=== PATIENT | female | born 1975 | race Caucasian/White ===

== ENCOUNTER 2018-08-04 12:11 | Emergency (ER) | payer SELFPAY ==
[2018-08-04] MEDS ORDERED: Dexamethasone 4 mg/ml Vial ONE (13:14)
[2018-08-04 13:33] LABS: #Lymphocytes 0.9 thou/uL (1.20-3.40); #Monocytes 0.5 thou/uL (0.11-0.59); %Eosinophils 0.1 % (0.0-10.0); %Lymphocytes 16.6 % (21.0-51.0); %Monocytes 10.1 % (0.0-10.0); %Neutrophils 73.3 % (42.0-75.0); Hemoglobin 14.7 g/dL (12.0-16.0); Mean Corpuscular HGB CONC 33.3 g/dL (32.0-36.0); Mean Corpuscular Hemoglobin 30.4 pg (27.0-31.0); Mean Corpuscular Volume 91.1 fL (78.0-98.0); Mean Platelet Volume 8.5 fL (7.4-10.4); Platelet Count 152 thou/uL (130-400); RBC Distribution Width 12.2 % (11.5-14.5); Red Blood Cell (RBC) Count 4.83 mill/uL (4.20-5.40); White Blood Cell (WBC) Count 5.4 thou/uL (4.8-10.8)
[2018-08-04 13:50] LABS: ALT (SGPT) 14 U/L (8-55); AST (SGOT) 17 U/L (5-34); Albumin 3.4 g/dL (3.5-5.0); Alkaline Phosphatase 59 U/L (40-150); Anion Gap 12 mmol/L (10-20); BUN (Urea Nitrogen) 13 mg/dL (7.0-18.7); Bilirubin, Total 0.3 mg/dL (0.2-1.2); Calc. Creatinine Clearance 0 mL/min (70-130); Calcium 8.7 mg/dL (7.8-10.44); Carbon Dioxide 25 mmol/L (22-29); Chloride 104 mmol/L (98-107); Estimated GFR-MDRD 70; Globulin 2.5 g/dL (2.4-3.5); Glucose 257 mg/dL (70-105); Potassium 3.7 mmol/L (3.5-5.1); Protein, Total 5.9 g/dL (6.0-8.3); Sodium 137 mmol/L (136-145)
--- NOTE | 2018-08-04 13:55 | RAD ---
PA AND LATERAL CHEST: History: Shortness of breath. FINDINGS: Heart size and mediastinum within normal limits. The lungs are clear of infiltrates. No significant b say findings. IMPRESSION: No active intrathoracic disease. POS: [facility]
== END 2018-08-04 14:24 | disposition home or self-care (01) ==
LOC: ERS 12:11
DX: J44.1 Chronic obstructive pulmonary disease with (acute) exacerbation (principal); E78.5 Hyperlipidemia, unspecified; E11.9 Type 2 diabetes mellitus without complications; I10 Essential (primary) hypertension; F31.9 Bipolar disorder, unspecified; F17.210 Nicotine dependence, cigarettes, uncomplicated; Z79.899 Other long term (current) drug therapy
CPT/HCPCS: 36415; 71046; 80053; 83880; 84484; 85025; 85379; 93005; 94640; J1100; J7620

== ENCOUNTER 2021-02-06 10:50 | Inpatient (IN) | payer SELFPAY ==
[2021-02-06] MEDS: Labetalol HCl 100 MG/20 ML VIAL SLOW IVP PRN (18:23)
[2021-02-06] MEDS ORDERED: Ondansetron PF 4 MG/2 ML Vial IVP PRN (18:30)
[2021-02-06] MEDS ORDERED: Ondansetron ODT 4 MG TAB SL PRN (18:30)
[2021-02-06] MEDS ORDERED: Dextrose 50% Abboject 50 ML SYRINGE SLOW IVP PRN (18:36)
[2021-02-06] MEDS ORDERED: Dextrose 5% in Water 1,000 ML IV PRN (18:36)
[2021-02-06] MEDS ORDERED: Furosemide 40 MG/4 ML VIAL SLOW IVP SCH ×2 (21:00→23:00)
[2021-02-06] MEDS ORDERED: Carvedilol 25 MG TAB PO SCH (21:00)
[2021-02-06] MEDS: hydrALAZINE 25 MG TAB PO SCH ×2 (21:39→22:59)
[2021-02-06] MEDS: Heparin 5,000 UNITS/ML VIAL SC SCH (21:40)
[2021-02-06] MEDS: Rosuvastatin 10 MG TAB PO SCH (22:11)
[2021-02-06 22:24] LABS: Anion Gap 13 mmol/L (10-20); BUN (Urea Nitrogen) 45 mg/dL (7.0-18.7); Calc. Creatinine Clearance 35 mL/min (70-130); Calcium 8.5 mg/dL (7.8-10.44); Carbon Dioxide 24 mmol/L (22-29); Chloride 109 mmol/L (98-107); Glucose 138 mg/dL (70-105); Potassium 4.9 mmol/L (3.5-5.1); Sodium 141 mmol/L (136-145)
[2021-02-06] MEDS: NPH, Human Insulin Isophane 300 UNIT/3 ML VIAL SC SCH (22:50)
[2021-02-06] MEDS: Gabapentin 300 MG CAP PO SCH (22:50)
[2021-02-06] MEDS ORDERED: Gabapentin 300 MG CAP PO SCH (23:00)
[2021-02-07] MEDS ORDERED: traMADol HCl 50 MG TAB PO PRN (00:28)
[2021-02-07 05:27] LABS: Hemoglobin 7.4 g/dL (12.0-16.0); Mean Corpuscular HGB CONC 32.8 g/dL (32.0-36.0); Mean Corpuscular Hemoglobin 28.9 pg (27.0-31.0); Mean Corpuscular Volume 88.1 fL (78.0-98.0); Mean Platelet Volume 8.8 fL (7.4-10.4); Platelet Count 223 thou/uL (130-400); RBC Distribution Width 13.4 % (11.5-14.5); Red Blood Cell (RBC) Count 2.57 mill/uL (4.20-5.40)
[2021-02-07 05:45] VITALS: BMI 38.3
[2021-02-07 05:50] LABS: Anion Gap 11 mmol/L (10-20); BUN (Urea Nitrogen) 48 mg/dL (7.0-18.7); Calc. Creatinine Clearance 35 mL/min (70-130); Calcium 7.9 mg/dL (7.8-10.44); Carbon Dioxide 22 mmol/L (22-29); Chloride 112 mmol/L (98-107); Glucose 141 mg/dL (70-105); Potassium 4.7 mmol/L (3.5-5.1); Sodium 140 mmol/L (136-145)
[2021-02-07] MEDS: NPH, Human Insulin Isophane 300 UNIT/3 ML VIAL SC SCH ×2 (08:53→20:37)
[2021-02-07] MEDS: Heparin 5,000 UNITS/ML VIAL SC SCH ×3 (08:54→20:38)
[2021-02-07] MEDS: hydrALAZINE 25 MG TAB PO SCH ×3 (08:55→20:34)
[2021-02-07] MEDS ORDERED: Albumin 25% 25 GM/100 ML BOT IVPB ONE (09:00)
[2021-02-07] MEDS: Albumin 25% 25 GM/100 ML BOT IVPB SCH ×3 (09:25→21:56)
[2021-02-07] MEDS ORDERED: ALPRAZolam 0.5 MG TAB PO SCH (10:15)
[2021-02-07 11:43] LABS: Bilirubin Negative (Negative); Blood, Urine 3+ (Negative); Clarity Clear (Clear); Glucose, Urine (Dipstick) 200 mg/dL (Negative); Ketone, Urine Negative (Negative); Leukocyte Negative Leu/uL (Negative); Nitrite Negative (Negative); Protein, Urine (Dipstick) 300 mg/dL (Neg-Trace); RBC/HPF Greater than 50 HPF (0-3); Specific Gravity, Urine 1.019 (1.002-1.036); Squamous Epithelial None Seen HPF (0-3); Urobilinogen Normal mg/dL (Less than 2); WBC/HPF 0-3 HPF (0-3)
[2021-02-07 11:45] LABS: Bacteria/HPF 1+ HPF (None Seen)
[2021-02-07] MEDS: Ferrous Sulfate 325 MG TAB PO SCH (16:09)
[2021-02-07] MEDS: cloNIDine 0.1 MG TAB PO PRN (18:34)
[2021-02-07] MEDS: Gabapentin 300 MG CAP PO SCH (20:34)
[2021-02-07] MEDS: Rosuvastatin 10 MG TAB PO SCH (20:34)
[2021-02-08] MEDS: Albumin 25% 25 GM/100 ML BOT IVPB SCH ×6 (05:25→21:45)
[2021-02-08 05:26] LABS: #Eosinphils 0.4 thou/uL (0.0-0.7); #Lymphocytes 1.7 thou/uL (1.20-3.40); #Monocytes 0.5 thou/uL (0.11-0.59); #Neutrophils 4.8 thou/uL (1.40-6.50); %Basophils 0.6 % (0.0-1.0); %Eosinophils 5.9 % (0.0-10.0); %Lymphocytes 22.7 % (21.0-51.0); %Monocytes 6.6 % (0.0-10.0); %Neutrophils 64.2 % (42.0-75.0); Hemoglobin 7.3 g/dL (12.0-16.0); Mean Corpuscular HGB CONC 33.1 g/dL (32.0-36.0); Mean Corpuscular Hemoglobin 29.2 pg (27.0-31.0); Mean Corpuscular Volume 88.4 fL (78.0-98.0); Mean Platelet Volume 8.5 fL (7.4-10.4); Platelet Count 216 thou/uL (130-400); RBC Distribution Width 13.5 % (11.5-14.5); Red Blood Cell (RBC) Count 2.49 mill/uL (4.20-5.40); White Blood Cell (WBC) Count 7.5 thou/uL (4.8-10.8)
[2021-02-08 05:45] LABS: Anion Gap 11 mmol/L (10-20); BUN (Urea Nitrogen) 58 mg/dL (7.0-18.7); Calc. Creatinine Clearance 39 mL/min (70-130); Calcium 7.9 mg/dL (7.8-10.44); Carbon Dioxide 25 mmol/L (22-29); Chloride 110 mmol/L (98-107); Glucose 170 mg/dL (70-105); Potassium 4.6 mmol/L (3.5-5.1); Sodium 141 mmol/L (136-145)
[2021-02-08] MEDS: HumaLOG 300 UNITS/3 ML VIAL SC PRN ×2 (06:26→16:32)
[2021-02-08] MEDS: hydrALAZINE 25 MG TAB PO SCH ×3 (08:18→21:46)
[2021-02-08] MEDS: Heparin 5,000 UNITS/ML VIAL SC SCH ×3 (08:18→21:47)
[2021-02-08] MEDS: NPH, Human Insulin Isophane 300 UNIT/3 ML VIAL SC SCH ×2 (08:18→21:48)
[2021-02-08] MEDS: Ferrous Sulfate 325 MG TAB PO SCH ×2 (08:19→15:43)
[2021-02-08] MEDS: ALPRAZolam 0.5 MG TAB PO PRN ×2 (08:25→21:47)
[2021-02-08] MEDS: cloNIDine 0.1 MG TAB PO PRN ×2 (08:25→15:43)
[2021-02-08] MEDS ORDERED: Albumin 25% 25 GM/100 ML BOT IVPB ONE (08:28)
[2021-02-08] MEDS ORDERED: Benzonatate 100 MG CAP PO PRN (08:29)
[2021-02-08] MEDS ORDERED: guaiFENesin/Codeine 200 mg/20 mg 10 ml Cup PO PRN (08:30)
[2021-02-08] MEDS: Albuterol Sulfate 2.5 mg/3 ml Neb NEB PRN ×2 (08:38→21:32)
[2021-02-08] MEDS ORDERED: Epoetin (ESRD) 20,000 UNITS/ML SC SCH (08:45)
[2021-02-08] MEDS ORDERED: EPOETIN ALFA-EPBX (ESRD) 4,000 UNIT/ML VIAL SC SCH (12:00)
[2021-02-08] MEDS: Gabapentin 300 MG CAP PO SCH (21:45)
[2021-02-08] MEDS: Rosuvastatin 10 MG TAB PO SCH (21:45)
[2021-02-09] MEDS: Albumin 25% 25 GM/100 ML BOT IVPB SCH (02:37)
[2021-02-09 05:10] LABS: #Eosinphils 0.4 thou/uL (0.0-0.7); #Lymphocytes 1.5 thou/uL (1.20-3.40); #Monocytes 0.5 thou/uL (0.11-0.59); #Neutrophils 3.3 thou/uL (1.40-6.50); %Basophils 0.6 % (0.0-1.0); %Eosinophils 6.7 % (0.0-10.0); %Lymphocytes 26.9 % (21.0-51.0); %Monocytes 7.9 % (0.0-10.0); Hemoglobin 6.6 g/dL (12.0-16.0); Mean Corpuscular HGB CONC 32.6 g/dL (32.0-36.0); Mean Corpuscular Volume 88.9 fL (78.0-98.0); Mean Platelet Volume 8.3 fL (7.4-10.4); Platelet Count 207 thou/uL (130-400); RBC Distribution Width 13.2 % (11.5-14.5); Red Blood Cell (RBC) Count 2.26 mill/uL (4.20-5.40); White Blood Cell (WBC) Count 5.7 thou/uL (4.8-10.8)
[2021-02-09 05:32] LABS: Anion Gap 11 mmol/L (10-20); BUN (Urea Nitrogen) 60 mg/dL (7.0-18.7); Calc. Creatinine Clearance 40 mL/min (70-130); Calcium 8.3 mg/dL (7.8-10.44); Carbon Dioxide 23 mmol/L (22-29); Chloride 114 mmol/L (98-107); Glucose 99 mg/dL (70-105); Potassium 4.8 mmol/L (3.5-5.1); Sodium 143 mmol/L (136-145)
[2021-02-09] MEDS: Labetalol HCl 100 MG/20 ML VIAL SLOW IVP PRN (06:21)
[2021-02-09 07:54] LABS: Reticulocyte Count 1.2 % (0.5-1.5)
[2021-02-09] MEDS: hydrALAZINE 25 MG TAB PO SCH ×3 (08:07→20:59)
[2021-02-09] MEDS: cloNIDine 0.1 MG TAB PO PRN (08:07)
[2021-02-09] MEDS: Heparin 5,000 UNITS/ML VIAL SC SCH ×3 (08:07→21:01)
[2021-02-09] MEDS: Ferrous Sulfate 325 MG TAB PO SCH ×2 (08:07→17:08)
[2021-02-09] MEDS: NPH, Human Insulin Isophane 300 UNIT/3 ML VIAL SC SCH ×2 (08:11→20:59)
[2021-02-09 08:16] LABS: Iron 29 ug/dL (50-170); Iron Binding Capacity, Total 250 mcg/dL (265-497)
[2021-02-09 08:42] LABS: Ferritin 34.23 ng/mL (10-291)
[2021-02-09] MEDS: ALPRAZolam 0.5 MG TAB PO PRN ×2 (08:56→21:02)
[2021-02-09] MEDS ORDERED: Labetalol HCl 100 MG/20 ML VIAL SLOW IVP PRN (08:59)
[2021-02-09] MEDS: Amlodipine 5 MG TAB PO SCH (09:03)
[2021-02-09] MEDS: HumaLOG 300 UNITS/3 ML VIAL SC PRN (17:06)
[2021-02-09] MEDS: Gabapentin 300 MG CAP PO SCH (20:59)
[2021-02-09] MEDS: Rosuvastatin 10 MG TAB PO SCH (21:02)
[2021-02-10] MEDS: cloNIDine 0.1 MG TAB PO PRN ×2 (03:50→15:31)
[2021-02-10 04:41] LABS: #Eosinphils 0.6 thou/uL (0.0-0.7); #Lymphocytes 1.4 thou/uL (1.20-3.40); #Monocytes 0.7 thou/uL (0.11-0.59); #Neutrophils 6.4 thou/uL (1.40-6.50); %Basophils 0.4 % (0.0-1.0); %Eosinophils 6.4 % (0.0-10.0); %Lymphocytes 15.8 % (21.0-51.0); %Monocytes 7.6 % (0.0-10.0); %Neutrophils 69.9 % (42.0-75.0); Hemoglobin 8.3 g/dL (12.0-16.0); Mean Corpuscular HGB CONC 32.8 g/dL (32.0-36.0); Mean Corpuscular Hemoglobin 28.9 pg (27.0-31.0); Platelet Count 227 thou/uL (130-400); RBC Distribution Width 13.2 % (11.5-14.5); Red Blood Cell (RBC) Count 2.87 mill/uL (4.20-5.40); White Blood Cell (WBC) Count 9.1 thou/uL (4.8-10.8)
[2021-02-10 05:03] LABS: Anion Gap 11 mmol/L (10-20); BUN (Urea Nitrogen) 61 mg/dL (7.0-18.7); Calc. Creatinine Clearance 44 mL/min (70-130); Calcium 8.4 mg/dL (7.8-10.44); Carbon Dioxide 20 mmol/L (22-29); Chloride 111 mmol/L (98-107); Glucose 166 mg/dL (70-105); Potassium 4.7 mmol/L (3.5-5.1); Sodium 137 mmol/L (136-145)
[2021-02-10] MEDS: Heparin 5,000 UNITS/ML VIAL SC SCH ×3 (08:36→20:57)
[2021-02-10] MEDS: NPH, Human Insulin Isophane 300 UNIT/3 ML VIAL SC SCH (08:36)
[2021-02-10] MEDS: hydrALAZINE 25 MG TAB PO SCH ×3 (08:37→20:57)
[2021-02-10] MEDS: Ferrous Sulfate 325 MG TAB PO SCH ×2 (08:37→15:31)
[2021-02-10] MEDS: Amlodipine 5 MG TAB PO SCH (08:37)
[2021-02-10] MEDS: HumaLOG 300 UNITS/3 ML VIAL SC PRN (11:25)
[2021-02-10] MEDS: ALPRAZolam 0.5 MG TAB PO PRN (15:30)
[2021-02-10] MEDS: Sodium Bicarbonate Tab 325 MG TAB PO SCH ×2 (15:30→20:57)
[2021-02-10] MEDS: Albuterol Sulfate 2.5 mg/3 ml Neb NEB PRN (16:23)
[2021-02-10] MEDS: Carvedilol 6.25 MG TAB PO SCH (17:07)
[2021-02-10] MEDS: glipiZIDE 5 MG TAB PO SCH (17:07)
[2021-02-10] MEDS: Gabapentin 300 MG CAP PO SCH (20:56)
[2021-02-10] MEDS: Rosuvastatin 10 MG TAB PO SCH (20:57)
[2021-02-10] MEDS ORDERED: Senokot S 8.6-50 MG TAB PO PRN (21:12)
[2021-02-10] MEDS ORDERED: Bisacodyl 10 MG SUPP PR PRN (21:12)
[2021-02-10] MEDS: HumuLIN 70/30 (300 UNITS/3 ML VIAL) SC SCH (21:28)
[2021-02-11] MEDS: ALPRAZolam 0.5 MG TAB PO PRN (00:02)
[2021-02-11 04:40] LABS: #Eosinphils 0.7 thou/uL (0.0-0.7); #Lymphocytes 2.1 thou/uL (1.20-3.40); #Monocytes 0.8 thou/uL (0.11-0.59); #Neutrophils 5.5 thou/uL (1.40-6.50); %Basophils 0.4 % (0.0-1.0); %Eosinophils 8.1 % (0.0-10.0); %Lymphocytes 23.3 % (21.0-51.0); %Monocytes 8.3 % (0.0-10.0); %Neutrophils 59.8 % (42.0-75.0); Mean Corpuscular Hemoglobin 29.2 pg (27.0-31.0); Mean Corpuscular Volume 88.5 fL (78.0-98.0); Mean Platelet Volume 8.2 fL (7.4-10.4); Platelet Count 224 thou/uL (130-400); RBC Distribution Width 13.3 % (11.5-14.5); Red Blood Cell (RBC) Count 2.74 mill/uL (4.20-5.40); White Blood Cell (WBC) Count 9.2 thou/uL (4.8-10.8)
[2021-02-11 04:46] LABS: Hemoglobin A1c 6.5 % (4.0-6.0)
[2021-02-11 04:57] LABS: Anion Gap 10 mmol/L (10-20); BUN (Urea Nitrogen) 60 mg/dL (7.0-18.7); Calc. Creatinine Clearance 44 mL/min (70-130); Calcium 8.1 mg/dL (7.8-10.44); Carbon Dioxide 22 mmol/L (22-29); Chloride 114 mmol/L (98-107); Glucose 73 mg/dL (70-105); Potassium 4.8 mmol/L (3.5-5.1); Sodium 141 mmol/L (136-145)
[2021-02-11] MEDS: glipiZIDE 5 MG TAB PO SCH ×2 (08:29→16:00)
[2021-02-11] MEDS: Bisacodyl 5 MG TAB PO PRN (08:29)
[2021-02-11] MEDS: Amlodipine 5 MG TAB PO SCH (08:30)
[2021-02-11] MEDS: Carvedilol 6.25 MG TAB PO SCH (08:30)
[2021-02-11] MEDS: Sodium Bicarbonate Tab 325 MG TAB PO SCH ×3 (08:30→20:59)
[2021-02-11] MEDS: hydrALAZINE 25 MG TAB PO SCH ×3 (08:30→20:59)
[2021-02-11] MEDS: Ferrous Sulfate 325 MG TAB PO SCH ×2 (08:30→16:00)
[2021-02-11] MEDS: Heparin 5,000 UNITS/ML VIAL SC SCH ×3 (08:31→20:58)
[2021-02-11] MEDS: HumuLIN 70/30 (300 UNITS/3 ML VIAL) SC SCH ×2 (08:31→21:00)
[2021-02-11] MEDS ORDERED: Furosemide 20 MG TAB PO SCH ×2 (11:15→14:00)
[2021-02-11] MEDS ORDERED: Acetaminophen 325 MG TAB PO PRN (13:53)
[2021-02-11] MEDS ORDERED: Carvedilol 6.25 MG TAB PO SCH (17:00)
[2021-02-11] MEDS: Rosuvastatin 10 MG TAB PO SCH (20:59)
[2021-02-11] MEDS: Gabapentin 300 MG CAP PO SCH (21:00)
[2021-02-11] MEDS ORDERED: hydrOXYzine 25 MG TAB PO SCH (21:22)
[2021-02-11] MEDS: Albuterol Sulfate 2.5 mg/3 ml Neb NEB PRN (21:36)
[2021-02-12 04:27] LABS: #Eosinphils 0.7 thou/uL (0.0-0.7); #Lymphocytes 1.9 thou/uL (1.20-3.40); #Neutrophils 6.2 thou/uL (1.40-6.50); %Basophils 0.5 % (0.0-1.0); %Lymphocytes 19.3 % (21.0-51.0); %Monocytes 9.7 % (0.0-10.0); %Neutrophils 63.5 % (42.0-75.0); Hemoglobin 7.6 g/dL (12.0-16.0); Mean Corpuscular HGB CONC 32.6 g/dL (32.0-36.0); Mean Corpuscular Hemoglobin 28.8 pg (27.0-31.0); Mean Corpuscular Volume 88.2 fL (78.0-98.0); Mean Platelet Volume 8.3 fL (7.4-10.4); Platelet Count 219 thou/uL (130-400); RBC Distribution Width 13.4 % (11.5-14.5); Red Blood Cell (RBC) Count 2.63 mill/uL (4.20-5.40); White Blood Cell (WBC) Count 9.8 thou/uL (4.8-10.8)
[2021-02-12 04:50] LABS: Anion Gap 9 mmol/L (10-20); BUN (Urea Nitrogen) 59 mg/dL (7.0-18.7); Calc. Creatinine Clearance 43 mL/min (70-130); Calcium 8.6 mg/dL (7.8-10.44); Carbon Dioxide 23 mmol/L (22-29); Chloride 115 mmol/L (98-107); Glucose 93 mg/dL (70-105); Potassium 5.3 mmol/L (3.5-5.1); Sodium 142 mmol/L (136-145)
[2021-02-12] MEDS: Sodium Bicarbonate Tab 325 MG TAB PO SCH (08:36)
[2021-02-12] MEDS: Heparin 5,000 UNITS/ML VIAL SC SCH (08:37)
[2021-02-12] MEDS: Ferrous Sulfate 325 MG TAB PO SCH (08:37)
[2021-02-12] MEDS: Amlodipine 5 MG TAB PO SCH (08:37)
[2021-02-12] MEDS: glipiZIDE 5 MG TAB PO SCH (08:37)
[2021-02-12] MEDS: HumuLIN 70/30 (300 UNITS/3 ML VIAL) SC SCH (08:38)
[2021-02-12] MEDS: Bisacodyl 5 MG TAB PO PRN (08:50)
[2021-02-12] MEDS ORDERED: Carvedilol 25 MG TAB PO SCH (09:00)
[2021-02-12] MEDS ORDERED: hydrALAZINE 25 MG TAB PO SCH (09:00)
[2021-02-12] MEDS ORDERED: Furosemide 20 MG/2 ML VIAL SLOW IVP SCH (09:00)
[2021-02-12] MEDS: HumaLOG 300 UNITS/3 ML VIAL SC PRN (11:33)
[2021-02-12 11:40] VITALS: BP 150/80; TEMP 98.1
[2021-02-13] MEDS ORDERED: PARoxetine 20 MG TAB PO SCH (09:00)
== END 2021-02-12 12:46 | disposition home or self-care (01) | DRG 682 ==
LOC: 2NO 10:50
PROVIDERS: ADMIT Internal Medicine; ATTEND Internal Medicine
PROC: 30233N1 Transfusion of Nonautologous Red Blood Cells into Peripheral Vein, Percutaneous Approach (ICD-10-PCS; principal; 2021-02-09)
DX: N17.9 Acute kidney failure, unspecified (principal); I50.33 Acute on chronic diastolic (congestive) heart failure; I13.0 Hypertensive heart and chronic kidney disease with heart failure and stage 1 through stage 4 chronic kidney disease, or unspecified chronic kidney disease; I16.1 Hypertensive emergency; Z20.822 Contact with and (suspected) exposure to COVID-19; D50.9 Iron deficiency anemia, unspecified; E11.22 Type 2 diabetes mellitus with diabetic chronic kidney disease; E78.5 Hyperlipidemia, unspecified; F31.9 Bipolar disorder, unspecified; E11.42 Type 2 diabetes mellitus with diabetic polyneuropathy; E87.5 Hyperkalemia; D63.1 Anemia in chronic kidney disease; N18.9 Chronic kidney disease, unspecified; Z79.4 Long term (current) use of insulin; Z79.51 Long term (current) use of inhaled steroids; Z79.899 Other long term (current) drug therapy; Z88.8 Allergy status to other drugs, medicaments and biological substances
CPT/HCPCS: 36415; 36416; 36430; 76770; 80048; 81001; 82607; 82728; 82746; 83036; 83540; 83550; 83615; 84145; 85025; 85027; 85046; 86850; 86900; 86901; 93306; 93970; 94640; J1644; J1815; J1940; J7611; P9016; P9047; Q5105

== ENCOUNTER 2021-08-01 16:13 | Inpatient (IN) | payer OTHER, SELFPAY ==
[2021-08-01] MEDS ORDERED: Ondansetron PF 4 MG/2 ML Vial IVP PRN (21:49)
[2021-08-01] MEDS ORDERED: hydrALAZINE 20 MG/ML VIAL SLOW IVP PRN (21:51)
[2021-08-01] MEDS ORDERED: Carvedilol 25 MG TAB PO SCH (22:00)
[2021-08-01] MEDS ORDERED: Dextrose 50% Abboject 50 ML SYRINGE SLOW IVP PRN (22:05)
[2021-08-01] MEDS ORDERED: Dextrose 5% in Water 1,000 ML IV PRN (22:05)
[2021-08-01] MEDS: Amlodipine 5 MG TAB PO SCH ×2 (22:44→22:46)
[2021-08-01] MEDS ORDERED: Furosemide 40 MG/4 ML VIAL SLOW IVP SCH (23:45)
[2021-08-02 04:52] LABS: #Eosinphils 0.3 thou/uL (0.0-0.7); #Lymphocytes 1.5 thou/uL (1.20-3.40); #Neutrophils 8.2 thou/uL (1.40-6.50); %Basophils 0.4 % (0.0-1.0); %Lymphocytes 13.2 % (21.0-51.0); %Monocytes 8.8 % (0.0-10.0); %Neutrophils 74.5 % (42.0-75.0); Hemoglobin 6.6 g/dL (12.0-16.0); Mean Corpuscular Hemoglobin 29.6 pg (27.0-31.0); Mean Corpuscular Volume 89.7 fL (78.0-98.0); Mean Platelet Volume 7.6 fL (7.4-10.4); Platelet Count 229 thou/uL (130-400); RBC Distribution Width 13.3 % (11.5-14.5); Red Blood Cell (RBC) Count 2.22 mill/uL (4.20-5.40)
[2021-08-02 05:22] LABS: Anion Gap 13 mmol/L (10-20); BUN (Urea Nitrogen) 62 mg/dL (7.0-18.7); Calc. Creatinine Clearance 37 mL/min (70-130); Calcium 7.4 mg/dL (7.8-10.44); Carbon Dioxide 17 mmol/L (22-29); Chloride 113 mmol/L (98-107); Glucose 212 mg/dL (70-105); Potassium 5.6 mmol/L (3.5-5.1); Sodium 137 mmol/L (136-145)
[2021-08-02 05:23] LABS: ALT (SGPT) 21 U/L (8-55); AST (SGOT) 13 U/L (5-34); Albumin 2.1 g/dL (3.5-5.0); Alkaline Phosphatase 57 U/L (40-110); Bilirubin, Direct 0.1 mg/dL (0.1-0.3); Bilirubin, Total Less than 0.2 mg/dL (0.2-1.2); Protein, Total 4.6 g/dL (6.0-8.3)
[2021-08-02] MEDS: HumaLOG 300 UNITS/3 ML VIAL SC PRN ×4 (06:05→22:28)
[2021-08-02] MEDS: Furosemide 40 MG/4 ML VIAL SLOW IVP SCH ×2 (06:05→13:51)
[2021-08-02] MEDS: Ferrous Sulfate 325 MG TAB PO SCH ×2 (08:52→17:39)
[2021-08-02] MEDS: Carvedilol 25 MG TAB PO SCH ×2 (08:52→22:26)
[2021-08-02] MEDS: hydrALAZINE 25 MG TAB PO SCH ×3 (08:52→22:27)
[2021-08-02] MEDS: cloNIDine 0.1 MG TAB PO SCH ×2 (08:52→22:27)
[2021-08-02] MEDS: Amlodipine 5 MG TAB PO SCH (08:52)
[2021-08-02] MEDS ORDERED: FLU VACC QS2021-22(6MOS UP)/PF 60 MCG/0.5 ML SYRINGE IM ONE (09:00)
[2021-08-02 09:44] LABS: Vancomycin, Random 24.3 ug/mL (See Comment)
[2021-08-02] MEDS ORDERED: Vancomycin 1 GM in Premix Bag 1 BAG IVPB SCH (10:00)
[2021-08-02 10:10] LABS: Iron 23 ug/dL (50-170); Iron Binding Capacity, Total 251 mcg/dL (265-497)
[2021-08-02 10:12] LABS: Ferritin 83.72 ng/mL (10-291)
[2021-08-02] MEDS ORDERED: Lorazepam 2 MG/ML VIAL SLOW IVP SCH (11:45)
[2021-08-02] MEDS: Cefepime 2 GM in Sodium Chloride 0.9% 100 ML IVPB SCH (11:48)
[2021-08-02] MEDS: Acetaminophen 325 MG TAB PO PRN (11:57)
[2021-08-02 13:47] LABS: Fluid, pH - Pleural Fld Greater than 7.50 (7.60 - 7.66)
[2021-08-02 13:49] LABS: Fluid, Triglycerides 13 mg/dL (Not Available); Pleural Fluid, Amylase Less than 30 U/L (Not Available); Pleural Fluid, Glucose 241 mg/dL; Pleural Fluid, LDH 223 U/L (Not Available); Pleural Fluid, Protein 1.4 g/dL
[2021-08-02] MEDS: EPOETIN ALFA-EPBX (ESRD) 4,000 UNIT/ML VIAL SC SCH (13:51)
[2021-08-02 13:58] LABS: RBC Count-Automated (BF) 3634 /cu.mm; WBC/Nucleated-Auto (BF) 2852 /cu.mm
[2021-08-02 14:03] LABS: BF Color Pink; Body Fluid Source Thoracentesis Fluid; Clarity Hazy (Clear); Tube # EDTA
[2021-08-02 14:13] LABS: BF Segmented Neutrophils 32 %; Cell Count Non Hematic 48 %; Lymphocytes 20 %
[2021-08-02] MEDS ORDERED: HYDROmorphone 0.5 MG/0.5 ML SYRINGE SLOW IVP SCH (14:30)
[2021-08-02] MEDS ORDERED: Iron Sucrose Complex 200 MG in Sodium Chloride 0.9% 100 ML IVPB SCH (15:15)
[2021-08-02] MEDS ORDERED: Iron, Sodium Ferric Gluconate 250 MG in Sodium Chloride 0.9% 250 ML 250 ML IVPB SCH (15:30)
[2021-08-02] MEDS ORDERED: Folic Acid 1 MG TAB PO SCH (15:30)
[2021-08-02 16:25] LABS: Hemoglobin A1c 7.2 % (4.0-6.0)
[2021-08-02] MEDS: Albumin 25% 25 GM/100 ML BOT IVPB SCH ×2 (18:28→22:26)
[2021-08-02] MEDS ORDERED: Metoclopramide HCl 10 MG/2 ML VIAL IVP SCH (20:00)
[2021-08-02 21:16] LABS: Vancomycin, Random 22.2 ug/mL (See Comment)
[2021-08-02] MEDS ORDERED: Ondansetron PF 4 MG/2 ML Vial IVP SCH (21:50)
[2021-08-02] MEDS: Gabapentin 300 MG CAP PO SCH (22:27)
[2021-08-02] MEDS: NPH, Human Insulin Isophane 300 UNIT/3 ML VIAL SC SCH (22:27)
[2021-08-02] MEDS: Rosuvastatin 20 MG TAB PO SCH (22:28)
[2021-08-03] MEDS: Albumin 25% 25 GM/100 ML BOT IVPB SCH ×2 (03:24→19:49)
[2021-08-03 05:27] LABS: #Eosinphils 0.1 thou/uL (0.0-0.7); #Lymphocytes 0.8 thou/uL (1.20-3.40); #Monocytes 0.6 thou/uL (0.11-0.59); #Neutrophils 8.4 thou/uL (1.40-6.50); %Basophils 0.1 % (0.0-1.0); %Eosinophils 1.1 % (0.0-10.0); %Lymphocytes 7.7 % (21.0-51.0); %Monocytes 5.7 % (0.0-10.0); %Neutrophils 85.4 % (42.0-75.0); Hemoglobin 6.6 g/dL (12.0-16.0); Mean Corpuscular HGB CONC 32.8 g/dL (32.0-36.0); Mean Corpuscular Hemoglobin 28.9 pg (27.0-31.0); Mean Corpuscular Volume 88.3 fL (78.0-98.0); Mean Platelet Volume 7.8 fL (7.4-10.4); Platelet Count 200 thou/uL (130-400); Red Blood Cell (RBC) Count 2.29 mill/uL (4.20-5.40); White Blood Cell (WBC) Count 9.8 thou/uL (4.8-10.8)
[2021-08-03 05:43] LABS: Anion Gap 14 mmol/L (10-20); BUN (Urea Nitrogen) 62 mg/dL (7.0-18.7); Calc. Creatinine Clearance 35 mL/min (70-130); Calcium 7.4 mg/dL (7.8-10.44); Carbon Dioxide 18 mmol/L (22-29); Chloride 108 mmol/L (98-107); Glucose 295 mg/dL (70-105); Potassium 5.3 mmol/L (3.5-5.1); Sodium 135 mmol/L (136-145)
[2021-08-03] MEDS: Furosemide 40 MG/4 ML VIAL SLOW IVP SCH ×2 (05:56→14:48)
[2021-08-03] MEDS: HumaLOG 300 UNITS/3 ML VIAL SC PRN ×3 (05:57→17:25)
[2021-08-03] MEDS: Ferrous Sulfate 325 MG TAB PO SCH ×2 (09:12→21:29)
[2021-08-03] MEDS: Amlodipine 5 MG TAB PO SCH (09:12)
[2021-08-03] MEDS: Carvedilol 25 MG TAB PO SCH ×2 (09:13→21:31)
[2021-08-03] MEDS: Folic Acid 1 MG TAB PO SCH (09:13)
[2021-08-03] MEDS: cloNIDine 0.1 MG TAB PO SCH ×2 (09:13→21:31)
[2021-08-03] MEDS: hydrALAZINE 25 MG TAB PO SCH ×3 (09:19→21:34)
[2021-08-03] MEDS: NPH, Human Insulin Isophane 300 UNIT/3 ML VIAL SC SCH ×2 (09:24→21:39)
[2021-08-03] MEDS: Cefepime 2 GM in Sodium Chloride 0.9% 100 ML IVPB SCH (10:09)
[2021-08-03] MEDS ORDERED: Furosemide 40 MG/4 ML VIAL SLOW IVP SCH (14:45)
[2021-08-03] MEDS ORDERED: Albumin 25% 25 GM/100 ML BOT IVPB SCH (16:00)
[2021-08-03] MEDS ORDERED: Dextrose 5% in Water 1,000 ML IV PRN (16:42)
[2021-08-03] MEDS ORDERED: Dextrose 50% Abboject 50 ML SYRINGE SLOW IVP PRN (16:42)
[2021-08-03] MEDS: Albuterol Sulfate 2.5 mg/3 ml Neb NEB PRN ×2 (19:58→23:14)
[2021-08-03] MEDS ORDERED: ALPRAZolam 0.25 MG TAB PO SCH (20:14)
[2021-08-03] MEDS: Gabapentin 300 MG CAP PO SCH (21:31)
[2021-08-03] MEDS: medroxyPROGESTERone Acetate 5 MG TAB PO SCH (21:34)
[2021-08-03] MEDS: Rosuvastatin 20 MG TAB PO SCH (21:38)
[2021-08-03] MEDS: Lantus 1000 UNITS/10 ML VIAL SC SCH (21:40)
[2021-08-03 21:51] LABS: Vancomycin, Random 19.3 ug/mL (See Comment)
[2021-08-04 02:27] LABS: Pregnancy Test - Urine (BHCG) Negative (Negative); Specific Gravity 1.013 (1.002-1.036)
[2021-08-04 02:28] LABS: Pregu Control Background? CLEAR/WHITE (CLR/WHITE); Pregu Control Bar Appear? YES (CONTROL BAR)
[2021-08-04] MEDS: Acetaminophen 325 MG TAB PO PRN ×2 (03:51→23:55)
[2021-08-04 04:41] LABS: #Eosinphils 0.2 thou/uL (0.0-0.7); #Lymphocytes 0.6 thou/uL (1.20-3.40); #Monocytes 0.7 thou/uL (0.11-0.59); #Neutrophils 6.1 thou/uL (1.40-6.50); %Basophils 0.1 % (0.0-1.0); %Lymphocytes 7.4 % (21.0-51.0); %Monocytes 9.8 % (0.0-10.0); %Neutrophils 79.7 % (42.0-75.0); Hemoglobin 7.1 g/dL (12.0-16.0); Mean Corpuscular HGB CONC 33.4 g/dL (32.0-36.0); Mean Corpuscular Hemoglobin 29.7 pg (27.0-31.0); Mean Corpuscular Volume 89.1 fL (78.0-98.0); Mean Platelet Volume 7.3 fL (7.4-10.4); Platelet Count 164 thou/uL (130-400); White Blood Cell (WBC) Count 7.6 thou/uL (4.8-10.8)
[2021-08-04 04:59] LABS: Anion Gap 12 mmol/L (10-20); BUN (Urea Nitrogen) 61 mg/dL (7.0-18.7); Calc. Creatinine Clearance 33 mL/min (70-130); Calcium 7.5 mg/dL (7.8-10.44); Carbon Dioxide 17 mmol/L (22-29); Chloride 109 mmol/L (98-107); Glucose 236 mg/dL (70-105); Potassium 5.6 mmol/L (3.5-5.1); Sodium 132 mmol/L (136-145)
[2021-08-04] MEDS: Furosemide 40 MG/4 ML VIAL SLOW IVP SCH (05:19)
[2021-08-04] MEDS: HumaLOG 300 UNITS/3 ML VIAL SC PRN ×2 (06:06→22:19)
[2021-08-04] MEDS ORDERED: cloNIDine 0.1 MG TAB PO SCH (07:46)
[2021-08-04] MEDS ORDERED: NIFEdipine XL 30 MG TAB PO SCH ×2 (09:00)
[2021-08-04] MEDS: hydrALAZINE 25 MG TAB PO SCH ×3 (10:08→20:27)
[2021-08-04] MEDS: NIFEdipine XL 60 MG TAB PO SCH (10:08)
[2021-08-04] MEDS: cloNIDine 0.1 MG TAB PO SCH ×2 (10:09→20:29)
[2021-08-04] MEDS: Ferrous Sulfate 325 MG TAB PO SCH ×2 (10:09→19:26)
[2021-08-04] MEDS: Folic Acid 1 MG TAB PO SCH (10:10)
[2021-08-04] MEDS: Carvedilol 25 MG TAB PO SCH ×2 (10:10→22:36)
[2021-08-04] MEDS: NPH, Human Insulin Isophane 300 UNIT/3 ML VIAL SC SCH ×2 (10:10→22:00)
[2021-08-04] MEDS: medroxyPROGESTERone Acetate 5 MG TAB PO SCH ×2 (10:11→20:30)
[2021-08-04] MEDS: Cefepime 2 GM in Sodium Chloride 0.9% 100 ML IVPB SCH (10:35)
[2021-08-04] MEDS: Albumin 25% 25 GM/100 ML BOT IVPB SCH (11:27)
[2021-08-04] MEDS: Albuterol Sulfate 2.5 mg/3 ml Neb NEB PRN (16:41)
[2021-08-04] MEDS ORDERED: Meropenem 1 GM in Sodium Chloride 0.9% 100 ML IVPB SCH (17:00)
[2021-08-04] MEDS ORDERED: Tranexamic Acid 1,000 MG in Sodium Chloride 0.9% 250 ML 250 ML IVPB SCH (18:00)
[2021-08-04 18:14] LABS: #Eosinphils 0.2 thou/uL (0.0-0.7); #Lymphocytes 0.8 thou/uL (1.20-3.40); #Monocytes 0.7 thou/uL (0.11-0.59); #Neutrophils 5.7 thou/uL (1.40-6.50); %Basophils 0.1 % (0.0-1.0); %Eosinophils 3.3 % (0.0-10.0); %Lymphocytes 10.9 % (21.0-51.0); %Monocytes 9.5 % (0.0-10.0); %Neutrophils 76.3 % (42.0-75.0); Hemoglobin 8.6 g/dL (12.0-16.0); Mean Corpuscular HGB CONC 32.7 g/dL (32.0-36.0); Mean Corpuscular Hemoglobin 29.4 pg (27.0-31.0); Mean Corpuscular Volume 90.2 fL (78.0-98.0); Mean Platelet Volume 7.6 fL (7.4-10.4); Platelet Count 175 thou/uL (130-400); RBC Distribution Width 12.9 % (11.5-14.5); Red Blood Cell (RBC) Count 2.92 mill/uL (4.20-5.40); White Blood Cell (WBC) Count 7.5 thou/uL (4.8-10.8)
[2021-08-04 18:22] LABS: Actual Bicarbonate (HCO3a) 16.2 mEq/L (22-28); Base Excess (BEa) -10.6 mEq/L (-2.0 to +3.0); CO2 Tension 39.9 mmHg (35.0-45.0); Calcium, Ionized (arterial) 1.12 mmol/L (1.12-1.30); Carboxyhemoglobin (COHb) 0.3 gm% (0.0-3.0); Hemoglobin (Hb) 8.8 g/dL (12.0-16.0); Potassium - ABG Lab 5.19 mmol/L (3.70-5.30)
[2021-08-04 18:24] LABS: INR-International Normal Ratio 1.2; Prothrombin Time 15.1 sec (12.0-14.7)
[2021-08-04 18:26] LABS: O2 Tension (PaO2), arterial 51.7 mmHg (80.0-100.0); pH, Arterial 7.23 (7.35-7.45)
[2021-08-04 18:27] LABS: Puncture Site LRA
[2021-08-04] MEDS ORDERED: Furosemide 40 MG/4 ML VIAL ONE (18:27)
[2021-08-04] MEDS ORDERED: Furosemide 40 MG/4 ML VIAL SLOW IVP SCH (18:30)
[2021-08-04] MEDS: Albuterol Sulfate 2.5 mg/3 ml Neb NEB SCH ×2 (19:18→22:28)
[2021-08-04 19:30] LABS: Anion Gap 13 mmol/L (10-20); BUN (Urea Nitrogen) 66 mg/dL (7.0-18.7); Calc. Creatinine Clearance 32 mL/min (70-130); Calcium 7.6 mg/dL (7.8-10.44); Carbon Dioxide 17 mmol/L (22-29); Chloride 110 mmol/L (98-107); Glucose 213 mg/dL (70-105); Potassium 5.3 mmol/L (3.5-5.1); Sodium 135 mmol/L (136-145)
[2021-08-04 19:47] LABS: Vancomycin, Random 15.6 ug/mL (See Comment)
[2021-08-04] MEDS ORDERED: Vancomycin HCl 750 MG in Sodium Chloride 0.9% 250 ML 250 ML IVPB SCH (20:15)
[2021-08-04] MEDS: Gabapentin 300 MG CAP PO SCH (20:28)
[2021-08-04] MEDS: Rosuvastatin 20 MG TAB PO SCH (20:29)
[2021-08-04] MEDS: Lantus 1000 UNITS/10 ML VIAL SC SCH (22:18)
[2021-08-05] MEDS: Albumin 25% 25 GM/100 ML BOT IVPB SCH ×3 (00:20→08:37)
[2021-08-05] MEDS: Albuterol Sulfate 2.5 mg/3 ml Neb NEB SCH ×6 (01:42→22:30)
[2021-08-05] MEDS: Meropenem 500 MG in Sodium Chloride 0.9% 100 ML IVPB SCH ×2 (02:50→13:02)
[2021-08-05 03:56] LABS: #Eosinphils 0.1 thou/uL (0.0-0.7); #Lymphocytes 0.6 thou/uL (1.20-3.40); #Monocytes 0.7 thou/uL (0.11-0.59); #Neutrophils 6.1 thou/uL (1.40-6.50); %Basophils 0.2 % (0.0-1.0); %Eosinophils 1.7 % (0.0-10.0); %Lymphocytes 7.5 % (21.0-51.0); %Monocytes 9.6 % (0.0-10.0); %Neutrophils 81.1 % (42.0-75.0); Mean Corpuscular HGB CONC 33.1 g/dL (32.0-36.0); Mean Corpuscular Hemoglobin 29.5 pg (27.0-31.0); Mean Corpuscular Volume 89.2 fL (78.0-98.0); Mean Platelet Volume 7.7 fL (7.4-10.4); Platelet Count 153 thou/uL (130-400); RBC Distribution Width 12.9 % (11.5-14.5); White Blood Cell (WBC) Count 7.6 thou/uL (4.8-10.8)
[2021-08-05 04:13] LABS: Anion Gap 11 mmol/L (10-20); BUN (Urea Nitrogen) 68 mg/dL (7.0-18.7); Calc. Creatinine Clearance 31 mL/min (70-130); Calcium 7.3 mg/dL (7.8-10.44); Carbon Dioxide 17 mmol/L (22-29); Chloride 112 mmol/L (98-107); Glucose 196 mg/dL (70-105); Phosphorus 4.8 mg/dL (2.3-4.7); Potassium 5.3 mmol/L (3.5-5.1); Sodium 135 mmol/L (136-145)
[2021-08-05] MEDS ORDERED: Furosemide 40 MG/4 ML VIAL SLOW IVP SCH (09:00)
[2021-08-05] MEDS: Ferrous Sulfate 325 MG TAB PO SCH ×2 (09:18→17:24)
[2021-08-05] MEDS: Carvedilol 25 MG TAB PO SCH ×2 (09:18→21:45)
[2021-08-05] MEDS: hydrALAZINE 25 MG TAB PO SCH ×3 (09:19→22:32)
[2021-08-05] MEDS: cloNIDine 0.1 MG TAB PO SCH ×2 (09:19→21:45)
[2021-08-05] MEDS: Folic Acid 1 MG TAB PO SCH (09:19)
[2021-08-05] MEDS: Furosemide 40 MG/4 ML VIAL SLOW IVP SCH ×2 (09:19→19:42)
[2021-08-05] MEDS: NIFEdipine XL 60 MG TAB PO SCH (09:20)
[2021-08-05] MEDS: medroxyPROGESTERone Acetate 5 MG TAB PO SCH ×2 (09:20→21:45)
[2021-08-05] MEDS: NPH, Human Insulin Isophane 300 UNIT/3 ML VIAL SC SCH ×2 (09:21→22:33)
[2021-08-05] MEDS: Calcium Acetate 667 MG CAP PO SCH ×2 (13:01→17:24)
[2021-08-05] MEDS: HumaLOG 300 UNITS/3 ML VIAL SC PRN ×2 (13:02→18:13)
[2021-08-05] MEDS ORDERED: Lorazepam 0.5 MG TAB PO PRN (18:41)
[2021-08-05] MEDS ORDERED: methylPREDNISolone Sod Succ/PF 125 MG/2 ML VIAL IVP SCH (19:00)
[2021-08-05 19:46] LABS: Anion Gap 13 mmol/L (10-20); BUN (Urea Nitrogen) 71 mg/dL (7.0-18.7); Calc. Creatinine Clearance 0 mL/min (70-130); Calcium 7.6 mg/dL (7.8-10.44); Carbon Dioxide 18 mmol/L (22-29); Chloride 110 mmol/L (98-107); Glucose 214 mg/dL (70-105); Potassium 5.3 mmol/L (3.5-5.1); Sodium 136 mmol/L (136-145)
[2021-08-05] MEDS: Gabapentin 300 MG CAP PO SCH (21:45)
[2021-08-05] MEDS: Rosuvastatin 20 MG TAB PO SCH (22:34)
[2021-08-06] MEDS: Meropenem 500 MG in Sodium Chloride 0.9% 100 ML IVPB SCH ×2 (00:46→12:31)
[2021-08-06 02:46] LABS: #Basophils 0.1 thou/uL (0.0-0.2); #Lymphocytes 0.2 thou/uL (1.20-3.40); #Monocytes 0.2 thou/uL (0.11-0.59); #Neutrophils 7.6 thou/uL (1.40-6.50); %Basophils 1.2 % (0.0-1.0); %Eosinophils 0.3 % (0.0-10.0); %Lymphocytes 2.7 % (21.0-51.0); %Monocytes 1.8 % (0.0-10.0); %Neutrophils 94.1 % (42.0-75.0); Hemoglobin 8.2 g/dL (12.0-16.0); Mean Corpuscular HGB CONC 32.7 g/dL (32.0-36.0); Mean Corpuscular Hemoglobin 29.5 pg (27.0-31.0); Mean Corpuscular Volume 90.3 fL (78.0-98.0); Mean Platelet Volume 7.6 fL (7.4-10.4); Platelet Count 150 thou/uL (130-400); RBC Distribution Width 13.2 % (11.5-14.5); Red Blood Cell (RBC) Count 2.78 mill/uL (4.20-5.40); White Blood Cell (WBC) Count 8.1 thou/uL (4.8-10.8)
[2021-08-06 03:06] LABS: Anion Gap 13 mmol/L (10-20); BUN (Urea Nitrogen) 74 mg/dL (7.0-18.7); Calc. Creatinine Clearance 0 mL/min (70-130); Calcium 7.8 mg/dL (7.8-10.44); Carbon Dioxide 17 mmol/L (22-29); Chloride 108 mmol/L (98-107); Glucose 253 mg/dL (70-105); Magnesium 1.7 mg/dL (1.6-2.6); Potassium 5.5 mmol/L (3.5-5.1); Sodium 132 mmol/L (136-145)
[2021-08-06] MEDS: Albuterol Sulfate 2.5 mg/3 ml Neb NEB SCH ×5 (03:56→18:58)
[2021-08-06] MEDS: Carvedilol 25 MG TAB PO SCH ×2 (09:09→20:53)
[2021-08-06] MEDS: Ferrous Sulfate 325 MG TAB PO SCH ×2 (09:09→16:56)
[2021-08-06] MEDS: Calcium Acetate 667 MG CAP PO SCH ×3 (09:09→16:56)
[2021-08-06] MEDS: Calcitriol 0.25 MCG CAP PO SCH (09:09)
[2021-08-06] MEDS: Furosemide 40 MG/4 ML VIAL SLOW IVP SCH ×2 (09:10→20:52)
[2021-08-06] MEDS: cloNIDine 0.1 MG TAB PO SCH ×2 (09:10→20:52)
[2021-08-06] MEDS: Folic Acid 1 MG TAB PO SCH (09:10)
[2021-08-06] MEDS: hydrALAZINE 25 MG TAB PO SCH ×3 (09:10→20:51)
[2021-08-06] MEDS: medroxyPROGESTERone Acetate 5 MG TAB PO SCH ×2 (09:10→20:53)
[2021-08-06] MEDS: NPH, Human Insulin Isophane 300 UNIT/3 ML VIAL SC SCH ×2 (09:11→20:54)
[2021-08-06 09:29] LABS: Vancomycin, Random 18.9 ug/mL (See Comment)
[2021-08-06] MEDS ORDERED: Vancomycin HCl 500 MG in Sodium Chloride 0.9% 100 ML IVPB SCH (12:00)
[2021-08-06 12:16] LABS: Fungus Smear NR
[2021-08-06] MEDS: HumaLOG 300 UNITS/3 ML VIAL SC PRN ×3 (12:32→21:25)
[2021-08-06] MEDS ORDERED: Polyethylene Glycol 3350 17 GM Packet PO PRN (13:30)
[2021-08-06] MEDS ORDERED: predniSONE 20 MG TAB PO SCH (14:00)
[2021-08-06] MEDS: Gabapentin 300 MG CAP PO SCH (20:50)
[2021-08-06] MEDS: Rosuvastatin 20 MG TAB PO SCH (20:54)
[2021-08-07] MEDS: Albuterol Sulfate 2.5 mg/3 ml Neb NEB SCH ×7 (00:01→23:25)
[2021-08-07] MEDS: Meropenem 500 MG in Sodium Chloride 0.9% 100 ML IVPB SCH ×2 (01:37→13:30)
[2021-08-07 04:00] LABS: #Lymphocytes 0.3 thou/uL (1.20-3.40); #Monocytes 0.3 thou/uL (0.11-0.59); #Neutrophils 7.8 thou/uL (1.40-6.50); %Eosinophils 0.1 % (0.0-10.0); %Monocytes 3.3 % (0.0-10.0); %Neutrophils 92.6 % (42.0-75.0); Hemoglobin 8.1 g/dL (12.0-16.0); Mean Corpuscular HGB CONC 32.8 g/dL (32.0-36.0); Mean Corpuscular Hemoglobin 29.3 pg (27.0-31.0); Mean Corpuscular Volume 89.4 fL (78.0-98.0); Mean Platelet Volume 8.1 fL (7.4-10.4); Platelet Count 183 thou/uL (130-400); RBC Distribution Width 13.1 % (11.5-14.5); Red Blood Cell (RBC) Count 2.77 mill/uL (4.20-5.40); White Blood Cell (WBC) Count 8.4 thou/uL (4.8-10.8)
[2021-08-07 04:25] LABS: Anion Gap 15 mmol/L (10-20); BUN (Urea Nitrogen) 83 mg/dL (7.0-18.7); Calc. Creatinine Clearance 23 mL/min (70-130); Calcium 7.9 mg/dL (7.8-10.44); Carbon Dioxide 16 mmol/L (22-29); Chloride 109 mmol/L (98-107); Glucose 373 mg/dL (70-105); Potassium 5.7 mmol/L (3.5-5.1); Sodium 134 mmol/L (136-145)
[2021-08-07] MEDS: HumaLOG 300 UNITS/3 ML VIAL SC PRN ×3 (06:24→23:24)
[2021-08-07] MEDS: Ferrous Sulfate 325 MG TAB PO SCH ×2 (09:18→17:53)
[2021-08-07] MEDS: Calcium Acetate 667 MG CAP PO SCH ×3 (09:18→17:53)
[2021-08-07] MEDS: Furosemide 40 MG/4 ML VIAL SLOW IVP SCH ×2 (09:19→23:23)
[2021-08-07] MEDS: Calcitriol 0.25 MCG CAP PO SCH (09:19)
[2021-08-07] MEDS: predniSONE 20 MG TAB PO SCH (09:19)
[2021-08-07] MEDS: cloNIDine 0.1 MG TAB PO SCH ×2 (09:19→23:23)
[2021-08-07] MEDS: Folic Acid 1 MG TAB PO SCH (09:19)
[2021-08-07] MEDS: Carvedilol 25 MG TAB PO SCH ×2 (09:19→23:22)
[2021-08-07] MEDS: medroxyPROGESTERone Acetate 5 MG TAB PO SCH ×2 (09:20→23:23)
[2021-08-07] MEDS: NPH, Human Insulin Isophane 300 UNIT/3 ML VIAL SC SCH ×2 (09:20→23:24)
[2021-08-07] MEDS: hydrALAZINE 25 MG TAB PO SCH ×2 (09:20→17:52)
[2021-08-07] MEDS ORDERED: ceFAZolin 2 GM/Dextrose 50 ML 2 GM in Premix Bag 1 BAG IVPB SCH (10:30)
[2021-08-07 12:51] LABS: Vancomycin, Random 21.5 ug/mL (See Comment)
[2021-08-07] MEDS ORDERED: Sodium Chloride 0.9% 20 ML ONE (14:29)
[2021-08-07] MEDS ORDERED: Heparin 10,000 UNITS/ 10 ML VIAL ONE (14:29)
[2021-08-07] MEDS ORDERED: Xylocaine 1% w/ Epi 1:100K 10 ML VIAL ONE (14:29)
[2021-08-07] MEDS ORDERED: Bupivacaine PF 0.5% 30 ML VIAL ONE (14:29)
[2021-08-07] MEDS ORDERED: Sodium Chloride 0.9% 10 ML ONE (14:29)
[2021-08-07] MEDS ORDERED: Fentanyl 100 MCG/2 ML VIAL ONE (14:36)
[2021-08-07] MEDS ORDERED: ceFAZolin 2 GM/Dextrose 50 ML IVPB ONE (14:40)
[2021-08-07] MEDS ORDERED: Ondansetron HCl/PF 4 MG/2 ML Vial IVP PRN (14:59)
[2021-08-07] MEDS ORDERED: Promethazine HCl 25 MG/ML VIAL IVPB PRN (14:59)
[2021-08-07] MEDS ORDERED: Promethazine HCl 25 MG/ML VIAL IM PRN (14:59)
[2021-08-07] MEDS: Gabapentin 300 MG CAP PO SCH (23:22)
[2021-08-08] MEDS: Rosuvastatin 20 MG TAB PO SCH ×2 (00:06→19:54)
[2021-08-08] MEDS: hydrALAZINE 25 MG TAB PO SCH ×4 (00:09→19:53)
[2021-08-08] MEDS: Meropenem 500 MG in Sodium Chloride 0.9% 100 ML IVPB SCH ×2 (00:10→12:23)
[2021-08-08 00:44] LABS: HBSAg Index 0.25 S/CO (0-0.99); Hep B Surf Ag Non-Reactive S/CO (NonReactive)
[2021-08-08] MEDS: Albuterol Sulfate 2.5 mg/3 ml Neb NEB SCH ×5 (03:34→21:46)
[2021-08-08] MEDS: HumaLOG 300 UNITS/3 ML VIAL SC PRN ×3 (06:55→17:05)
[2021-08-08] MEDS ORDERED: Heparin 10,000 UNITS/ 10 ML VIAL ONE (09:09)
[2021-08-08] MEDS ORDERED: predniSONE 20 MG TAB PO SCH (09:20)
[2021-08-08] MEDS: Ferrous Sulfate 325 MG TAB PO SCH ×2 (09:37→15:43)
[2021-08-08] MEDS: cloNIDine 0.1 MG TAB PO SCH ×2 (09:38→19:53)
[2021-08-08] MEDS: medroxyPROGESTERone Acetate 5 MG TAB PO SCH ×2 (09:38→19:51)
[2021-08-08] MEDS: Carvedilol 25 MG TAB PO SCH ×2 (09:38→19:53)
[2021-08-08] MEDS: Folic Acid 1 MG TAB PO SCH (09:38)
[2021-08-08] MEDS: Calcium Acetate 667 MG CAP PO SCH ×3 (09:38→15:43)
[2021-08-08] MEDS: Calcitriol 0.25 MCG CAP PO SCH (09:38)
[2021-08-08] MEDS: NPH, Human Insulin Isophane 300 UNIT/3 ML VIAL SC SCH ×2 (09:39→19:55)
[2021-08-08 10:45] LABS: Anion Gap 13 mmol/L (10-20); BUN (Urea Nitrogen) 89 mg/dL (7.0-18.7); Calc. Creatinine Clearance 21 mL/min (70-130); Calcium 7.7 mg/dL (7.8-10.44); Carbon Dioxide 20 mmol/L (22-29); Chloride 107 mmol/L (98-107); Glucose 354 mg/dL (70-105); Potassium 5.6 mmol/L (3.5-5.1); Sodium 134 mmol/L (136-145)
[2021-08-08] MEDS: predniSONE 20 MG TAB PO SCH (10:53)
[2021-08-08] MEDS ORDERED: Labetalol HCl 100 MG/20 ML VIAL SLOW IVP PRN (11:47)
[2021-08-08] MEDS: Bisacodyl 5 MG TAB PO PRN (15:43)
[2021-08-08] MEDS ORDERED: ceFAZolin 2 GM/Dextrose 50 ML 2 GM in Premix Bag 1 BAG IVPB SCH (17:45)
[2021-08-08] MEDS: Gabapentin 300 MG CAP PO SCH (19:52)
[2021-08-09] MEDS: Meropenem 500 MG in Sodium Chloride 0.9% 100 ML IVPB SCH ×2 (00:40→14:51)
[2021-08-09] MEDS: Albuterol Sulfate 2.5 mg/3 ml Neb NEB SCH ×5 (00:40→17:36)
[2021-08-09] MEDS ORDERED: Bupivacaine PF 0.5% 30 ML VIAL ONE ×2 (06:48→09:54)
[2021-08-09] MEDS ORDERED: Xylocaine 1% w/ Epi 1:100K 10 ML VIAL ONE ×2 (06:48→09:54)
[2021-08-09] MEDS ORDERED: Protamine Sulfate 50 MG/5 ML VIAL ONE ×2 (06:48→09:54)
[2021-08-09] MEDS ORDERED: Heparin 5,000 UNITS/ML VIAL ONE ×2 (06:48→09:54)
[2021-08-09 07:14] LABS: #Basophils 0.1 thou/uL (0.0-0.2); #Eosinphils 0.1 thou/uL (0.0-0.7); #Lymphocytes 0.8 thou/uL (1.20-3.40); #Monocytes 0.6 thou/uL (0.11-0.59); %Basophils 0.9 % (0.0-1.0); %Eosinophils 0.8 % (0.0-10.0); %Lymphocytes 10.7 % (21.0-51.0); %Monocytes 8.3 % (0.0-10.0); %Neutrophils 79.2 % (42.0-75.0); Hemoglobin 7.8 g/dL (12.0-16.0); Mean Corpuscular HGB CONC 33.6 g/dL (32.0-36.0); Mean Corpuscular Hemoglobin 29.6 pg (27.0-31.0); Mean Corpuscular Volume 88.1 fL (78.0-98.0); Mean Platelet Volume 7.7 fL (7.4-10.4); Platelet Count 173 thou/uL (130-400); Red Blood Cell (RBC) Count 2.63 mill/uL (4.20-5.40); White Blood Cell (WBC) Count 7.6 thou/uL (4.8-10.8)
[2021-08-09 07:36] LABS: Anion Gap 12 mmol/L (10-20); BUN (Urea Nitrogen) 80 mg/dL (7.0-18.7); Calc. Creatinine Clearance 22 mL/min (70-130); Calcium 7.5 mg/dL (7.8-10.44); Carbon Dioxide 20 mmol/L (22-29); Chloride 106 mmol/L (98-107); Glucose 106 mg/dL (70-105); Sodium 133 mmol/L (136-145)
[2021-08-09] MEDS ORDERED: EPINEPHrine 1 MG/ML AMP ONE (08:05)
[2021-08-09] MEDS: Carvedilol 25 MG TAB PO SCH ×2 (08:06→21:39)
[2021-08-09] MEDS: Folic Acid 1 MG TAB PO SCH (09:00)
[2021-08-09] MEDS: Ferrous Sulfate 325 MG TAB PO SCH ×2 (09:00→17:20)
[2021-08-09] MEDS: cloNIDine 0.1 MG TAB PO SCH ×2 (09:00→21:39)
[2021-08-09] MEDS: medroxyPROGESTERone Acetate 5 MG TAB PO SCH ×2 (09:00→21:56)
[2021-08-09] MEDS: Calcium Acetate 667 MG CAP PO SCH ×3 (09:00→17:20)
[2021-08-09] MEDS ORDERED: Heparin 10,000 UNITS/ 10 ML VIAL ONE (09:00)
[2021-08-09] MEDS: Calcitriol 0.25 MCG CAP PO SCH (09:00)
[2021-08-09] MEDS: hydrALAZINE 25 MG TAB PO SCH ×3 (09:00→21:38)
[2021-08-09] MEDS ORDERED: Fentanyl 100 MCG/2 ML VIAL ONE (09:19)
[2021-08-09] MEDS ORDERED: Dexmedetomidine 200 MCG/2 ML VIAL ONE (09:20)
[2021-08-09] MEDS ORDERED: Propofol 500 MG/50 ML VIAL ONE (10:07)
[2021-08-09 11:50] LABS: SARS-CoV-2 PCR by NAA DETECTED (NotDetected)
[2021-08-09] MEDS: NPH, Human Insulin Isophane 300 UNIT/3 ML VIAL SC SCH ×2 (12:34→21:50)
[2021-08-09] MEDS: hydrALAZINE 20 MG/ML VIAL SLOW IVP PRN (15:12)
[2021-08-09] MEDS: EPOETIN ALFA-EPBX (ESRD) 4,000 UNIT/ML VIAL SC SCH (17:21)
[2021-08-09] MEDS: Albuterol 200 PUFF (6.7GM INHALER) INH SCH ×2 (18:01→21:50)
[2021-08-09] MEDS ORDERED: Dexamethasone 4 mg/ml Vial SLOW IVP SCH (18:30)
[2021-08-09] MEDS: Gabapentin 300 MG CAP PO SCH (21:38)
[2021-08-09] MEDS: Rosuvastatin 20 MG TAB PO SCH (21:40)
[2021-08-10] MEDS: Meropenem 500 MG in Sodium Chloride 0.9% 100 ML IVPB SCH ×2 (00:01→12:31)
[2021-08-10] MEDS: Acetaminophen 325 MG TAB PO PRN (00:20)
[2021-08-10] MEDS: hydrALAZINE 20 MG/ML VIAL SLOW IVP PRN ×2 (00:21→18:00)
[2021-08-10] MEDS: Benzonatate 100 MG CAP PO PRN (00:21)
[2021-08-10] MEDS: Albuterol 200 PUFF (6.7GM INHALER) INH SCH ×6 (03:28→22:13)
[2021-08-10] MEDS: HumaLOG 300 UNITS/3 ML VIAL SC PRN ×3 (06:25→18:04)
[2021-08-10 08:00] LABS: #Lymphocytes 0.2 thou/uL (1.20-3.40); #Monocytes 0.2 thou/uL (0.11-0.59); #Neutrophils 2.5 thou/uL (1.40-6.50); %Basophils 1.6 % (0.0-1.0); %Eosinophils 0.1 % (0.0-10.0); %Lymphocytes 6.1 % (21.0-51.0); %Monocytes 7.2 % (0.0-10.0); Hemoglobin 7.4 g/dL (12.0-16.0); Mean Corpuscular HGB CONC 33.1 g/dL (32.0-36.0); Mean Corpuscular Hemoglobin 29.4 pg (27.0-31.0); Mean Corpuscular Volume 88.7 fL (78.0-98.0); Mean Platelet Volume 8.2 fL (7.4-10.4); Platelet Count 140 thou/uL (130-400); RBC Distribution Width 12.8 % (11.5-14.5); Red Blood Cell (RBC) Count 2.52 mill/uL (4.20-5.40)
[2021-08-10 08:13] LABS: Anion Gap 15 mmol/L (10-20); BUN (Urea Nitrogen) 60 mg/dL (7.0-18.7); Calc. Creatinine Clearance 23 mL/min (70-130); Calcium 7.3 mg/dL (7.8-10.44); Carbon Dioxide 23 mmol/L (22-29); Chloride 103 mmol/L (98-107); Glucose 292 mg/dL (70-105); Potassium 4.9 mmol/L (3.5-5.1); Sodium 136 mmol/L (136-145)
[2021-08-10] MEDS: Carvedilol 25 MG TAB PO SCH ×2 (08:46→22:11)
[2021-08-10] MEDS: Ferrous Sulfate 325 MG TAB PO SCH ×2 (08:46→18:06)
[2021-08-10] MEDS: Calcitriol 0.25 MCG CAP PO SCH (08:46)
[2021-08-10] MEDS: hydrALAZINE 25 MG TAB PO SCH ×3 (08:46→22:12)
[2021-08-10] MEDS: cloNIDine 0.1 MG TAB PO SCH ×2 (08:46→22:11)
[2021-08-10] MEDS: medroxyPROGESTERone Acetate 5 MG TAB PO SCH ×2 (08:46→22:10)
[2021-08-10] MEDS: Calcium Acetate 667 MG CAP PO SCH ×3 (08:46→18:06)
[2021-08-10] MEDS: Dexamethasone 4 mg/ml Vial SLOW IVP SCH (08:47)
[2021-08-10] MEDS: Folic Acid 1 MG TAB PO SCH (08:47)
[2021-08-10] MEDS: NPH, Human Insulin Isophane 300 UNIT/3 ML VIAL SC SCH ×2 (09:06→22:13)
[2021-08-10] MEDS: Gabapentin 300 MG CAP PO SCH (22:10)
[2021-08-10] MEDS: Rosuvastatin 20 MG TAB PO SCH (22:11)
[2021-08-11] MEDS: Meropenem 500 MG in Sodium Chloride 0.9% 100 ML IVPB SCH ×2 (01:34→12:06)
[2021-08-11] MEDS: Albuterol 200 PUFF (6.7GM INHALER) INH SCH ×6 (01:34→21:10)
[2021-08-11] MEDS: hydrALAZINE 20 MG/ML VIAL SLOW IVP PRN (06:31)
[2021-08-11] MEDS: HumaLOG 300 UNITS/3 ML VIAL SC PRN ×4 (06:32→21:10)
[2021-08-11] MEDS: Folic Acid 1 MG TAB PO SCH (08:03)
[2021-08-11] MEDS: Calcitriol 0.25 MCG CAP PO SCH (08:03)
[2021-08-11] MEDS: Ferrous Sulfate 325 MG TAB PO SCH ×2 (08:03→17:24)
[2021-08-11] MEDS: hydrALAZINE 25 MG TAB PO SCH ×3 (08:03→21:10)
[2021-08-11] MEDS: Carvedilol 25 MG TAB PO SCH ×2 (08:04→21:10)
[2021-08-11] MEDS: cloNIDine 0.1 MG TAB PO SCH ×2 (08:04→21:10)
[2021-08-11] MEDS: Calcium Acetate 667 MG CAP PO SCH ×3 (08:04→17:25)
[2021-08-11] MEDS: Dexamethasone 4 mg/ml Vial SLOW IVP SCH (08:04)
[2021-08-11] MEDS: medroxyPROGESTERone Acetate 5 MG TAB PO SCH ×2 (08:05→21:20)
[2021-08-11] MEDS: NPH, Human Insulin Isophane 300 UNIT/3 ML VIAL SC SCH ×2 (08:11→21:10)
[2021-08-11] MEDS: Acetaminophen 325 MG TAB PO PRN (14:39)
[2021-08-11] MEDS ORDERED: Amlodipine 5 MG TAB PO SCH (16:00)
[2021-08-11] MEDS: Amlodipine 5 MG TAB PO SCH (17:24)
[2021-08-11 18:00] LABS: SARS-CoV-2 IgG Spike Ab Interp Reactive (NonReactive); SARS-CoV-2 IgG Spike Conc/Indx 61.1 AU/mL (0.00-50.0)
[2021-08-11] MEDS: Gabapentin 300 MG CAP PO SCH (21:10)
[2021-08-11] MEDS: Benzonatate 100 MG CAP PO PRN (21:13)
[2021-08-11] MEDS: Rosuvastatin 20 MG TAB PO SCH (21:20)
[2021-08-12] MEDS: hydrALAZINE 20 MG/ML VIAL SLOW IVP PRN ×4 (00:17→18:03)
[2021-08-12 00:26] LABS: SARS-CoV-2 PCR by NAA DETECTED (NotDetected)
[2021-08-12] MEDS: Albuterol 200 PUFF (6.7GM INHALER) INH SCH ×6 (02:30→23:20)
[2021-08-12] MEDS: HumaLOG 300 UNITS/3 ML VIAL SC PRN ×3 (05:42→20:53)
[2021-08-12] MEDS: Ferrous Sulfate 325 MG TAB PO SCH ×2 (08:28→17:09)
[2021-08-12] MEDS: medroxyPROGESTERone Acetate 5 MG TAB PO SCH ×2 (08:28→20:51)
[2021-08-12] MEDS: Folic Acid 1 MG TAB PO SCH (08:28)
[2021-08-12] MEDS: hydrALAZINE 25 MG TAB PO SCH ×3 (08:29→20:50)
[2021-08-12] MEDS: cloNIDine 0.1 MG TAB PO SCH ×2 (08:29→20:50)
[2021-08-12] MEDS: Carvedilol 25 MG TAB PO SCH ×2 (08:29→20:51)
[2021-08-12] MEDS: Calcitriol 0.25 MCG CAP PO SCH (08:29)
[2021-08-12] MEDS: Amlodipine 5 MG TAB PO SCH (08:29)
[2021-08-12] MEDS: Calcium Acetate 667 MG CAP PO SCH ×3 (08:30→17:08)
[2021-08-12] MEDS: Dexamethasone 4 mg/ml Vial SLOW IVP SCH (08:30)
[2021-08-12] MEDS: NPH, Human Insulin Isophane 300 UNIT/3 ML VIAL SC SCH ×2 (08:31→20:52)
[2021-08-12] MEDS: Gabapentin 300 MG CAP PO SCH (20:49)
[2021-08-12] MEDS: Rosuvastatin 20 MG TAB PO SCH (20:50)
[2021-08-13] MEDS: hydrALAZINE 20 MG/ML VIAL SLOW IVP PRN (00:48)
[2021-08-13] MEDS: Albuterol 200 PUFF (6.7GM INHALER) INH SCH ×6 (02:57→22:49)
[2021-08-13] MEDS: HumaLOG 300 UNITS/3 ML VIAL SC PRN ×4 (05:16→20:45)
[2021-08-13 05:38] LABS: #Lymphocytes 0.5 thou/uL (1.20-3.40); #Monocytes 0.5 thou/uL (0.11-0.59); #Neutrophils 3.6 thou/uL (1.40-6.50); %Eosinophils 0.1 % (0.0-10.0); %Lymphocytes 11.3 % (21.0-51.0); %Monocytes 10.6 % (0.0-10.0); %Neutrophils 78.1 % (42.0-75.0); Hemoglobin 7.4 g/dL (12.0-16.0); Mean Corpuscular HGB CONC 33.7 g/dL (32.0-36.0); Mean Corpuscular Hemoglobin 29.5 pg (27.0-31.0); Mean Corpuscular Volume 87.4 fL (78.0-98.0); Mean Platelet Volume 7.7 fL (7.4-10.4); Platelet Count 141 thou/uL (130-400); RBC Distribution Width 12.5 % (11.5-14.5); White Blood Cell (WBC) Count 4.6 thou/uL (4.8-10.8)
[2021-08-13 06:07] LABS: Anion Gap 10 mmol/L (10-20); BUN (Urea Nitrogen) 45 mg/dL (7.0-18.7); Calc. Creatinine Clearance 28 mL/min (70-130); Calcium 7.2 mg/dL (7.8-10.44); Carbon Dioxide 29 mmol/L (22-29); Chloride 100 mmol/L (98-107); Glucose 240 mg/dL (70-105); Potassium 4.2 mmol/L (3.5-5.1); Sodium 135 mmol/L (136-145)
[2021-08-13] MEDS: Dexamethasone 4 mg/ml Vial SLOW IVP SCH (08:48)
[2021-08-13] MEDS: medroxyPROGESTERone Acetate 5 MG TAB PO SCH ×2 (08:49→20:36)
[2021-08-13] MEDS: Calcitriol 0.25 MCG CAP PO SCH (08:49)
[2021-08-13] MEDS: Folic Acid 1 MG TAB PO SCH (08:49)
[2021-08-13] MEDS: Calcium Acetate 667 MG CAP PO SCH ×3 (08:49→16:32)
[2021-08-13] MEDS: hydrALAZINE 25 MG TAB PO SCH ×3 (08:50→20:35)
[2021-08-13] MEDS: cloNIDine 0.1 MG TAB PO SCH ×3 (08:50→20:35)
[2021-08-13] MEDS: Carvedilol 25 MG TAB PO SCH ×2 (08:51→20:35)
[2021-08-13] MEDS: Ferrous Sulfate 325 MG TAB PO SCH ×2 (08:51→16:32)
[2021-08-13] MEDS: NPH, Human Insulin Isophane 300 UNIT/3 ML VIAL SC SCH ×2 (08:57→20:36)
[2021-08-13] MEDS ORDERED: Amlodipine 10 MG TAB PO SCH (09:00)
[2021-08-13] MEDS: Benzonatate 100 MG CAP PO PRN (12:57)
[2021-08-13] MEDS: Gabapentin 300 MG CAP PO SCH (20:35)
[2021-08-13] MEDS: Rosuvastatin 20 MG TAB PO SCH (20:36)
[2021-08-14] MEDS: HumaLOG 300 UNITS/3 ML VIAL SC PRN ×3 (03:13→17:38)
[2021-08-14] MEDS: hydrALAZINE 20 MG/ML VIAL SLOW IVP PRN (03:14)
[2021-08-14] MEDS: Albuterol 200 PUFF (6.7GM INHALER) INH SCH ×6 (03:30→22:44)
[2021-08-14] MEDS ORDERED: Lantus 1000 UNITS/10 ML VIAL SC SCH (07:16)
[2021-08-14] MEDS: Calcium Acetate 667 MG CAP PO SCH ×3 (08:00→15:10)
[2021-08-14] MEDS: Ferrous Sulfate 325 MG TAB PO SCH ×2 (08:07→17:00)
[2021-08-14] MEDS: hydrALAZINE 25 MG TAB PO SCH ×3 (09:06→20:20)
[2021-08-14] MEDS: Carvedilol 25 MG TAB PO SCH ×2 (09:07→20:19)
[2021-08-14] MEDS: Calcitriol 0.25 MCG CAP PO SCH (09:07)
[2021-08-14] MEDS: Folic Acid 1 MG TAB PO SCH (09:07)
[2021-08-14] MEDS: cloNIDine 0.1 MG TAB PO SCH ×3 (09:08→20:19)
[2021-08-14] MEDS: medroxyPROGESTERone Acetate 5 MG TAB PO SCH ×2 (09:09→20:20)
[2021-08-14] MEDS: NPH, Human Insulin Isophane 300 UNIT/3 ML VIAL SC SCH ×2 (09:10→20:20)
[2021-08-14] MEDS: Amlodipine 10 MG TAB PO SCH (20:19)
[2021-08-14] MEDS: Gabapentin 300 MG CAP PO SCH (20:20)
[2021-08-14] MEDS: Rosuvastatin 20 MG TAB PO SCH (20:20)
[2021-08-15] MEDS: Albuterol 200 PUFF (6.7GM INHALER) INH SCH ×5 (05:20→20:34)
[2021-08-15] MEDS: Carvedilol 25 MG TAB PO SCH ×2 (08:06→20:35)
[2021-08-15] MEDS: hydrALAZINE 25 MG TAB PO SCH ×3 (08:06→20:35)
[2021-08-15] MEDS: cloNIDine 0.1 MG TAB PO SCH ×3 (08:07→20:35)
[2021-08-15] MEDS: Calcium Acetate 667 MG CAP PO SCH ×3 (08:07→18:35)
[2021-08-15] MEDS: Ferrous Sulfate 325 MG TAB PO SCH ×2 (08:07→17:34)
[2021-08-15] MEDS: Folic Acid 1 MG TAB PO SCH (08:09)
[2021-08-15] MEDS: Calcitriol 0.25 MCG CAP PO SCH (08:09)
[2021-08-15] MEDS: NPH, Human Insulin Isophane 300 UNIT/3 ML VIAL SC SCH ×2 (08:10→20:35)
[2021-08-15] MEDS ORDERED: Heparin 10,000 UNITS/ 10 ML VIAL ONE (11:10)
[2021-08-15 15:11] LABS: Hemoglobin 6.3 g/dL (12.0-16.0); Mean Corpuscular HGB CONC 32.9 g/dL (32.0-36.0); Mean Corpuscular Hemoglobin 28.9 pg (27.0-31.0); Mean Corpuscular Volume 87.8 fL (78.0-98.0); Mean Platelet Volume 7.9 fL (7.4-10.4); Platelet Count 115 thou/uL (130-400); RBC Distribution Width 12.4 % (11.5-14.5); Red Blood Cell (RBC) Count 2.17 mill/uL (4.20-5.40); White Blood Cell (WBC) Count 4.5 thou/uL (4.8-10.8)
[2021-08-15 15:12] LABS: Band 3 % (5-11); Lymphocytes 26 % (21-51); MDiff Complete? YES; Monocytes 4 % (0-10); Neutrophil 65 % (42-75); Ovalocytes SLIGHT = 2-5 cells (100X) (0-1/hpf); Platelet Morphology Comment Appears Decreased; Polychromasia SLIGHT = 2-3 cells (100X) (0-2/hpf); Schistocytes SLIGHT = 2-5 cells (100X) (0-1/hpf)
[2021-08-15] MEDS: Amlodipine 10 MG TAB PO SCH (20:34)
[2021-08-15] MEDS: Gabapentin 300 MG CAP PO SCH (20:35)
[2021-08-15] MEDS: Rosuvastatin 20 MG TAB PO SCH (20:36)
[2021-08-16] MEDS: Albuterol 200 PUFF (6.7GM INHALER) INH SCH ×7 (00:08→22:45)
[2021-08-16] MEDS: Calcitriol 0.25 MCG CAP PO SCH (08:33)
[2021-08-16] MEDS: hydrALAZINE 25 MG TAB PO SCH ×3 (08:34→21:04)
[2021-08-16] MEDS: Calcium Acetate 667 MG CAP PO SCH ×3 (08:34→17:00)
[2021-08-16] MEDS: Ferrous Sulfate 325 MG TAB PO SCH ×2 (08:34→17:00)
[2021-08-16] MEDS: cloNIDine 0.1 MG TAB PO SCH ×3 (08:34→21:04)
[2021-08-16] MEDS: Carvedilol 25 MG TAB PO SCH ×2 (08:34→21:04)
[2021-08-16] MEDS: Folic Acid 1 MG TAB PO SCH (08:35)
[2021-08-16] MEDS: NPH, Human Insulin Isophane 300 UNIT/3 ML VIAL SC SCH ×2 (08:41→21:05)
[2021-08-16] MEDS ORDERED: EPOETIN ALFA-EPBX (ESRD) 10,000 UNIT/ML VIAL SC SCH (15:30)
[2021-08-16] MEDS: EPOETIN ALFA-EPBX (ESRD) 4,000 UNIT/ML VIAL SC SCH (16:20)
[2021-08-16] MEDS: Gabapentin 300 MG CAP PO SCH (21:02)
[2021-08-16] MEDS: Rosuvastatin 20 MG TAB PO SCH (21:04)
[2021-08-16] MEDS: Amlodipine 10 MG TAB PO SCH (21:04)
[2021-08-17] MEDS: Albuterol 200 PUFF (6.7GM INHALER) INH SCH ×6 (04:33→21:42)
[2021-08-17] MEDS: Calcium Acetate 667 MG CAP PO SCH ×3 (08:00→21:41)
[2021-08-17] MEDS: Ferrous Sulfate 325 MG TAB PO SCH ×2 (08:21→21:40)
[2021-08-17] MEDS: cloNIDine 0.1 MG TAB PO SCH ×3 (09:21→21:40)
[2021-08-17] MEDS: hydrALAZINE 25 MG TAB PO SCH ×3 (09:21→21:40)
[2021-08-17] MEDS: Calcitriol 0.25 MCG CAP PO SCH (09:22)
[2021-08-17] MEDS: Carvedilol 25 MG TAB PO SCH ×2 (09:22→21:40)
[2021-08-17] MEDS: NPH, Human Insulin Isophane 300 UNIT/3 ML VIAL SC SCH ×2 (09:23→21:41)
[2021-08-17] MEDS: Folic Acid 1 MG TAB PO SCH (09:23)
[2021-08-17] MEDS ORDERED: Heparin 10,000 UNITS/ 10 ML VIAL ONE (09:45)
[2021-08-17] MEDS: HumaLOG 300 UNITS/3 ML VIAL SC PRN (13:00)
[2021-08-17 15:51] LABS: #Eosinphils 0.1 thou/uL (0.0-0.7); #Lymphocytes 0.6 thou/uL (1.20-3.40); #Monocytes 0.3 thou/uL (0.11-0.59); #Neutrophils 3.2 thou/uL (1.40-6.50); %Eosinophils 2.7 % (0.0-10.0); %Lymphocytes 14.8 % (21.0-51.0); %Monocytes 6.3 % (0.0-10.0); %Neutrophils 76.2 % (42.0-75.0); Hemoglobin 7.8 g/dL (12.0-16.0); Mean Corpuscular HGB CONC 32.5 g/dL (32.0-36.0); Mean Corpuscular Hemoglobin 28.7 pg (27.0-31.0); Mean Corpuscular Volume 88.5 fL (78.0-98.0); Mean Platelet Volume 8.3 fL (7.4-10.4); Platelet Count 96 thou/uL (130-400); RBC Distribution Width 12.6 % (11.5-14.5); Red Blood Cell (RBC) Count 2.71 mill/uL (4.20-5.40); White Blood Cell (WBC) Count 4.3 thou/uL (4.8-10.8)
[2021-08-17 16:08] LABS: Anion Gap 12 mmol/L (10-20); BUN (Urea Nitrogen) 45 mg/dL (7.0-18.7); Calc. Creatinine Clearance 24 mL/min (70-130); Calcium 6.9 mg/dL (7.8-10.44); Carbon Dioxide 27 mmol/L (22-29); Chloride 98 mmol/L (98-107); Glucose 200 mg/dL (70-105); Potassium 3.8 mmol/L (3.5-5.1); Sodium 133 mmol/L (136-145)
[2021-08-17] MEDS: Gabapentin 300 MG CAP PO SCH (21:40)
[2021-08-17] MEDS: Amlodipine 10 MG TAB PO SCH (21:40)
[2021-08-17] MEDS: Rosuvastatin 20 MG TAB PO SCH (21:41)
[2021-08-18] MEDS: Albuterol 200 PUFF (6.7GM INHALER) INH SCH ×5 (03:40→22:55)
[2021-08-18] MEDS: Calcium Acetate 667 MG CAP PO SCH ×3 (08:00→17:43)
[2021-08-18] MEDS: Ferrous Sulfate 325 MG TAB PO SCH ×2 (08:22→17:43)
[2021-08-18] MEDS: NPH, Human Insulin Isophane 300 UNIT/3 ML VIAL SC SCH ×2 (09:00→21:34)
[2021-08-18] MEDS: Carvedilol 25 MG TAB PO SCH ×2 (09:21→21:08)
[2021-08-18] MEDS: cloNIDine 0.1 MG TAB PO SCH ×3 (09:21→21:09)
[2021-08-18] MEDS: hydrALAZINE 25 MG TAB PO SCH ×3 (09:21→21:07)
[2021-08-18] MEDS: Folic Acid 1 MG TAB PO SCH (09:21)
[2021-08-18] MEDS: Calcitriol 0.25 MCG CAP PO SCH (09:22)
[2021-08-18] MEDS: Rosuvastatin 20 MG TAB PO SCH (21:08)
[2021-08-18] MEDS: Gabapentin 300 MG CAP PO SCH (21:08)
[2021-08-18] MEDS: Amlodipine 10 MG TAB PO SCH (21:08)
[2021-08-19] MEDS: Albuterol 200 PUFF (6.7GM INHALER) INH SCH ×6 (04:31→23:01)
[2021-08-19] MEDS: Ferrous Sulfate 325 MG TAB PO SCH ×2 (09:04→16:25)
[2021-08-19] MEDS: Calcitriol 0.25 MCG CAP PO SCH (09:04)
[2021-08-19] MEDS: Calcium Acetate 667 MG CAP PO SCH ×3 (09:04→16:25)
[2021-08-19] MEDS: cloNIDine 0.1 MG TAB PO SCH ×3 (09:05→23:01)
[2021-08-19] MEDS: Carvedilol 25 MG TAB PO SCH ×2 (09:05→23:01)
[2021-08-19] MEDS: hydrALAZINE 25 MG TAB PO SCH ×3 (09:05→23:00)
[2021-08-19] MEDS: Folic Acid 1 MG TAB PO SCH (09:05)
[2021-08-19] MEDS ORDERED: Heparin 10,000 UNITS/ 10 ML VIAL ONE (09:24)
[2021-08-19] MEDS ORDERED: Loratadine 10 MG TAB PO SCH ×2 (11:50→12:15)
[2021-08-19] MEDS: NPH, Human Insulin Isophane 300 UNIT/3 ML VIAL SC SCH (11:51)
[2021-08-19] MEDS: HumaLOG 300 UNITS/3 ML VIAL SC PRN (16:57)
[2021-08-19 17:19] LABS: #Eosinphils 0.2 thou/uL (0.0-0.7); #Lymphocytes 0.7 thou/uL (1.20-3.40); #Monocytes 0.4 thou/uL (0.11-0.59); #Neutrophils 3.3 thou/uL (1.40-6.50); %Basophils 0.4 % (0.0-1.0); %Eosinophils 4.5 % (0.0-10.0); %Lymphocytes 15.1 % (21.0-51.0); %Monocytes 8.5 % (0.0-10.0); %Neutrophils 71.5 % (42.0-75.0); Hemoglobin 7.4 g/dL (12.0-16.0); Mean Corpuscular HGB CONC 33.2 g/dL (32.0-36.0); Mean Corpuscular Hemoglobin 29.9 pg (27.0-31.0); Mean Corpuscular Volume 90.1 fL (78.0-98.0); Mean Platelet Volume 9.2 fL (7.4-10.4); Platelet Count 94 thou/uL (130-400); RBC Distribution Width 12.4 % (11.5-14.5); Red Blood Cell (RBC) Count 2.48 mill/uL (4.20-5.40); White Blood Cell (WBC) Count 4.7 thou/uL (4.8-10.8)
[2021-08-19 17:39] LABS: Anion Gap 18 mmol/L (10-20); BUN (Urea Nitrogen) 47 mg/dL (7.0-18.7); Calc. Creatinine Clearance 20 mL/min (70-130); Calcium 7.1 mg/dL (7.8-10.44); Carbon Dioxide 22 mmol/L (22-29); Chloride 97 mmol/L (98-107); Glucose 222 mg/dL (70-105); Potassium 4.5 mmol/L (3.5-5.1); Sodium 132 mmol/L (136-145)
[2021-08-19 18:07] LABS: SARS-CoV-2 NAA Rapid Test DETECTED (NotDetected)
[2021-08-19] MEDS: Acetaminophen 325 MG TAB PO PRN (22:59)
[2021-08-19] MEDS: Rosuvastatin 20 MG TAB PO SCH (23:00)
[2021-08-19] MEDS: Gabapentin 300 MG CAP PO SCH (23:00)
[2021-08-19] MEDS: Amlodipine 10 MG TAB PO SCH (23:01)
[2021-08-20] MEDS: NPH, Human Insulin Isophane 300 UNIT/3 ML VIAL SC SCH ×3 (00:20→20:49)
[2021-08-20] MEDS: Albuterol 200 PUFF (6.7GM INHALER) INH SCH ×6 (04:34→22:54)
[2021-08-20] MEDS: Acetaminophen 325 MG TAB PO PRN ×2 (05:40→20:47)
[2021-08-20] MEDS: Calcitriol 0.25 MCG CAP PO SCH (08:25)
[2021-08-20] MEDS: cloNIDine 0.1 MG TAB PO SCH ×3 (08:26→20:47)
[2021-08-20] MEDS: hydrALAZINE 25 MG TAB PO SCH ×3 (08:26→20:47)
[2021-08-20] MEDS: Ferrous Sulfate 325 MG TAB PO SCH ×2 (08:26→16:31)
[2021-08-20] MEDS: Loratadine 10 MG TAB PO SCH (08:27)
[2021-08-20] MEDS: Calcium Acetate 667 MG CAP PO SCH ×3 (08:27→16:31)
[2021-08-20] MEDS: Carvedilol 25 MG TAB PO SCH ×2 (08:27→20:47)
[2021-08-20] MEDS: Folic Acid 1 MG TAB PO SCH (08:27)
[2021-08-20] MEDS ORDERED: Fluticasone Propionate Nasal Spray 16 gm Bottle NASAL SCH (12:30)
[2021-08-20] MEDS ORDERED: Amoxicillin/Potassium Clav 875 MG TAB PO SCH (13:00)
[2021-08-20] MEDS: HumaLOG 300 UNITS/3 ML VIAL SC PRN (14:10)
[2021-08-20] MEDS: Amoxicillin/Potassium Clav 875 MG TAB PO SCH (20:46)
[2021-08-20] MEDS: Gabapentin 300 MG CAP PO SCH (20:46)
[2021-08-20] MEDS: Amlodipine 10 MG TAB PO SCH (20:47)
[2021-08-20] MEDS: Rosuvastatin 20 MG TAB PO SCH (20:47)
[2021-08-21] MEDS: Albuterol 200 PUFF (6.7GM INHALER) INH SCH ×6 (01:38→21:59)
[2021-08-21 06:07] LABS: #Eosinphils 0.2 thou/uL (0.0-0.7); #Lymphocytes 0.8 thou/uL (1.20-3.40); #Monocytes 0.5 thou/uL (0.11-0.59); %Basophils 0.3 % (0.0-1.0); %Eosinophils 4.5 % (0.0-10.0); %Lymphocytes 17.1 % (21.0-51.0); %Neutrophils 68.1 % (42.0-75.0); Hemoglobin 7.3 g/dL (12.0-16.0); Mean Corpuscular HGB CONC 32.2 g/dL (32.0-36.0); Mean Corpuscular Hemoglobin 29.1 pg (27.0-31.0); Mean Corpuscular Volume 90.3 fL (78.0-98.0); Mean Platelet Volume 8.2 fL (7.4-10.4); Platelet Count 120 thou/uL (130-400); RBC Distribution Width 12.3 % (11.5-14.5); Red Blood Cell (RBC) Count 2.53 mill/uL (4.20-5.40); White Blood Cell (WBC) Count 4.5 thou/uL (4.8-10.8)
[2021-08-21 06:25] LABS: Anion Gap 15 mmol/L (10-20); BUN (Urea Nitrogen) 38 mg/dL (7.0-18.7); Calc. Creatinine Clearance 22 mL/min (70-130); Calcium 7.4 mg/dL (7.8-10.44); Carbon Dioxide 26 mmol/L (22-29); Chloride 98 mmol/L (98-107); Glucose 105 mg/dL (70-105); Potassium 4.5 mmol/L (3.5-5.1); Sodium 134 mmol/L (136-145)
[2021-08-21] MEDS ORDERED: Heparin 10,000 UNITS/ 10 ML VIAL ONE (08:25)
[2021-08-21] MEDS: Folic Acid 1 MG TAB PO SCH (08:42)
[2021-08-21] MEDS: Carvedilol 25 MG TAB PO SCH ×2 (08:42→21:57)
[2021-08-21] MEDS: Ferrous Sulfate 325 MG TAB PO SCH ×2 (08:42→16:52)
[2021-08-21] MEDS: Loratadine 10 MG TAB PO SCH (08:43)
[2021-08-21] MEDS: cloNIDine 0.1 MG TAB PO SCH ×3 (08:43→21:56)
[2021-08-21] MEDS: hydrALAZINE 25 MG TAB PO SCH ×3 (08:43→21:57)
[2021-08-21] MEDS: Amoxicillin/Potassium Clav 875 MG TAB PO SCH ×2 (08:44→21:57)
[2021-08-21] MEDS: Calcium Acetate 667 MG CAP PO SCH ×3 (08:44→16:52)
[2021-08-21] MEDS: medroxyPROGESTERone Acetate 2.5 MG TAB PO SCH (08:44)
[2021-08-21] MEDS: Calcitriol 0.25 MCG CAP PO SCH (08:44)
[2021-08-21] MEDS: NPH, Human Insulin Isophane 300 UNIT/3 ML VIAL SC SCH ×2 (08:49→21:58)
[2021-08-21] MEDS: Fluticasone Propionate Nasal Spray 16 gm Bottle NASAL SCH (08:50)
[2021-08-21] MEDS ORDERED: Oxymetazoline HCl 0.05% (30 ML BOT) NS PRN (09:00)
[2021-08-21 10:49] LABS: #Eosinphils 0.1 thou/uL (0.0-0.7); #Lymphocytes 0.6 thou/uL (1.20-3.40); #Monocytes 0.4 thou/uL (0.11-0.59); #Neutrophils 3.4 thou/uL (1.40-6.50); %Basophils 0.1 % (0.0-1.0); %Eosinophils 2.4 % (0.0-10.0); %Lymphocytes 13.7 % (21.0-51.0); %Neutrophils 74.8 % (42.0-75.0); Hemoglobin 6.9 g/dL (12.0-16.0); Mean Corpuscular HGB CONC 32.3 g/dL (32.0-36.0); Mean Corpuscular Hemoglobin 29.2 pg (27.0-31.0); Mean Corpuscular Volume 90.3 fL (78.0-98.0); Mean Platelet Volume 8.7 fL (7.4-10.4); Platelet Count 102 thou/uL (130-400); RBC Distribution Width 12.2 % (11.5-14.5); Red Blood Cell (RBC) Count 2.35 mill/uL (4.20-5.40); White Blood Cell (WBC) Count 4.5 thou/uL (4.8-10.8)
[2021-08-21] MEDS ORDERED: Tranexamic Acid 1,000 MG in Sodium Chloride 0.9% 250 ML 250 ML IVPB SCH (12:15)
[2021-08-21] MEDS: HumaLOG 300 UNITS/3 ML VIAL SC PRN ×2 (13:05→16:54)
[2021-08-21 15:59] LABS: Hemoglobin 6.7 g/dL (12.0-16.0); Mean Corpuscular HGB CONC 32.7 g/dL (32.0-36.0); Mean Corpuscular Hemoglobin 29.3 pg (27.0-31.0); Mean Corpuscular Volume 89.6 fL (78.0-98.0); Mean Platelet Volume 8.4 fL (7.4-10.4); Platelet Count 117 thou/uL (130-400); RBC Distribution Width 12.3 % (11.5-14.5); White Blood Cell (WBC) Count 4.5 thou/uL (4.8-10.8)
[2021-08-21] MEDS: Gabapentin 300 MG CAP PO SCH (21:56)
[2021-08-21] MEDS: Rosuvastatin 20 MG TAB PO SCH (21:57)
[2021-08-21] MEDS: Amlodipine 10 MG TAB PO SCH (21:57)
[2021-08-22] MEDS: Albuterol 200 PUFF (6.7GM INHALER) INH SCH ×6 (02:30→20:38)
[2021-08-22] MEDS: HumaLOG 300 UNITS/3 ML VIAL SC PRN ×2 (05:29→17:19)
[2021-08-22] MEDS: Ferrous Sulfate 325 MG TAB PO SCH ×2 (08:25→16:34)
[2021-08-22] MEDS: Calcitriol 0.25 MCG CAP PO SCH (08:25)
[2021-08-22] MEDS: Loratadine 10 MG TAB PO SCH (08:25)
[2021-08-22] MEDS: Amoxicillin/Potassium Clav 875 MG TAB PO SCH ×2 (08:25→20:34)
[2021-08-22] MEDS: hydrALAZINE 25 MG TAB PO SCH ×3 (08:25→20:34)
[2021-08-22] MEDS: cloNIDine 0.1 MG TAB PO SCH ×3 (08:25→20:34)
[2021-08-22] MEDS: Fluticasone Propionate Nasal Spray 16 gm Bottle NASAL SCH (08:26)
[2021-08-22] MEDS: Carvedilol 25 MG TAB PO SCH ×2 (08:26→20:35)
[2021-08-22] MEDS: Folic Acid 1 MG TAB PO SCH (08:26)
[2021-08-22] MEDS: Calcium Acetate 667 MG CAP PO SCH ×3 (08:26→16:34)
[2021-08-22] MEDS: NPH, Human Insulin Isophane 300 UNIT/3 ML VIAL SC SCH ×2 (08:33→20:37)
[2021-08-22] MEDS: medroxyPROGESTERone Acetate 2.5 MG TAB PO SCH (09:18)
[2021-08-22] MEDS ORDERED: Heparin 10,000 UNITS/ 10 ML VIAL ONE (09:24)
[2021-08-22 09:33] LABS: Hemoglobin 8.1 g/dL (12.0-16.0); Mean Corpuscular HGB CONC 32.6 g/dL (32.0-36.0); Mean Corpuscular Volume 89.2 fL (78.0-98.0); Platelet Count 114 thou/uL (130-400); RBC Distribution Width 12.3 % (11.5-14.5); Red Blood Cell (RBC) Count 2.77 mill/uL (4.20-5.40); White Blood Cell (WBC) Count 4.7 thou/uL (4.8-10.8)
[2021-08-22 09:45] LABS: ALT (SGPT) 12 U/L (8-55); AST (SGOT) 16 U/L (5-34); Albumin 2.4 g/dL (3.5-5.0); Alkaline Phosphatase 64 U/L (40-110); Anion Gap 8 mmol/L (10-20); BUN (Urea Nitrogen) 36 mg/dL (7.0-18.7); Bilirubin, Total 0.6 mg/dL (0.2-1.2); Calc. Creatinine Clearance 23 mL/min (70-130); Calcium 7.3 mg/dL (7.8-10.44); Carbon Dioxide 33 mmol/L (22-29); Chloride 100 mmol/L (98-107); Globulin 2.4 g/dL (2.4-3.5); Glucose 196 mg/dL (70-105); Potassium 4.6 mmol/L (3.5-5.1); Protein, Total 4.8 g/dL (6.0-8.3); Sodium 136 mmol/L (136-145)
[2021-08-22] MEDS: Bisacodyl 5 MG TAB PO PRN (10:47)
[2021-08-22] MEDS ORDERED: Polyethylene Glycol 3350 17 GM Packet PO PRN (10:59)
[2021-08-22] MEDS: Gabapentin 300 MG CAP PO SCH (20:34)
[2021-08-22] MEDS: Rosuvastatin 10 MG TAB PO SCH (20:35)
[2021-08-22] MEDS: Amlodipine 10 MG TAB PO SCH (20:35)
[2021-08-23] MEDS: Albuterol 200 PUFF (6.7GM INHALER) INH SCH ×6 (03:35→23:43)
[2021-08-23 05:50] LABS: #Eosinphils 0.1 thou/uL (0.0-0.7); #Lymphocytes 0.7 thou/uL (1.20-3.40); #Monocytes 0.5 thou/uL (0.11-0.59); %Basophils 0.7 % (0.0-1.0); %Eosinophils 2.3 % (0.0-10.0); %Lymphocytes 12.9 % (21.0-51.0); %Monocytes 9.4 % (0.0-10.0); %Neutrophils 74.6 % (42.0-75.0); Hemoglobin 9.1 g/dL (12.0-16.0); Mean Corpuscular HGB CONC 32.8 g/dL (32.0-36.0); Mean Corpuscular Hemoglobin 29.6 pg (27.0-31.0); Mean Corpuscular Volume 90.4 fL (78.0-98.0); Mean Platelet Volume 7.6 fL (7.4-10.4); Platelet Count 124 thou/uL (130-400); RBC Distribution Width 12.4 % (11.5-14.5); Red Blood Cell (RBC) Count 3.06 mill/uL (4.20-5.40); White Blood Cell (WBC) Count 5.4 thou/uL (4.8-10.8)
[2021-08-23 06:39] LABS: Anion Gap 7 mmol/L (10-20); BUN (Urea Nitrogen) 28 mg/dL (7.0-18.7); Calc. Creatinine Clearance 27 mL/min (70-130); Calcium 7.5 mg/dL (7.8-10.44); Carbon Dioxide 34 mmol/L (22-29); Chloride 99 mmol/L (98-107); Glucose 183 mg/dL (70-105); Potassium 4.1 mmol/L (3.5-5.1); Sodium 136 mmol/L (136-145)
[2021-08-23] MEDS: hydrALAZINE 25 MG TAB PO SCH ×3 (08:32→20:23)
[2021-08-23] MEDS: Folic Acid 1 MG TAB PO SCH (08:33)
[2021-08-23] MEDS: cloNIDine 0.1 MG TAB PO SCH ×3 (08:33→20:22)
[2021-08-23] MEDS: Loratadine 10 MG TAB PO SCH (08:33)
[2021-08-23] MEDS: Ferrous Sulfate 325 MG TAB PO SCH ×2 (08:33→16:37)
[2021-08-23] MEDS: Amoxicillin/Potassium Clav 875 MG TAB PO SCH ×2 (08:33→20:22)
[2021-08-23] MEDS: Calcium Acetate 667 MG CAP PO SCH ×3 (08:33→16:36)
[2021-08-23] MEDS: Calcitriol 0.25 MCG CAP PO SCH (08:33)
[2021-08-23] MEDS: Carvedilol 25 MG TAB PO SCH ×2 (08:33→20:22)
[2021-08-23] MEDS: Fluticasone Propionate Nasal Spray 16 gm Bottle NASAL SCH (08:34)
[2021-08-23] MEDS: medroxyPROGESTERone Acetate 2.5 MG TAB PO SCH (08:34)
[2021-08-23] MEDS: NPH, Human Insulin Isophane 300 UNIT/3 ML VIAL SC SCH ×2 (08:35→20:23)
[2021-08-23] MEDS: EPOETIN ALFA-EPBX (ESRD) 4,000 UNIT/ML VIAL SC SCH (13:34)
[2021-08-23] MEDS: HumaLOG 300 UNITS/3 ML VIAL SC PRN ×2 (16:36→20:22)
[2021-08-23] MEDS: Amlodipine 10 MG TAB PO SCH (20:22)
[2021-08-23] MEDS: Gabapentin 300 MG CAP PO SCH (20:22)
[2021-08-23] MEDS: Rosuvastatin 10 MG TAB PO SCH (20:23)
[2021-08-24] MEDS: Albuterol 200 PUFF (6.7GM INHALER) INH SCH ×6 (04:00→23:50)
[2021-08-24] MEDS: HumaLOG 300 UNITS/3 ML VIAL SC PRN (04:39)
[2021-08-24] MEDS: hydrALAZINE 25 MG TAB PO SCH ×3 (08:39→22:00)
[2021-08-24] MEDS: cloNIDine 0.1 MG TAB PO SCH ×3 (08:39→21:59)
[2021-08-24] MEDS: Ferrous Sulfate 325 MG TAB PO SCH ×2 (08:39→17:42)
[2021-08-24] MEDS: Loratadine 10 MG TAB PO SCH (08:40)
[2021-08-24] MEDS: Calcitriol 0.25 MCG CAP PO SCH (08:40)
[2021-08-24] MEDS: Carvedilol 25 MG TAB PO SCH ×2 (08:40→22:00)
[2021-08-24] MEDS: Calcium Acetate 667 MG CAP PO SCH ×3 (08:40→17:42)
[2021-08-24] MEDS: Amoxicillin/Potassium Clav 875 MG TAB PO SCH ×2 (08:40→22:00)
[2021-08-24] MEDS: Folic Acid 1 MG TAB PO SCH (08:40)
[2021-08-24] MEDS: NPH, Human Insulin Isophane 300 UNIT/3 ML VIAL SC SCH ×2 (08:41→22:18)
[2021-08-24] MEDS: Fluticasone Propionate Nasal Spray 16 gm Bottle NASAL SCH (08:41)
[2021-08-24] MEDS: medroxyPROGESTERone Acetate 2.5 MG TAB PO SCH (09:05)
[2021-08-24] MEDS ORDERED: Heparin 10,000 UNITS/ 10 ML VIAL ONE (09:29)
[2021-08-24] MEDS: Amlodipine 10 MG TAB PO SCH (21:59)
[2021-08-24] MEDS: Rosuvastatin 10 MG TAB PO SCH (21:59)
[2021-08-24] MEDS: Gabapentin 300 MG CAP PO SCH (22:02)
[2021-08-25] MEDS: Albuterol 200 PUFF (6.7GM INHALER) INH SCH ×5 (03:00→19:36)
[2021-08-25] MEDS: cloNIDine 0.1 MG TAB PO SCH ×3 (09:02→20:58)
[2021-08-25] MEDS: Amoxicillin/Potassium Clav 875 MG TAB PO SCH ×2 (09:03→20:57)
[2021-08-25] MEDS: Calcitriol 0.25 MCG CAP PO SCH (09:03)
[2021-08-25] MEDS: Carvedilol 25 MG TAB PO SCH ×2 (09:03→20:58)
[2021-08-25] MEDS: hydrALAZINE 25 MG TAB PO SCH ×3 (09:03→20:57)
[2021-08-25] MEDS: Ferrous Sulfate 325 MG TAB PO SCH ×2 (09:04→16:49)
[2021-08-25] MEDS: Folic Acid 1 MG TAB PO SCH (09:04)
[2021-08-25] MEDS: Calcium Acetate 667 MG CAP PO SCH ×3 (09:04→16:50)
[2021-08-25] MEDS: Loratadine 10 MG TAB PO SCH (09:04)
[2021-08-25] MEDS: medroxyPROGESTERone Acetate 2.5 MG TAB PO SCH (09:08)
[2021-08-25] MEDS: NPH, Human Insulin Isophane 300 UNIT/3 ML VIAL SC SCH ×2 (09:15→21:00)
[2021-08-25] MEDS: Fluticasone Propionate Nasal Spray 16 gm Bottle NASAL SCH (09:16)
[2021-08-25] MEDS ORDERED: Dexamethasone 4 MG TAB PO SCH (16:45)
[2021-08-25] MEDS: HumaLOG 300 UNITS/3 ML VIAL SC PRN ×2 (16:51→21:02)
[2021-08-25] MEDS: Amlodipine 10 MG TAB PO SCH (20:58)
[2021-08-25] MEDS: Rosuvastatin 10 MG TAB PO SCH (20:58)
[2021-08-25] MEDS: Gabapentin 300 MG CAP PO SCH (20:58)
[2021-08-26] MEDS: Albuterol 200 PUFF (6.7GM INHALER) INH SCH ×6 (02:36→23:19)
[2021-08-26] MEDS: HumaLOG 300 UNITS/3 ML VIAL SC PRN ×3 (05:20→21:46)
[2021-08-26 05:45] LABS: #Lymphocytes 0.5 thou/uL (1.20-3.40); #Monocytes 0.1 thou/uL (0.11-0.59); #Neutrophils 4.2 thou/uL (1.40-6.50); %Basophils 0.3 % (0.0-1.0); %Lymphocytes 9.4 % (21.0-51.0); %Monocytes 2.7 % (0.0-10.0); %Neutrophils 87.6 % (42.0-75.0); Hemoglobin 8.6 g/dL (12.0-16.0); Mean Corpuscular HGB CONC 32.1 g/dL (32.0-36.0); Mean Corpuscular Hemoglobin 29.3 pg (27.0-31.0); Mean Corpuscular Volume 91.2 fL (78.0-98.0); Mean Platelet Volume 7.1 fL (7.4-10.4); Platelet Count 144 thou/uL (130-400); RBC Distribution Width 12.3 % (11.5-14.5); Red Blood Cell (RBC) Count 2.95 mill/uL (4.20-5.40); White Blood Cell (WBC) Count 4.8 thou/uL (4.8-10.8)
[2021-08-26 06:07] LABS: ALT (SGPT) 14 U/L (8-55); AST (SGOT) 14 U/L (5-34); Albumin 2.3 g/dL (3.5-5.0); Alkaline Phosphatase 73 U/L (40-110); Anion Gap 10 mmol/L (10-20); BUN (Urea Nitrogen) 34 mg/dL (7.0-18.7); Bilirubin, Total 0.5 mg/dL (0.2-1.2); Calc. Creatinine Clearance 26 mL/min (70-130); Calcium 7.5 mg/dL (7.8-10.44); Carbon Dioxide 27 mmol/L (22-29); Chloride 100 mmol/L (98-107); Globulin 2.7 g/dL (2.4-3.5); Glucose 338 mg/dL (70-105); Potassium 4.4 mmol/L (3.5-5.1); Sodium 133 mmol/L (136-145)
[2021-08-26] MEDS ORDERED: Heparin 10,000 UNITS/ 10 ML VIAL ONE (08:32)
[2021-08-26] MEDS: hydrALAZINE 25 MG TAB PO SCH ×3 (08:32→21:47)
[2021-08-26] MEDS: Calcitriol 0.25 MCG CAP PO SCH (08:33)
[2021-08-26] MEDS: Calcium Acetate 667 MG CAP PO SCH ×3 (08:34→18:00)
[2021-08-26] MEDS: Folic Acid 1 MG TAB PO SCH (08:34)
[2021-08-26] MEDS: Dexamethasone 4 MG TAB PO SCH (08:34)
[2021-08-26] MEDS: Ferrous Sulfate 325 MG TAB PO SCH ×2 (08:34→18:00)
[2021-08-26] MEDS: Carvedilol 25 MG TAB PO SCH ×2 (08:35→21:45)
[2021-08-26] MEDS: cloNIDine 0.1 MG TAB PO SCH ×3 (08:35→21:45)
[2021-08-26] MEDS: Amoxicillin/Potassium Clav 875 MG TAB PO SCH ×2 (08:35→21:46)
[2021-08-26] MEDS: Loratadine 10 MG TAB PO SCH (08:35)
[2021-08-26] MEDS: Fluticasone Propionate Nasal Spray 16 gm Bottle NASAL SCH (08:35)
[2021-08-26] MEDS: NPH, Human Insulin Isophane 300 UNIT/3 ML VIAL SC SCH ×2 (08:36→21:46)
[2021-08-26] MEDS: medroxyPROGESTERone Acetate 2.5 MG TAB PO SCH (08:38)
[2021-08-26] MEDS ORDERED: Polyethylene Glycol 3350 17 GM Packet PO SCH (10:15)
[2021-08-26] MEDS ORDERED: Docusate 100 MG CAP PO SCH (10:15)
[2021-08-26] MEDS: Acetaminophen 325 MG TAB PO PRN (21:44)
[2021-08-26] MEDS: Gabapentin 300 MG CAP PO SCH (21:45)
[2021-08-26] MEDS: Amlodipine 10 MG TAB PO SCH (21:45)
[2021-08-26] MEDS: Rosuvastatin 10 MG TAB PO SCH (21:47)
[2021-08-27] MEDS: Albuterol 200 PUFF (6.7GM INHALER) INH SCH ×6 (03:49→22:34)
[2021-08-27] MEDS: HumaLOG 300 UNITS/3 ML VIAL SC PRN ×4 (05:22→20:55)
[2021-08-27] MEDS: Calcitriol 0.25 MCG CAP PO SCH (08:07)
[2021-08-27] MEDS: Carvedilol 25 MG TAB PO SCH ×2 (08:07→20:59)
[2021-08-27] MEDS: Ferrous Sulfate 325 MG TAB PO SCH ×2 (08:07→16:40)
[2021-08-27] MEDS: medroxyPROGESTERone Acetate 2.5 MG TAB PO SCH (08:07)
[2021-08-27] MEDS: Docusate 100 MG CAP PO SCH (08:07)
[2021-08-27] MEDS: cloNIDine 0.1 MG TAB PO SCH ×3 (08:07→20:58)
[2021-08-27] MEDS: Folic Acid 1 MG TAB PO SCH (08:08)
[2021-08-27] MEDS: Amoxicillin/Potassium Clav 875 MG TAB PO SCH (08:08)
[2021-08-27] MEDS: Calcium Acetate 667 MG CAP PO SCH ×3 (08:08→16:40)
[2021-08-27] MEDS: Loratadine 10 MG TAB PO SCH (08:08)
[2021-08-27] MEDS: Dexamethasone 4 MG TAB PO SCH (08:08)
[2021-08-27] MEDS: hydrALAZINE 25 MG TAB PO SCH ×3 (08:08→20:59)
[2021-08-27] MEDS: Polyethylene Glycol 3350 17 GM Packet PO SCH (08:08)
[2021-08-27] MEDS: NPH, Human Insulin Isophane 300 UNIT/3 ML VIAL SC SCH ×2 (08:09→20:46)
[2021-08-27] MEDS: Fluticasone Propionate Nasal Spray 16 gm Bottle NASAL SCH (08:10)
[2021-08-27 13:05] LABS: HBCM Index 0.07 S/CO (0-0.79); Hepatitis B Core IgM Abs Non-Reactive (NonReactive)
[2021-08-27 13:16] LABS: Hep B Surf AB Reactive (NonReactive)
[2021-08-27] MEDS: Rosuvastatin 10 MG TAB PO SCH (20:58)
[2021-08-27] MEDS: Gabapentin 300 MG CAP PO SCH (20:58)
[2021-08-27] MEDS: Amlodipine 10 MG TAB PO SCH (20:59)
[2021-08-27] MEDS: Benzonatate 100 MG CAP PO PRN (21:00)
[2021-08-27] MEDS ORDERED: HumaLOG 300 UNITS/3 ML VIAL SC SCH (23:55)
[2021-08-28] MEDS: Albuterol 200 PUFF (6.7GM INHALER) INH SCH ×6 (02:15→22:59)
[2021-08-28] MEDS: HumaLOG 300 UNITS/3 ML VIAL SC PRN ×4 (04:36→20:29)
[2021-08-28 05:02] LABS: Hemoglobin 8.3 g/dL (12.0-16.0); Mean Corpuscular HGB CONC 32.2 g/dL (32.0-36.0); Mean Corpuscular Hemoglobin 29.4 pg (27.0-31.0); Mean Corpuscular Volume 91.3 fL (78.0-98.0); Mean Platelet Volume 7.3 fL (7.4-10.4); Platelet Count 160 thou/uL (130-400); RBC Distribution Width 12.7 % (11.5-14.5); Red Blood Cell (RBC) Count 2.83 mill/uL (4.20-5.40)
[2021-08-28 05:35] LABS: Anion Gap 13 mmol/L (10-20); BUN (Urea Nitrogen) 42 mg/dL (7.0-18.7); Calc. Creatinine Clearance 28 mL/min (70-130); Calcium 7.8 mg/dL (7.8-10.44); Carbon Dioxide 28 mmol/L (22-29); Chloride 98 mmol/L (98-107); Glucose 426 mg/dL (70-105); Potassium 4.6 mmol/L (3.5-5.1); Sodium 134 mmol/L (136-145)
[2021-08-28] MEDS ORDERED: NPH, Human Insulin Isophane 300 UNIT/3 ML VIAL SC SCH (09:00)
[2021-08-28] MEDS: cloNIDine 0.1 MG TAB PO SCH ×3 (09:08→20:36)
[2021-08-28] MEDS: hydrALAZINE 25 MG TAB PO SCH ×3 (09:08→20:37)
[2021-08-28] MEDS: medroxyPROGESTERone Acetate 2.5 MG TAB PO SCH (09:09)
[2021-08-28] MEDS: Ferrous Sulfate 325 MG TAB PO SCH ×2 (09:09→17:23)
[2021-08-28] MEDS: Loratadine 10 MG TAB PO SCH (09:09)
[2021-08-28] MEDS: Calcium Acetate 667 MG CAP PO SCH ×3 (09:09→17:23)
[2021-08-28] MEDS: Folic Acid 1 MG TAB PO SCH (09:09)
[2021-08-28] MEDS: Carvedilol 25 MG TAB PO SCH ×2 (09:09→20:36)
[2021-08-28] MEDS: Calcitriol 0.25 MCG CAP PO SCH (09:09)
[2021-08-28] MEDS: Polyethylene Glycol 3350 17 GM Packet PO SCH (09:09)
[2021-08-28] MEDS: Docusate 100 MG CAP PO SCH (09:09)
[2021-08-28] MEDS: NPH, Human Insulin Isophane 300 UNIT/3 ML VIAL SC SCH ×2 (09:10→20:30)
[2021-08-28] MEDS: Fluticasone Propionate Nasal Spray 16 gm Bottle NASAL SCH (09:10)
[2021-08-28] MEDS ORDERED: HumaLOG 300 UNITS/3 ML VIAL SC SCH (11:45)
[2021-08-28] MEDS: Gabapentin 300 MG CAP PO SCH (20:36)
[2021-08-28] MEDS: Amlodipine 10 MG TAB PO SCH (20:36)
[2021-08-28] MEDS: Rosuvastatin 10 MG TAB PO SCH (20:38)
[2021-08-29] MEDS: Albuterol 200 PUFF (6.7GM INHALER) INH SCH ×4 (02:43→14:03)
[2021-08-29 06:29] LABS: Anion Gap 10 mmol/L (10-20); BUN (Urea Nitrogen) 45 mg/dL (7.0-18.7); Calc. Creatinine Clearance 32 mL/min (70-130); Carbon Dioxide 23 mmol/L (22-29); Chloride 108 mmol/L (98-107); Glucose 121 mg/dL (70-105); Potassium 3.7 mmol/L (3.5-5.1); Sodium 137 mmol/L (136-145)
[2021-08-29] MEDS: Ferrous Sulfate 325 MG TAB PO SCH ×2 (08:25→17:10)
[2021-08-29] MEDS: Carvedilol 25 MG TAB PO SCH ×2 (08:25→20:33)
[2021-08-29] MEDS: Docusate 100 MG CAP PO SCH (08:25)
[2021-08-29] MEDS: Polyethylene Glycol 3350 17 GM Packet PO SCH (08:25)
[2021-08-29] MEDS: cloNIDine 0.1 MG TAB PO SCH ×3 (08:25→20:33)
[2021-08-29] MEDS: hydrALAZINE 25 MG TAB PO SCH ×3 (08:26→20:32)
[2021-08-29] MEDS: medroxyPROGESTERone Acetate 2.5 MG TAB PO SCH (08:26)
[2021-08-29] MEDS: Calcium Acetate 667 MG CAP PO SCH ×3 (08:26→17:10)
[2021-08-29] MEDS: Calcitriol 0.25 MCG CAP PO SCH (08:27)
[2021-08-29] MEDS: Folic Acid 1 MG TAB PO SCH (08:27)
[2021-08-29] MEDS: Loratadine 10 MG TAB PO SCH (08:27)
[2021-08-29] MEDS: NPH, Human Insulin Isophane 300 UNIT/3 ML VIAL SC SCH ×2 (08:34→20:30)
[2021-08-29] MEDS ORDERED: Heparin 10,000 UNITS/ 10 ML VIAL ONE (11:40)
[2021-08-29 11:51] VITALS: BMI 48.4
[2021-08-29] MEDS: Fluticasone Propionate Nasal Spray 16 gm Bottle NASAL SCH (14:07)
[2021-08-29 16:41] LABS: Hep B Core Total Ab Non-Reactive (NonReactive); Hep B Core Total Index 0.05 S/CO (0-0.79)
[2021-08-29] MEDS ORDERED: Albuterol 200 PUFF (6.7GM INHALER) INH PRN (17:30)
[2021-08-29] MEDS: HumaLOG 300 UNITS/3 ML VIAL SC PRN (20:29)
[2021-08-29] MEDS: Gabapentin 300 MG CAP PO SCH (20:31)
[2021-08-29] MEDS: Amlodipine 10 MG TAB PO SCH (20:32)
[2021-08-29] MEDS: Rosuvastatin 10 MG TAB PO SCH (20:33)
[2021-08-29] MEDS: Acetaminophen 325 MG TAB PO PRN (20:34)
[2021-08-29] MEDS ORDERED: Melatonin 3 MG TAB PO SCH (22:19)
[2021-08-29] MEDS ORDERED: hydrOXYzine 25 MG TAB PO SCH (22:19)
[2021-08-30] MEDS: Polyethylene Glycol 3350 17 GM Packet PO SCH (07:58)
[2021-08-30] MEDS: hydrALAZINE 25 MG TAB PO SCH ×3 (07:58→21:05)
[2021-08-30] MEDS: Carvedilol 25 MG TAB PO SCH ×2 (08:00→21:02)
[2021-08-30] MEDS: Docusate 100 MG CAP PO SCH (08:00)
[2021-08-30] MEDS: Ferrous Sulfate 325 MG TAB PO SCH ×2 (08:00→17:22)
[2021-08-30] MEDS: Calcium Acetate 667 MG CAP PO SCH ×3 (08:00→17:22)
[2021-08-30] MEDS: Calcitriol 0.25 MCG CAP PO SCH (08:00)
[2021-08-30] MEDS: Loratadine 10 MG TAB PO SCH (08:00)
[2021-08-30] MEDS: cloNIDine 0.1 MG TAB PO SCH ×3 (08:00→21:03)
[2021-08-30] MEDS: Folic Acid 1 MG TAB PO SCH (08:00)
[2021-08-30] MEDS: medroxyPROGESTERone Acetate 2.5 MG TAB PO SCH (08:01)
[2021-08-30] MEDS: NPH, Human Insulin Isophane 300 UNIT/3 ML VIAL SC SCH ×3 (08:01→21:07)
[2021-08-30] MEDS: Fluticasone Propionate Nasal Spray 16 gm Bottle NASAL SCH (08:06)
[2021-08-30] MEDS: EPOETIN ALFA-EPBX (ESRD) 4,000 UNIT/ML VIAL SC SCH (12:59)
[2021-08-30] MEDS: HumaLOG 300 UNITS/3 ML VIAL SC PRN ×2 (16:45→21:07)
[2021-08-30] MEDS ORDERED: HYDROcodone/Acetaminophen 10/325 mg Tablet PO SCH (17:45)
[2021-08-30] MEDS: Amlodipine 10 MG TAB PO SCH (21:02)
[2021-08-30] MEDS: Gabapentin 300 MG CAP PO SCH (21:03)
[2021-08-30] MEDS: Rosuvastatin 10 MG TAB PO SCH (21:06)
[2021-08-31] MEDS: HumaLOG 300 UNITS/3 ML VIAL SC PRN ×3 (05:30→20:58)
[2021-08-31 05:52] LABS: Hemoglobin 7.7 g/dL (12.0-16.0); Mean Corpuscular HGB CONC 32.3 g/dL (32.0-36.0); Mean Corpuscular Hemoglobin 29.7 pg (27.0-31.0); Mean Corpuscular Volume 91.9 fL (78.0-98.0); Platelet Count 179 thou/uL (130-400); RBC Distribution Width 13.1 % (11.5-14.5); Red Blood Cell (RBC) Count 2.58 mill/uL (4.20-5.40); White Blood Cell (WBC) Count 5.8 thou/uL (4.8-10.8)
[2021-08-31 06:13] LABS: Anion Gap 12 mmol/L (10-20); BUN (Urea Nitrogen) 49 mg/dL (7.0-18.7); Calc. Creatinine Clearance 26 mL/min (70-130); Calcium 7.4 mg/dL (7.8-10.44); Carbon Dioxide 28 mmol/L (22-29); Chloride 99 mmol/L (98-107); Glucose 231 mg/dL (70-105); Potassium 4.6 mmol/L (3.5-5.1); Sodium 134 mmol/L (136-145)
[2021-08-31] MEDS: hydrALAZINE 25 MG TAB PO SCH ×3 (08:05→20:55)
[2021-08-31] MEDS: Polyethylene Glycol 3350 17 GM Packet PO SCH (08:05)
[2021-08-31] MEDS: Loratadine 10 MG TAB PO SCH (08:05)
[2021-08-31] MEDS: NPH, Human Insulin Isophane 300 UNIT/3 ML VIAL SC SCH ×2 (08:05→20:58)
[2021-08-31] MEDS: Carvedilol 25 MG TAB PO SCH ×2 (08:05→20:56)
[2021-08-31] MEDS: Calcium Acetate 667 MG CAP PO SCH ×3 (08:05→18:10)
[2021-08-31] MEDS: cloNIDine 0.1 MG TAB PO SCH ×3 (08:05→20:56)
[2021-08-31] MEDS: Ferrous Sulfate 325 MG TAB PO SCH ×2 (08:05→18:10)
[2021-08-31] MEDS: Calcitriol 0.25 MCG CAP PO SCH (08:05)
[2021-08-31] MEDS: medroxyPROGESTERone Acetate 2.5 MG TAB PO SCH (08:05)
[2021-08-31] MEDS: Folic Acid 1 MG TAB PO SCH (08:06)
[2021-08-31] MEDS: Docusate 100 MG CAP PO SCH (08:06)
[2021-08-31] MEDS: Fluticasone Propionate Nasal Spray 16 gm Bottle NASAL SCH (08:10)
[2021-08-31] MEDS ORDERED: Heparin 10,000 UNITS/ 10 ML VIAL ONE (09:30)
[2021-08-31] MEDS: Gabapentin 300 MG CAP PO SCH (20:55)
[2021-08-31] MEDS: Rosuvastatin 10 MG TAB PO SCH (20:55)
[2021-08-31] MEDS: Amlodipine 10 MG TAB PO SCH (20:56)
[2021-09-01 06:28] LABS: Hemoglobin 8.2 g/dL (12.0-16.0); Mean Corpuscular HGB CONC 32.4 g/dL (32.0-36.0); Mean Corpuscular Hemoglobin 29.6 pg (27.0-31.0); Mean Corpuscular Volume 91.3 fL (78.0-98.0); Mean Platelet Volume 6.8 fL (7.4-10.4); Platelet Count 204 thou/uL (130-400); RBC Distribution Width 12.9 % (11.5-14.5); Red Blood Cell (RBC) Count 2.78 mill/uL (4.20-5.40)
[2021-09-01 06:41] LABS: Anion Gap 12 mmol/L (10-20); BUN (Urea Nitrogen) 33 mg/dL (7.0-18.7); Calc. Creatinine Clearance 36 mL/min (70-130); Calcium 7.6 mg/dL (7.8-10.44); Carbon Dioxide 27 mmol/L (22-29); Chloride 101 mmol/L (98-107); Glucose 202 mg/dL (70-105); Potassium 4.1 mmol/L (3.5-5.1); Sodium 136 mmol/L (136-145)
[2021-09-01 08:10] VITALS: TEMP 98.1
[2021-09-01] MEDS: cloNIDine 0.1 MG TAB PO SCH ×2 (08:52→16:37)
[2021-09-01] MEDS: Calcium Acetate 667 MG CAP PO SCH ×3 (08:52→16:43)
[2021-09-01] MEDS: medroxyPROGESTERone Acetate 2.5 MG TAB PO SCH (08:52)
[2021-09-01] MEDS: Carvedilol 25 MG TAB PO SCH (08:52)
[2021-09-01] MEDS: Polyethylene Glycol 3350 17 GM Packet PO SCH (08:52)
[2021-09-01] MEDS: Loratadine 10 MG TAB PO SCH (08:53)
[2021-09-01] MEDS: Calcitriol 0.25 MCG CAP PO SCH (08:53)
[2021-09-01] MEDS: Docusate 100 MG CAP PO SCH (08:53)
[2021-09-01] MEDS: Ferrous Sulfate 325 MG TAB PO SCH ×2 (08:53→16:43)
[2021-09-01] MEDS: hydrALAZINE 25 MG TAB PO SCH ×2 (08:53→16:37)
[2021-09-01] MEDS: Fluticasone Propionate Nasal Spray 16 gm Bottle NASAL SCH (08:53)
[2021-09-01] MEDS: Folic Acid 1 MG TAB PO SCH (08:53)
[2021-09-01] MEDS: NPH, Human Insulin Isophane 300 UNIT/3 ML VIAL SC SCH (08:54)
[2021-09-01] MEDS ORDERED: PARoxetine 20 MG TAB PO SCH (09:00)
[2021-09-01] MEDS ORDERED: Heparin 10,000 UNITS/ 10 ML VIAL ONE (09:22)
[2021-09-01] MEDS: HumaLOG 300 UNITS/3 ML VIAL SC PRN (12:12)
[2021-09-01 16:58] VITALS: BP 156/66
== END 2021-09-01 18:15 | disposition home health service (06) | DRG 673 ==
LOC: 2NO 19:39 → IMCU/EMU 08-04 18:47 → T4-A 08-08 23:08
PROVIDERS: ADMIT Internal Medicine; ATTEND Internal Medicine
PROC: 3E03329 Introduction of Other Anti-infective into Peripheral Vein, Percutaneous Approach (ICD-10-PCS; 2021-08-01)
PROC: 0W9B30Z Drainage of Left Pleural Cavity with Drainage Device, Percutaneous Approach (ICD-10-PCS; 2021-08-02)
PROC: 30233N1 Transfusion of Nonautologous Red Blood Cells into Peripheral Vein, Percutaneous Approach (ICD-10-PCS; 2021-08-02)
PROC: 5A0945A Assistance with Respiratory Ventilation, 24-96 Consecutive Hours, High Flow/Velocity Cannula (ICD-10-PCS; 2021-08-04)
PROC: 5A1D70Z Performance of Urinary Filtration, Intermittent, Less than 6 Hours Per Day (ICD-10-PCS; principal; 2021-08-07)
PROC: 0JH60XZ Insertion of Tunneled Vascular Access Device into Chest Subcutaneous Tissue and Fascia, Open Approach (ICD-10-PCS; 2021-08-07)
PROC: 02HV33Z Insertion of Infusion Device into Superior Vena Cava, Percutaneous Approach (ICD-10-PCS; 2021-08-07)
PROC: 02HV33Z Insertion of Infusion Device into Superior Vena Cava, Percutaneous Approach (ICD-10-PCS; 2021-08-07)
PROC: B5181ZA Fluoroscopy of Superior Vena Cava using Low Osmolar Contrast, Guidance (ICD-10-PCS; 2021-08-07)
PROC: B548ZZA Ultrasonography of Superior Vena Cava, Guidance (ICD-10-PCS; 2021-08-07)
PROC: 8E0ZXY6 Isolation (ICD-10-PCS; 2021-08-09)
DX: N17.9 Acute kidney failure, unspecified (principal); J18.9 Pneumonia, unspecified organism; J96.01 Acute respiratory failure with hypoxia; I50.33 Acute on chronic diastolic (congestive) heart failure; U07.1 COVID-19; J12.82 Pneumonia due to coronavirus disease 2019; E87.1 Hypo-osmolality and hyponatremia; T82.868A Thrombosis due to vascular prosthetic devices, implants and grafts, initial encounter; R18.8 Other ascites; I82.612 Acute embolism and thrombosis of superficial veins of left upper extremity; Z68.42 Body mass index [BMI] 45.0-49.9, adult; J91.8 Pleural effusion in other conditions classified elsewhere; N18.6 End stage renal disease; N25.81 Secondary hyperparathyroidism of renal origin; I11.0 Hypertensive heart disease with heart failure; E78.5 Hyperlipidemia, unspecified; E11.22 Type 2 diabetes mellitus with diabetic chronic kidney disease; F41.9 Anxiety disorder, unspecified; D63.1 Anemia in chronic kidney disease; J45.909 Unspecified asthma, uncomplicated; F31.9 Bipolar disorder, unspecified; R79.89 Other specified abnormal findings of blood chemistry; R77.8 Other specified abnormalities of plasma proteins; F12.10 Cannabis abuse, uncomplicated; L89.152 Pressure ulcer of sacral region, stage 2; E11.40 Type 2 diabetes mellitus with diabetic neuropathy, unspecified; E66.01 Morbid (severe) obesity due to excess calories; E87.5 Hyperkalemia; N92.1 Excessive and frequent menstruation with irregular cycle; N88.8 Other specified noninflammatory disorders of cervix uteri; N92.4 Excessive bleeding in the premenopausal period; M25.561 Pain in right knee; R53.1 Weakness; N04.9 Nephrotic syndrome with unspecified morphologic changes; K04.7 Periapical abscess without sinus; K59.00 Constipation, unspecified; E83.39 Other disorders of phosphorus metabolism; K04.1 Necrosis of pulp; E83.51 Hypocalcemia; Y84.8 Other medical procedures as the cause of abnormal reaction of the patient, or of later complication, without mention of misadventure at the time of the procedure; Z99.2 Dependence on renal dialysis; Z28.21 Immunization not carried out because of patient refusal; Z87.891 Personal history of nicotine dependence; Z79.4 Long term (current) use of insulin; Z88.8 Allergy status to other drugs, medicaments and biological substances; Z83.3 Family history of diabetes mellitus; Z79.899 Other long term (current) drug therapy; Z79.84 Long term (current) use of oral hypoglycemic drugs
CPT/HCPCS: 36415; 36416; 36430; 36600; 70450; 71045; 71250; 74176; 74177; 76856; 80048; 80053; 80076; 80202; 81025; 82150; 82607; 82728; 82746; 82805; 82945; 83036; 83540; 83550; 83615; 83735; 83880; 83970; 83986; 84100; 84157; 84478; 85025; 85027; 85060; 85610; 85730; 86304; 86704; 86705; 86706; 86769; 86850; 86900; 86901; 87040; 87070; 87116; 87205; 87206; 87340; 88112; 88305; 89051; 90935; 93005; 93010; 93970; 94640; C1751; C1752; G0257; J0171; J0360; J0690; J0692; J1100; J1170; J1644; J1815; J1940; J2185; J2405; J2704; J2720; J2916; J2930; J3010; J3370; J3490; J7050; J7512; J7611; J8540; P9016; P9047; Q5105; S0020; U0002; U0003; U0005

== ENCOUNTER 2022-02-26 06:47 | Inpatient (IN) | payer MEDICARE, MEDICAID ==
[2022-02-26 08:02] VITALS: BMI 31.4
[2022-02-26] MEDS ORDERED: Heparin 10,000 UNITS/ 10 ML VIAL ONE ×2 (08:35→13:05)
[2022-02-26] MEDS ORDERED: Ondansetron PF 4 MG/2 ML Vial IVP PRN (08:39)
[2022-02-26] MEDS ORDERED: Acetaminophen 325 MG TAB PO PRN (08:39)
[2022-02-26] MEDS ORDERED: Dextrose 50% Abboject 50 ML SYRINGE SLOW IVP PRN (08:39)
[2022-02-26] MEDS ORDERED: Dextrose 5% in Water 1,000 ML IV PRN (08:39)
[2022-02-26] MEDS ORDERED: Guaifenesin DM 100-10/5 ML UDCUP PO PRN (08:39)
[2022-02-26] MEDS ORDERED: Polyethylene Glycol 3350 17 GM Packet PO PRN (08:51)
[2022-02-26] MEDS ORDERED: Ketorolac Tromethamine 30 MG/ML VIAL IVP SCH (09:00)
[2022-02-26] MEDS: Senokot S 8.6-50 MG TAB PO SCH (09:54)
[2022-02-26] MEDS: PARoxetine 20 MG TAB PO SCH (09:54)
[2022-02-26] MEDS: Enoxaparin Sodium 30 MG/0.3 ML SYRINGE SC SCH (09:54)
[2022-02-26] MEDS: Carvedilol 6.25 MG TAB PO SCH (09:58)
[2022-02-26] MEDS ORDERED: Vancomycin Diaylsis Sliding Scale (Wt 71-99) FS SCH (10:00)
[2022-02-26] MEDS: Sodium Chloride 0.9% 1,000 ML IV SCH ×2 (10:02→15:00)
[2022-02-26] MEDS: Nicotine 14 MG PATCH TD SCH (10:10)
[2022-02-26] MEDS: Cefepime 1 GM in Sodium Chloride 0.9% 100 ML IVPB SCH (10:10)
[2022-02-26] MEDS: Insulin Glargine 30 UNITS/0.3 ML VIAL SC SCH (10:16)
[2022-02-26 10:31] LABS: SARS-CoV-2 NAA Rapid Test Not Detected (NotDetected)
[2022-02-26] MEDS ORDERED: Bupivacaine/Epinephrine 0.25% 30 ML VIAL ONE (12:01)
[2022-02-26] MEDS: metroNIDAZOLE 250 MG in Admixture Fee 1 EACH IVPB SCH ×2 (12:08→17:29)
[2022-02-26] MEDS: Vancomycin HCl 500 MG in Sodium Chloride 0.9% 100 ML IVPB SCH ×2 (12:09→15:01)
[2022-02-26] MEDS ORDERED: fentaNYL Citrate/PF 100 MCG/2 ML SYRINGE ONE (12:11)
[2022-02-26] MEDS ORDERED: PROPOFOL 200 MG/20 ML VIAL ONE (12:37)
[2022-02-26] MEDS ORDERED: Rocuronium Bromide 10 MG/ML (10ML VIAL) ONE (12:37)
[2022-02-26] MEDS ORDERED: ePHEDrine 50 MG/ML VIAL ONE (12:37)
[2022-02-26] MEDS ORDERED: Ondansetron PF 4 MG/2 ML Vial ONE (12:37)
[2022-02-26] MEDS ORDERED: SUGAMMADEX SODIUM 200 MG/2 ML VIAL ONE (12:38)
[2022-02-26] MEDS ORDERED: Albuterol Sulfate 2.5 mg/3 ml Neb ONE (13:52)
[2022-02-26] MEDS ORDERED: Albuterol Sulfate 2.5 mg/3 ml Neb NEB PRN (13:55)
[2022-02-26] MEDS ORDERED: Promethazine HCl 25 MG/ML VIAL IVPB PRN (13:55)
[2022-02-26] MEDS ORDERED: Ondansetron HCl/PF 4 MG/2 ML Vial IVP PRN (13:55)
[2022-02-26] MEDS ORDERED: Promethazine HCl 25 MG/ML VIAL IM PRN (13:55)
[2022-02-26] MEDS ORDERED: Fentanyl 100 MCG/2 ML VIAL ONE (14:11)
[2022-02-26] MEDS: HYDROcodone/Acetaminophen 5/325 mg Tablet PO PRN (15:01)
[2022-02-26] MEDS: HumaLOG 300 UNITS/3 ML VIAL SC PRN ×3 (15:12→20:30)
[2022-02-26 16:49] LABS: Hemoglobin 8.1 g/dL (12.0-16.0); Mean Corpuscular HGB CONC 33.4 g/dL (32.0-36.0); Mean Corpuscular Volume 95.8 fL (78.0-98.0); Mean Platelet Volume 8.9 fL (7.4-10.4); Platelet Count 160 thou/uL (130-400); RBC Distribution Width 12.9 % (11.5-14.5); Red Blood Cell (RBC) Count 2.54 mill/uL (4.20-5.40); White Blood Cell (WBC) Count 19.2 thou/uL (4.8-10.8)
[2022-02-26 17:02] LABS: Band 38 % (5-11); Lymphocytes 4 % (21-51); MDiff Complete? YES; Metamyelocyte 2 % (0-0); Monocytes 4 % (0-10); Neutrophil 51 % (42-75); Platelet Morphology Comment Appears Adequate; Polychromasia SLIGHT = 2-3 cells (100X) (0-2/hpf); Reactive Lymphocytes 1 % (0-10); Toxic Granulation SLIGHT; Vacuoles SLIGHT
[2022-02-26 17:25] LABS: HBSAB Concentration Less than 8.00 mIU/mL; HBSAg Index 0.31 S/CO (0-0.99); Hep B Surf AB Non-Reactive (NonReactive); Hep B Surf Ag Non-Reactive S/CO (NonReactive)
[2022-02-26] MEDS: Ferrous Sulfate 325 MG TAB PO SCH (17:29)
[2022-02-26] MEDS: Albuterol Sulfate 2.5 mg/3 ml Neb NEB SCH (18:39)
[2022-02-26] MEDS ORDERED: Gabapentin 300 MG CAP PO SCH (21:00)
[2022-02-27] MEDS: Amlodipine 10 MG TAB PO SCH ×2 (00:48→21:08)
[2022-02-27] MEDS: Carvedilol 6.25 MG TAB PO SCH ×3 (00:49→21:08)
[2022-02-27] MEDS: HYDROcodone/Acetaminophen 5/325 mg Tablet PO PRN ×2 (01:09→08:53)
[2022-02-27] MEDS: Rosuvastatin 10 MG TAB PO SCH ×3 (01:10→20:58)
[2022-02-27] MEDS: Insulin Glargine 30 UNITS/0.3 ML VIAL SC SCH ×3 (01:11→20:54)
[2022-02-27] MEDS: Senokot S 8.6-50 MG TAB PO SCH ×3 (01:11→20:54)
[2022-02-27] MEDS: Sodium Chloride 0.9% 1,000 ML IV SCH (01:27)
[2022-02-27] MEDS: metroNIDAZOLE 250 MG in Admixture Fee 1 EACH IVPB SCH ×3 (01:30→17:51)
[2022-02-27] MEDS: Albuterol Sulfate 2.5 mg/3 ml Neb NEB SCH ×4 (02:00→18:53)
[2022-02-27] MEDS: HumaLOG 300 UNITS/3 ML VIAL SC PRN ×4 (06:29→20:52)
[2022-02-27] MEDS ORDERED: Epoetin (ESRD) 20,000 UNITS/ML SC SCH (07:30)
[2022-02-27 07:32] LABS: ALT (SGPT) Less than 7 U/L (8-55); AST (SGOT) 11 U/L (5-34); Alkaline Phosphatase 133 U/L (40-110); Anion Gap 11 mmol/L (10-20); BUN (Urea Nitrogen) 24 mg/dL (7.0-18.7); Bilirubin, Total 0.3 mg/dL (0.2-1.2); Calc. Creatinine Clearance 24 mL/min (70-130); Calcium 7.5 mg/dL (7.8-10.44); Carbon Dioxide 28 mmol/L (22-29); Chloride 98 mmol/L (98-107); Estimated GFR 14; Globulin 2.7 g/dL (2.4-3.5); Glucose 265 mg/dL (70-105); Potassium 3.2 mmol/L (3.5-5.1); Protein, Total 4.7 g/dL (6.0-8.3); Sodium 134 mmol/L (136-145)
[2022-02-27 07:37] LABS: Mean Corpuscular HGB CONC 33.2 g/dL (32.0-36.0); Mean Corpuscular Hemoglobin 32.5 pg (27.0-31.0); Mean Corpuscular Volume 97.7 fL (78.0-98.0); Mean Platelet Volume 8.9 fL (7.4-10.4); Platelet Count 179 thou/uL (130-400); Red Blood Cell (RBC) Count 2.47 mill/uL (4.20-5.40)
[2022-02-27 07:57] LABS: Band 38 % (5-11); Eosinophils 1 % (0-10); Lymphocytes 7 % (21-51); MDiff Complete? YES; Monocytes 5 % (0-10); Neutrophil 49 % (42-75); Ovalocytes SLIGHT = 2-5 cells (100X) (0-1/hpf); Platelet Morphology Comment Appears Adequate; Polychromasia SLIGHT = 2-3 cells (100X) (0-2/hpf)
[2022-02-27 08:02] LABS: Hemoglobin A1c 10.2 % (4.0-6.0)
[2022-02-27] MEDS: PARoxetine 20 MG TAB PO SCH (08:52)
[2022-02-27] MEDS: Ferrous Sulfate 325 MG TAB PO SCH ×2 (08:52→17:27)
[2022-02-27] MEDS: Cefepime 1 GM in Sodium Chloride 0.9% 100 ML IVPB SCH (08:52)
[2022-02-27] MEDS: Enoxaparin Sodium 30 MG/0.3 ML SYRINGE SC SCH (08:59)
[2022-02-27] MEDS: Nicotine 14 MG PATCH TD SCH (10:52)
[2022-02-27] MEDS: Morphine 4 MG/ML VIAL SLOW IVP PRN ×2 (11:48→20:53)
[2022-02-27] MEDS: Epoetin (ESRD) 10,000 UNITS/ML VIAL SC SCH (13:12)
[2022-02-27] MEDS ORDERED: Potassium Chloride 20 MEQ TAB PO SCH (14:30)
[2022-02-27] MEDS: Gabapentin 300 MG CAP PO SCH (20:53)
[2022-02-27] MEDS ORDERED: Insulin Glargine 30 UNITS/0.3 ML VIAL SC SCH (21:00)
[2022-02-27] MEDS: Calcium Carbonate 500 MG ChewTAB PO PRN (21:10)
[2022-02-28] MEDS: Albuterol Sulfate 2.5 mg/3 ml Neb NEB SCH ×4 (00:31→18:55)
[2022-02-28] MEDS: Calcium Carbonate 500 MG ChewTAB PO PRN (02:41)
[2022-02-28] MEDS: metroNIDAZOLE 250 MG in Admixture Fee 1 EACH IVPB SCH ×3 (02:41→20:09)
[2022-02-28 06:38] LABS: Hemoglobin 7.9 g/dL (12.0-16.0); Mean Corpuscular HGB CONC 32.9 g/dL (32.0-36.0); Mean Corpuscular Hemoglobin 32.2 pg (27.0-31.0); Mean Platelet Volume 8.3 fL (7.4-10.4); Platelet Count 222 thou/uL (130-400); RBC Distribution Width 13.2 % (11.5-14.5); Red Blood Cell (RBC) Count 2.46 mill/uL (4.20-5.40); White Blood Cell (WBC) Count 18.7 thou/uL (4.8-10.8)
[2022-02-28] MEDS ORDERED: fentaNYL Citrate/PF 100 MCG/2 ML SYRINGE ONE (06:45)
[2022-02-28] MEDS ORDERED: SUGAMMADEX SODIUM 200 MG/2 ML VIAL ONE (06:45)
[2022-02-28] MEDS ORDERED: Famotidine/PF 20 mg/2ml Vial ONE (06:45)
[2022-02-28] MEDS ORDERED: Bupivacaine PF 0.5% 30 ML VIAL ONE (07:04)
[2022-02-28] MEDS ORDERED: Protamine Sulfate 50 MG/5 ML VIAL ONE (07:04)
[2022-02-28] MEDS ORDERED: EPINEPHrine 1 MG/ML AMP ONE (07:04)
[2022-02-28] MEDS ORDERED: Lidocaine 2% PF 5 ML VIAL ONE (07:04)
[2022-02-28] MEDS ORDERED: Heparin 5,000 UNITS/ML VIAL ONE (07:04)
[2022-02-28 07:07] LABS: Phosphorus 2.3 mg/dL (2.3-4.7)
[2022-02-28 07:14] LABS: ALT (SGPT) 9 U/L (8-55); AST (SGOT) 23 U/L (5-34); Albumin 2.1 g/dL (3.5-5.0); Alkaline Phosphatase 320 U/L (40-110); Anion Gap 13 mmol/L (10-20); BUN (Urea Nitrogen) 42 mg/dL (7.0-18.7); Bilirubin, Direct 0.2 mg/dL (0.1-0.3); Bilirubin, Total 0.3 mg/dL (0.2-1.2); Calc. Creatinine Clearance 18 mL/min (70-130); Calcium 8.2 mg/dL (7.8-10.44); Carbon Dioxide 26 mmol/L (22-29); Chloride 96 mmol/L (98-107); Cholesterol 93 mg/dl (< 200 Desired); Estimated GFR 10; Glucose 242 mg/dL (70-105); HDL Cholesterol Less than 8 mg/dL (>60 Neg Risk); Magnesium 2.2 mg/dL (1.6-2.6); Potassium 3.5 mmol/L (3.5-5.1); Protein, Total 5.1 g/dL (6.0-8.3); Sodium 131 mmol/L (136-145); Triglycerides 210 mg/dL (Less than 150)
[2022-02-28 07:34] LABS: Band 32 % (5-11); Eosinophils 3 % (0-10); Lymphocytes 7 % (21-51); MDiff Complete? YES; Monocytes 3 % (0-10); Myelocyte 1 % (0-0); Neutrophil 54 % (42-75); Platelet Morphology Comment Appears Adequate; Polychromasia SLIGHT = 2-3 cells (100X) (0-2/hpf)
[2022-02-28] MEDS ORDERED: PROPOFOL 200 MG/20 ML VIAL ONE (07:39)
[2022-02-28] MEDS ORDERED: ePHEDrine 50 MG/ML VIAL ONE (07:39)
[2022-02-28] MEDS ORDERED: Ondansetron PF 4 MG/2 ML Vial ONE (07:39)
[2022-02-28] MEDS ORDERED: Lidocaine 1% MPF 2 ML VIAL ONE (07:39)
[2022-02-28] MEDS ORDERED: Phenylephrine 10 MG/ML VIAL ONE (07:39)
[2022-02-28] MEDS ORDERED: Metoclopramide HCl 10 MG/2 ML VIAL ONE (07:39)
[2022-02-28 08:02] LABS: Vancomycin, Random 12.6 ug/mL (See Comment)
[2022-02-28] MEDS ORDERED: Heparin 10,000 UNITS/ 10 ML VIAL ONE (08:50)
[2022-02-28] MEDS: Heparin 5,000 UNITS/ML VIAL SC SCH ×3 (08:54→19:44)
[2022-02-28] MEDS: Insulin Glargine 30 UNITS/0.3 ML VIAL SC SCH ×2 (08:54→19:41)
[2022-02-28] MEDS: Carvedilol 6.25 MG TAB PO SCH ×2 (08:54→19:46)
[2022-02-28] MEDS: PARoxetine 20 MG TAB PO SCH (08:54)
[2022-02-28] MEDS: Ferrous Sulfate 325 MG TAB PO SCH ×2 (08:54→16:52)
[2022-02-28] MEDS: Senokot S 8.6-50 MG TAB PO SCH ×2 (08:54→19:45)
[2022-02-28] MEDS ORDERED: Promethazine HCl 25 MG/ML VIAL IVPB PRN (09:47)
[2022-02-28] MEDS ORDERED: Promethazine HCl 25 MG/ML VIAL IM PRN (09:47)
[2022-02-28] MEDS ORDERED: Ondansetron HCl/PF 4 MG/2 ML Vial IVP PRN (09:47)
[2022-02-28] MEDS ORDERED: Fentanyl 100 MCG/2 ML VIAL ONE (10:30)
[2022-02-28] MEDS ORDERED: metroNIDAZOLE 500 MG/100 ML BAG ONE (10:44)
[2022-02-28] MEDS: Nicotine 14 MG PATCH TD SCH (11:29)
[2022-02-28] MEDS: Cefepime 1 GM in Sodium Chloride 0.9% 100 ML IVPB SCH (11:29)
[2022-02-28] MEDS: HYDROcodone/Acetaminophen 5/325 mg Tablet PO PRN (12:30)
[2022-02-28] MEDS: HumaLOG 300 UNITS/3 ML VIAL SC PRN ×2 (12:31→20:16)
[2022-02-28] MEDS ORDERED: Insulin Glargine 30 UNITS/0.3 ML VIAL SC SCH (13:45)
[2022-02-28] MEDS ORDERED: Vancomycin HCl 750 MG in Sodium Chloride 0.9% 250 ML 250 ML IVPB SCH (17:00)
[2022-02-28] MEDS: Amlodipine 10 MG TAB PO SCH (19:45)
[2022-02-28] MEDS: Rosuvastatin 10 MG TAB PO SCH (19:45)
[2022-02-28] MEDS: Gabapentin 300 MG CAP PO SCH (19:46)
[2022-03-01] MEDS: Albuterol Sulfate 2.5 mg/3 ml Neb NEB SCH ×4 (01:25→18:32)
[2022-03-01] MEDS: metroNIDAZOLE 250 MG in Admixture Fee 1 EACH IVPB SCH ×3 (02:05→17:15)
[2022-03-01] MEDS: HumaLOG 300 UNITS/3 ML VIAL SC PRN ×2 (04:00→13:11)
[2022-03-01] MEDS: HYDROcodone/Acetaminophen 5/325 mg Tablet PO PRN ×2 (04:57→08:58)
[2022-03-01 05:03] LABS: Anion Gap 12 mmol/L (10-20); BUN (Urea Nitrogen) 23 mg/dL (7.0-18.7); Calc. Creatinine Clearance 24 mL/min (70-130); Calcium 7.6 mg/dL (7.8-10.44); Carbon Dioxide 27 mmol/L (22-29); Chloride 96 mmol/L (98-107); Estimated GFR 14; Glucose 261 mg/dL (70-105); Magnesium 1.9 mg/dL (1.6-2.6); Potassium 3.7 mmol/L (3.5-5.1); Sodium 131 mmol/L (136-145)
[2022-03-01 06:33] LABS: Band 19 % (5-11); Hemoglobin 7.3 g/dL (12.0-16.0); Lymphocytes 13 % (21-51); MDiff Complete? YES; Mean Corpuscular HGB CONC 32.8 g/dL (32.0-36.0); Mean Corpuscular Hemoglobin 32.3 pg (27.0-31.0); Mean Corpuscular Volume 98.5 fL (78.0-98.0); Mean Platelet Volume 8.1 fL (7.4-10.4); Monocytes 1 % (0-10); Neutrophil 67 % (42-75); Platelet Count 227 thou/uL (130-400); RBC Distribution Width 13.5 % (11.5-14.5); Red Blood Cell (RBC) Count 2.26 mill/uL (4.20-5.40); White Blood Cell (WBC) Count 18.5 thou/uL (4.8-10.8)
[2022-03-01] MEDS: Senokot S 8.6-50 MG TAB PO SCH ×2 (08:56→20:29)
[2022-03-01] MEDS: Ferrous Sulfate 325 MG TAB PO SCH ×2 (08:56→17:15)
[2022-03-01] MEDS: Carvedilol 6.25 MG TAB PO SCH ×2 (08:57→20:30)
[2022-03-01] MEDS: Nicotine 14 MG PATCH TD SCH (08:57)
[2022-03-01] MEDS: Insulin Glargine 30 UNITS/0.3 ML VIAL SC SCH ×2 (08:57→20:27)
[2022-03-01] MEDS: PARoxetine 20 MG TAB PO SCH (08:57)
[2022-03-01] MEDS: Heparin 5,000 UNITS/ML VIAL SC SCH ×3 (08:57→20:28)
[2022-03-01] MEDS: Cefepime 1 GM in Sodium Chloride 0.9% 100 ML IVPB SCH (08:58)
[2022-03-01] MEDS ORDERED: Insulin Glargine 30 UNITS/0.3 ML VIAL SC SCH (11:45)
[2022-03-01] MEDS: Morphine 4 MG/ML VIAL SLOW IVP PRN (15:02)
[2022-03-01] MEDS: Rosuvastatin 10 MG TAB PO SCH (20:29)
[2022-03-01] MEDS: Amlodipine 10 MG TAB PO SCH (20:29)
[2022-03-01] MEDS: Gabapentin 300 MG CAP PO SCH (20:29)
[2022-03-02] MEDS: Albuterol Sulfate 2.5 mg/3 ml Neb NEB SCH ×4 (00:36→18:48)
[2022-03-02] MEDS: metroNIDAZOLE 250 MG in Admixture Fee 1 EACH IVPB SCH ×3 (01:06→17:41)
[2022-03-02 04:28] LABS: Anion Gap 12 mmol/L (10-20); BUN (Urea Nitrogen) 34 mg/dL (7.0-18.7); Calc. Creatinine Clearance 18 mL/min (70-130); Calcium 7.3 mg/dL (7.8-10.44); Carbon Dioxide 26 mmol/L (22-29); Chloride 97 mmol/L (98-107); Estimated GFR 10; Glucose 236 mg/dL (70-105); Potassium 3.8 mmol/L (3.5-5.1); Sodium 131 mmol/L (136-145)
[2022-03-02 05:58] LABS: Hemoglobin 6.2 g/dL (12.0-16.0); Mean Corpuscular HGB CONC 33.3 g/dL (32.0-36.0); Mean Corpuscular Hemoglobin 32.4 pg (27.0-31.0); Mean Corpuscular Volume 97.3 fL (78.0-98.0); Mean Platelet Volume 7.5 fL (7.4-10.4); Platelet Count 242 thou/uL (130-400); RBC Distribution Width 13.4 % (11.5-14.5); Red Blood Cell (RBC) Count 1.91 mill/uL (4.20-5.40); White Blood Cell (WBC) Count 16.7 thou/uL (4.8-10.8)
[2022-03-02 05:59] LABS: Band 14 % (5-11); Eosinophils 6 % (0-10); Lymphocytes 6 % (21-51); MDiff Complete? YES; Metamyelocyte 2 % (0-0); Monocytes 5 % (0-10); Myelocyte 2 % (0-0); Neutrophil 65 % (42-75)
[2022-03-02 06:43] LABS: Vancomycin, Random 14.8 ug/mL (See Comment)
[2022-03-02] MEDS: Morphine 4 MG/ML VIAL SLOW IVP PRN ×3 (08:10→20:38)
[2022-03-02] MEDS: Heparin 5,000 UNITS/ML VIAL SC SCH ×3 (08:12→20:19)
[2022-03-02] MEDS: PARoxetine 20 MG TAB PO SCH (08:13)
[2022-03-02] MEDS: Carvedilol 6.25 MG TAB PO SCH ×2 (08:13→20:17)
[2022-03-02] MEDS: Senokot S 8.6-50 MG TAB PO SCH ×2 (08:13→20:20)
[2022-03-02] MEDS: Ferrous Sulfate 325 MG TAB PO SCH ×2 (08:13→16:36)
[2022-03-02] MEDS ORDERED: Heparin 10,000 UNITS/ 10 ML VIAL ONE (08:54)
[2022-03-02] MEDS: Insulin Glargine 30 UNITS/0.3 ML VIAL SC SCH ×2 (09:16→20:22)
[2022-03-02] MEDS: Cefepime 1 GM in Sodium Chloride 0.9% 100 ML IVPB SCH (09:20)
[2022-03-02] MEDS: Nicotine 14 MG PATCH TD SCH (09:21)
[2022-03-02] MEDS ORDERED: Vancomycin HCl 750 MG in Sodium Chloride 0.9% 250 ML 250 ML IVPB SCH (17:00)
[2022-03-02 17:10] LABS: Hemoglobin 8.8 g/dL (12.0-16.0)
[2022-03-02] MEDS: Gabapentin 300 MG CAP PO SCH (20:17)
[2022-03-02] MEDS: Rosuvastatin 10 MG TAB PO SCH (20:18)
[2022-03-02] MEDS: Amlodipine 10 MG TAB PO SCH (20:18)
[2022-03-03] MEDS: Albuterol Sulfate 2.5 mg/3 ml Neb NEB SCH ×4 (02:45→18:21)
[2022-03-03] MEDS: metroNIDAZOLE 250 MG in Admixture Fee 1 EACH IVPB SCH ×3 (02:50→19:27)
[2022-03-03] MEDS: Morphine 4 MG/ML VIAL SLOW IVP PRN ×3 (05:07→19:48)
[2022-03-03 07:47] LABS: Anion Gap 13 mmol/L (10-20); BUN (Urea Nitrogen) 21 mg/dL (7.0-18.7); Calc. Creatinine Clearance 24 mL/min (70-130); Calcium 7.6 mg/dL (7.8-10.44); Carbon Dioxide 28 mmol/L (22-29); Chloride 99 mmol/L (98-107); Estimated GFR 14; Glucose 133 mg/dL (70-105); Magnesium 1.9 mg/dL (1.6-2.6); Potassium 3.5 mmol/L (3.5-5.1); Sodium 136 mmol/L (136-145)
[2022-03-03 08:07] LABS: Band 14 % (5-11); Eosinophils 5 % (0-10); Hemoglobin 8.5 g/dL (12.0-16.0); Lymphocytes 8 % (21-51); MDiff Complete? YES; Mean Corpuscular HGB CONC 33.1 g/dL (32.0-36.0); Mean Corpuscular Hemoglobin 31.3 pg (27.0-31.0); Mean Corpuscular Volume 94.7 fL (78.0-98.0); Mean Platelet Volume 7.7 fL (7.4-10.4); Metamyelocyte 1 % (0-0); Monocytes 5 % (0-10); Myelocyte 1 % (0-0); Neutrophil 62 % (42-75); Platelet Count 215 thou/uL (130-400); Platelet Morphology Comment Appears Adequate; Polychromasia SLIGHT = 2-3 cells (100X) (0-2/hpf); RBC Distribution Width 14.8 % (11.5-14.5); Reactive Lymphocytes 4 % (0-10); Red Blood Cell (RBC) Count 2.71 mill/uL (4.20-5.40); White Blood Cell (WBC) Count 13.2 thou/uL (4.8-10.8)
[2022-03-03] MEDS: Cefepime 1 GM in Sodium Chloride 0.9% 100 ML IVPB SCH (09:05)
[2022-03-03] MEDS: Carvedilol 6.25 MG TAB PO SCH ×2 (09:05→20:27)
[2022-03-03] MEDS: Senokot S 8.6-50 MG TAB PO SCH ×2 (09:05→20:27)
[2022-03-03] MEDS: PARoxetine 20 MG TAB PO SCH (09:05)
[2022-03-03] MEDS: Heparin 5,000 UNITS/ML VIAL SC SCH ×3 (09:06→20:27)
[2022-03-03] MEDS: Ferrous Sulfate 325 MG TAB PO SCH ×2 (09:06→18:14)
[2022-03-03] MEDS: Insulin Glargine 30 UNITS/0.3 ML VIAL SC SCH ×2 (09:17→20:27)
[2022-03-03] MEDS: Nicotine 14 MG PATCH TD SCH (11:01)
[2022-03-03] MEDS: Gabapentin 300 MG CAP PO SCH (20:26)
[2022-03-03] MEDS: Amlodipine 10 MG TAB PO SCH (20:26)
[2022-03-03] MEDS: Rosuvastatin 10 MG TAB PO SCH (20:27)
[2022-03-04] MEDS: Albuterol Sulfate 2.5 mg/3 ml Neb NEB SCH ×4 (00:35→19:22)
[2022-03-04] MEDS: metroNIDAZOLE 250 MG in Admixture Fee 1 EACH IVPB SCH ×3 (03:10→17:16)
[2022-03-04] MEDS: HYDROcodone/Acetaminophen 5/325 mg Tablet PO PRN ×3 (04:13→19:10)
[2022-03-04 06:27] LABS: Vancomycin, Random 15.3 ug/mL (See Comment)
[2022-03-04 06:35] LABS: Anion Gap 15 mmol/L (10-20); BUN (Urea Nitrogen) 29 mg/dL (7.0-18.7); Calc. Creatinine Clearance 18 mL/min (70-130); Calcium 7.4 mg/dL (7.8-10.44); Carbon Dioxide 25 mmol/L (22-29); Chloride 97 mmol/L (98-107); Estimated GFR 10; Glucose 130 mg/dL (70-105); Sodium 133 mmol/L (136-145)
[2022-03-04 06:58] LABS: #Eosinphils 0.5 thou/uL (0.0-0.7); #Lymphocytes 1.5 thou/uL (1.20-3.40); #Monocytes 0.8 thou/uL (0.11-0.59); #Neutrophils 8.3 thou/uL (1.40-6.50); %Eosinophils 4.3 % (0.0-10.0); %Lymphocytes 13.1 % (21.0-51.0); %Monocytes 7.5 % (0.0-10.0); Hemoglobin 8.4 g/dL (12.0-16.0); Mean Corpuscular HGB CONC 33.2 g/dL (32.0-36.0); Mean Corpuscular Hemoglobin 31.3 pg (27.0-31.0); Mean Corpuscular Volume 94.3 fL (78.0-98.0); Mean Platelet Volume 8.1 fL (7.4-10.4); Platelet Count 217 thou/uL (130-400); RBC Distribution Width 14.7 % (11.5-14.5); Red Blood Cell (RBC) Count 2.68 mill/uL (4.20-5.40); White Blood Cell (WBC) Count 11.1 thou/uL (4.8-10.8)
[2022-03-04] MEDS: Heparin 5,000 UNITS/ML VIAL SC SCH ×3 (08:41→20:58)
[2022-03-04] MEDS: Ferrous Sulfate 325 MG TAB PO SCH ×2 (08:42→17:16)
[2022-03-04] MEDS: PARoxetine 20 MG TAB PO SCH (08:42)
[2022-03-04] MEDS: Insulin Glargine 30 UNITS/0.3 ML VIAL SC SCH ×2 (08:42→20:53)
[2022-03-04] MEDS: Senokot S 8.6-50 MG TAB PO SCH ×2 (08:42→20:49)
[2022-03-04] MEDS: Carvedilol 6.25 MG TAB PO SCH ×2 (08:42→20:53)
[2022-03-04] MEDS ORDERED: Vancomycin HCl 500 MG in Sodium Chloride 0.9% 100 ML IVPB SCH (09:00)
[2022-03-04] MEDS: Nicotine 14 MG PATCH TD SCH (10:22)
[2022-03-04] MEDS: Cefepime 1 GM in Sodium Chloride 0.9% 100 ML IVPB SCH (10:30)
[2022-03-04] MEDS: Amlodipine 10 MG TAB PO SCH (20:50)
[2022-03-04] MEDS: Gabapentin 300 MG CAP PO SCH (20:50)
[2022-03-04] MEDS: Rosuvastatin 10 MG TAB PO SCH (20:52)
[2022-03-05] MEDS: Albuterol Sulfate 2.5 mg/3 ml Neb NEB SCH ×4 (00:54→19:17)
[2022-03-05] MEDS: HYDROcodone/Acetaminophen 5/325 mg Tablet PO PRN ×2 (01:56→21:33)
[2022-03-05] MEDS: metroNIDAZOLE 250 MG in Admixture Fee 1 EACH IVPB SCH ×2 (03:46→10:56)
[2022-03-05 07:26] LABS: #Eosinphils 0.4 thou/uL (0.0-0.7); #Monocytes 0.7 thou/uL (0.11-0.59); #Neutrophils 9.3 thou/uL (1.40-6.50); %Basophils 0.2 % (0.0-1.0); %Eosinophils 3.7 % (0.0-10.0); %Lymphocytes 8.5 % (21.0-51.0); %Monocytes 6.5 % (0.0-10.0); %Neutrophils 81.2 % (42.0-75.0); Hemoglobin 8.8 g/dL (12.0-16.0); Mean Corpuscular HGB CONC 32.8 g/dL (32.0-36.0); Mean Corpuscular Hemoglobin 31.4 pg (27.0-31.0); Mean Corpuscular Volume 95.7 fL (78.0-98.0); Mean Platelet Volume 7.8 fL (7.4-10.4); Platelet Count 252 thou/uL (130-400); RBC Distribution Width 14.3 % (11.5-14.5); White Blood Cell (WBC) Count 11.4 thou/uL (4.8-10.8)
[2022-03-05 07:37] LABS: Vancomycin, Random 19.1 ug/mL (See Comment)
[2022-03-05 07:41] LABS: Anion Gap 17 mmol/L (10-20); BUN (Urea Nitrogen) 39 mg/dL (7.0-18.7); Calc. Creatinine Clearance 15 mL/min (70-130); Calcium 7.5 mg/dL (7.8-10.44); Carbon Dioxide 21 mmol/L (22-29); Chloride 96 mmol/L (98-107); Estimated GFR 8; Glucose 150 mg/dL (70-105); Potassium 4.4 mmol/L (3.5-5.1); Sodium 130 mmol/L (136-145)
[2022-03-05] MEDS: Heparin 5,000 UNITS/ML VIAL SC SCH ×3 (08:09→21:37)
[2022-03-05] MEDS: PARoxetine 20 MG TAB PO SCH (08:09)
[2022-03-05] MEDS: Ferrous Sulfate 325 MG TAB PO SCH ×2 (08:09→18:36)
[2022-03-05] MEDS: Senokot S 8.6-50 MG TAB PO SCH ×2 (08:11→21:37)
[2022-03-05] MEDS: Carvedilol 6.25 MG TAB PO SCH ×2 (08:11→21:32)
[2022-03-05] MEDS ORDERED: Heparin 10,000 UNITS/ 10 ML VIAL ONE (08:20)
[2022-03-05] MEDS: Nicotine 14 MG PATCH TD SCH (09:25)
[2022-03-05] MEDS: Insulin Glargine 30 UNITS/0.3 ML VIAL SC SCH ×2 (09:31→21:37)
[2022-03-05] MEDS: Morphine 4 MG/ML VIAL SLOW IVP PRN (09:31)
[2022-03-05] MEDS: Calcium Carbonate 500 MG ChewTAB PO PRN (10:59)
[2022-03-05] MEDS ORDERED: Cefepime 1 GM in Sodium Chloride 0.9% 100 ML IVPB SCH (17:00)
[2022-03-05] MEDS ORDERED: Vancomycin HCl 500 MG in Sodium Chloride 0.9% 100 ML IVPB SCH (17:00)
[2022-03-05] MEDS ORDERED: Amoxicillin/Potassium Clav 875 MG TAB PO SCH (17:30)
[2022-03-05] MEDS: Rosuvastatin 10 MG TAB PO SCH (21:31)
[2022-03-05] MEDS: Amlodipine 10 MG TAB PO SCH (21:32)
[2022-03-05] MEDS: Gabapentin 300 MG CAP PO SCH (21:33)
[2022-03-06] MEDS: Albuterol Sulfate 2.5 mg/3 ml Neb NEB SCH ×3 (01:12→14:21)
[2022-03-06 06:53] LABS: #Eosinphils 0.4 thou/uL (0.0-0.7); #Lymphocytes 1.4 thou/uL (1.20-3.40); #Monocytes 0.9 thou/uL (0.11-0.59); #Neutrophils 9.8 thou/uL (1.40-6.50); %Basophils 0.1 % (0.0-1.0); %Eosinophils 3.4 % (0.0-10.0); %Lymphocytes 11.3 % (21.0-51.0); %Monocytes 6.8 % (0.0-10.0); %Neutrophils 78.4 % (42.0-75.0); Hemoglobin 8.5 g/dL (12.0-16.0); Mean Corpuscular HGB CONC 32.3 g/dL (32.0-36.0); Mean Corpuscular Volume 96.1 fL (78.0-98.0); Mean Platelet Volume 7.6 fL (7.4-10.4); Platelet Count 283 thou/uL (130-400); RBC Distribution Width 14.2 % (11.5-14.5); Red Blood Cell (RBC) Count 2.75 mill/uL (4.20-5.40); White Blood Cell (WBC) Count 12.5 thou/uL (4.8-10.8)
[2022-03-06 07:14] LABS: Anion Gap 15 mmol/L (10-20); BUN (Urea Nitrogen) 26 mg/dL (7.0-18.7); Calc. Creatinine Clearance 21 mL/min (70-130); Calcium 7.5 mg/dL (7.8-10.44); Carbon Dioxide 25 mmol/L (22-29); Chloride 97 mmol/L (98-107); Estimated GFR 12; Glucose 124 mg/dL (70-105); Magnesium 1.9 mg/dL (1.6-2.6); Potassium 3.8 mmol/L (3.5-5.1); Sodium 133 mmol/L (136-145)
[2022-03-06] MEDS: Ferrous Sulfate 325 MG TAB PO SCH (08:43)
[2022-03-06] MEDS: Heparin 5,000 UNITS/ML VIAL SC SCH (08:44)
[2022-03-06] MEDS: Carvedilol 6.25 MG TAB PO SCH (08:44)
[2022-03-06] MEDS: Insulin Glargine 30 UNITS/0.3 ML VIAL SC SCH (08:45)
[2022-03-06] MEDS: PARoxetine 20 MG TAB PO SCH (08:45)
[2022-03-06] MEDS: Senokot S 8.6-50 MG TAB PO SCH (08:45)
[2022-03-06] MEDS ORDERED: Amoxicillin/Potassium Clav 875 MG TAB PO SCH (09:00)
[2022-03-06] MEDS: Nicotine 14 MG PATCH TD SCH (10:33)
[2022-03-06] MEDS: HYDROcodone/Acetaminophen 5/325 mg Tablet PO PRN (10:36)
[2022-03-06 15:09] VITALS: BP 136/58; TEMP 98.5
[2022-03-06] MEDS: Epoetin (ESRD) 10,000 UNITS/ML VIAL SC SCH (16:10)
== END 2022-03-06 16:05 | disposition home health service (06) | DRG 853 ==
LOC: T4-A 07:32
PROVIDERS: ADMIT Hospitalist; ATTEND Hospitalist
PROC: 3E03329 Introduction of Other Anti-infective into Peripheral Vein, Percutaneous Approach (ICD-10-PCS; principal; 2022-02-26)
PROC: 02HV33Z Insertion of Infusion Device into Superior Vena Cava, Percutaneous Approach (ICD-10-PCS; 2022-02-26)
PROC: B548ZZA Ultrasonography of Superior Vena Cava, Guidance (ICD-10-PCS; 2022-02-26)
PROC: 30233N1 Transfusion of Nonautologous Red Blood Cells into Peripheral Vein, Percutaneous Approach (ICD-10-PCS; 2022-02-26)
PROC: 5A1D70Z Performance of Urinary Filtration, Intermittent, Less than 6 Hours Per Day (ICD-10-PCS; 2022-02-26)
PROC: 0JBC0ZZ Excision of Pelvic Region Subcutaneous Tissue and Fascia, Open Approach (ICD-10-PCS; 2022-02-26)
PROC: 031B0ZF Bypass Right Radial Artery to Lower Arm Vein, Open Approach (ICD-10-PCS; 2022-02-28)
PROC: 0JBC0ZZ Excision of Pelvic Region Subcutaneous Tissue and Fascia, Open Approach (ICD-10-PCS; 2022-02-28)
DX: A41.4 Sepsis due to anaerobes (principal); M72.6 Necrotizing fasciitis; N18.6 End stage renal disease; I13.2 Hypertensive heart and chronic kidney disease with heart failure and with stage 5 chronic kidney disease, or end stage renal disease; E87.1 Hypo-osmolality and hyponatremia; L02.215 Cutaneous abscess of perineum; Z20.822 Contact with and (suspected) exposure to COVID-19; I50.9 Heart failure, unspecified; E78.5 Hyperlipidemia, unspecified; F31.9 Bipolar disorder, unspecified; N76.89 Other specified inflammation of vagina and vulva; F17.210 Nicotine dependence, cigarettes, uncomplicated; D63.1 Anemia in chronic kidney disease; E11.22 Type 2 diabetes mellitus with diabetic chronic kidney disease; J44.9 Chronic obstructive pulmonary disease, unspecified; I25.5 Ischemic cardiomyopathy; E11.65 Type 2 diabetes mellitus with hyperglycemia; E87.6 Hypokalemia; E83.51 Hypocalcemia; Z99.2 Dependence on renal dialysis; Z88.8 Allergy status to other drugs, medicaments and biological substances; Z79.899 Other long term (current) drug therapy; Z79.84 Long term (current) use of oral hypoglycemic drugs
CPT/HCPCS: 36415; 36416; 36430; 71045; 80048; 80053; 80061; 80076; 80202; 83036; 83605; 83735; 83970; 84100; 84443; 85025; 86706; 86850; 86900; 86901; 87070; 87205; 87340; 90935; 93970; 94640; 97139; C1751; C1776; G0257; J0171; J0692; J1642; J1644; J1650; J1815; J1885; J2001; J2270; J2370; J2405; J2704; J2720; J2765; J3010; J3370; J3490; J7050; J7611; J7620; P9016; Q4081; S0020; S0028; U0002; U0003; U0005

== ENCOUNTER 2022-03-09 10:59 | Emergency (ER) | payer OTHER ==
[2022-03-09 12:44] LABS: #Eosinphils 0.2 thou/uL (0.0-0.7); #Lymphocytes 1.2 thou/uL (1.20-3.40); #Monocytes 0.9 thou/uL (0.11-0.59); #Neutrophils 7.7 thou/uL (1.40-6.50); %Basophils 0.4 % (0.0-1.0); %Eosinophils 2.4 % (0.0-10.0); %Lymphocytes 11.9 % (21.0-51.0); %Monocytes 8.5 % (0.0-10.0); %Neutrophils 76.8 % (42.0-75.0); Hemoglobin 8.5 g/dL (12.0-16.0); Mean Corpuscular HGB CONC 32.1 g/dL (32.0-36.0); Mean Corpuscular Hemoglobin 31.1 pg (27.0-31.0); Mean Corpuscular Volume 96.9 fL (78.0-98.0); Mean Platelet Volume 7.3 fL (7.4-10.4); Platelet Count 322 thou/uL (130-400); RBC Distribution Width 13.5 % (11.5-14.5); Red Blood Cell (RBC) Count 2.72 mill/uL (4.20-5.40)
[2022-03-09 13:11] LABS: ALT (SGPT) 12 U/L (8-55); AST (SGOT) 15 U/L (5-34); Albumin 2.4 g/dL (3.5-5.0); Alkaline Phosphatase 310 U/L (40-110); Anion Gap 16 mmol/L (10-20); BUN (Urea Nitrogen) 26 mg/dL (7.0-18.7); Bilirubin, Total 0.4 mg/dL (0.2-1.2); Calc. Creatinine Clearance 0 mL/min (70-130); Calcium 7.7 mg/dL (7.8-10.44); Carbon Dioxide 28 mmol/L (22-29); Chloride 94 mmol/L (98-107); Estimated GFR 8; Globulin 3.7 g/dL (2.4-3.5); Glucose 401 mg/dL (70-105); Potassium 4.6 mmol/L (3.5-5.1); Protein, Total 6.1 g/dL (6.0-8.3); Sodium 133 mmol/L (136-145)
== END 2022-03-09 15:00 | disposition home or self-care (01) ==
LOC: ERS 10:59
DX: Z48.00 Encounter for change or removal of nonsurgical wound dressing (principal); E11.22 Type 2 diabetes mellitus with diabetic chronic kidney disease; I13.2 Hypertensive heart and chronic kidney disease with heart failure and with stage 5 chronic kidney disease, or end stage renal disease; N18.6 End stage renal disease; I50.9 Heart failure, unspecified; Z79.4 Long term (current) use of insulin; Z99.2 Dependence on renal dialysis; Z87.891 Personal history of nicotine dependence; Z79.899 Other long term (current) drug therapy
CPT/HCPCS: 36415; 71045; 80053; 85025

== ENCOUNTER 2022-07-05 07:18 | Day surgery (SDC) | payer OTHER, MEDICAID ==
[2022-07-04 14:09] VITALS: BMI 32.1
[2022-07-05 09:15] VITALS: TEMP 97.8
[2022-07-05 09:39] VITALS: BP 165/71
[2022-07-05] MEDS ORDERED: Iopamidol 300 61% 100 ML VIAL FS ONE (11:48)
== END 2022-07-05 10:05 | disposition home or self-care (01) ==
LOC: SPEC 07:18
PROVIDERS: ATTEND Specialist
PROC: B51W1ZZ Fluoroscopy of Dialysis Shunt/Fistula using Low Osmolar Contrast (ICD-10-PCS; principal; 2022-07-05)
DX: T82.590A Other mechanical complication of surgically created arteriovenous fistula, initial encounter (principal); I13.2 Hypertensive heart and chronic kidney disease with heart failure and with stage 5 chronic kidney disease, or end stage renal disease; E11.22 Type 2 diabetes mellitus with diabetic chronic kidney disease; N18.6 End stage renal disease; I50.9 Heart failure, unspecified; D63.1 Anemia in chronic kidney disease; J44.9 Chronic obstructive pulmonary disease, unspecified; E66.9 Obesity, unspecified; Z68.32 Body mass index [BMI] 32.0-32.9, adult; Z87.891 Personal history of nicotine dependence; Z79.4 Long term (current) use of insulin; Z79.82 Long term (current) use of aspirin; Z79.84 Long term (current) use of oral hypoglycemic drugs; Z79.899 Other long term (current) drug therapy; Z88.8 Allergy status to other drugs, medicaments and biological substances; Z99.2 Dependence on renal dialysis; Y81.3 Surgical instruments, materials and general- and plastic-surgery devices (including sutures) associated with adverse incidents
CPT/HCPCS: 36901; Q9967

== ENCOUNTER 2022-07-19 07:07 | Outpatient (CLI) | payer OTHER | END 2022-07-19 07:08 | disposition home or self-care (01) | LOC: ULT 07:07 | PROVIDERS: ATTEND Specialist | DX: U07.1 COVID-19 (principal); N18.6 End stage renal disease | CPT/HCPCS: 76705; U0003; U0005 ==

== ENCOUNTER 2023-07-04 13:47 | Observation (INO) | payer OTHER, MEDICAID ==
[2023-07-04] MEDS ORDERED: Loperamide HCl 2 MG CAP ONE (15:50)
[2023-07-04] MEDS ORDERED: hydrALAZINE 20 MG/ML VIAL ONE (15:50)
[2023-07-04 16:03] LABS: Bilirubin Negative (Negative); Blood, Urine 1+ (Negative); CAUTI Indications for Culture Dysuria,urgency,freq; Clarity Clear (Clear); Glucose, Urine (Dipstick) Greater than 1000 mg/dL (Negative); Ketone, Urine Negative (Negative); Leukocyte Negative Leu/uL (Negative); Nitrite Negative (Negative); Protein, Urine (Dipstick) 300 mg/dL (Neg-Trace); Urobilinogen Normal mg/dL (Less than 2); WBC/HPF 0-3 HPF (0-3); pH, Urine 6.5 (5.0-9.0)
[2023-07-04 16:08] LABS: Bacteria/HPF 1+ HPF (None Seen)
[2023-07-04 16:09] LABS: Urine Culture Reflex No No
[2023-07-04 16:28] LABS: #Basophils 0.1 thou/uL (0.0-0.2); #Eosinphils 0.6 thou/uL (0.0-0.7); #Monocytes 0.4 thou/uL (0.11-0.59); #Neutrophils 5.2 thou/uL (1.40-6.50); %Basophils 0.6 % (0.0-1.0); %Eosinophils 8.2 % (0.0-10.0); %Lymphocytes 19.4 % (21.0-51.0); %Monocytes 5.4 % (0.0-10.0); Hematocrit 31.3 % (36.0-47.0); Hemoglobin 10.8 g/dL (12.0-16.0); Mean Corpuscular HGB CONC 34.5 g/dL (32.0-36.0); Mean Corpuscular Hemoglobin 32.6 pg (27.0-31.0); Mean Corpuscular Volume 94.6 fl (78.0-98.0); Mean Platelet Volume 11.7 fL (7.4-10.4); Platelet Count 159 10x3/uL (130-400); RBC Distribution Width 14.6 % (11.5-14.5); Red Blood Cell (RBC) Count 3.31 mill/uL (4.20-5.40); White Blood Cell (WBC) Count 7.8 10x3/uL (4.8-10.8)
[2023-07-04 16:52] LABS: ALT (SGPT) 13 U/L (8-55); AST (SGOT) 12 U/L (5-34); Albumin 3.6 g/dL (3.5-5.0); Alkaline Phosphatase 68 U/L (40-110); Anion Gap 15 mmol/L (10-20); BUN (Urea Nitrogen) 56 mg/dL (7.0-18.7); Bilirubin, Total 0.4 mg/dL (0.2-1.2); Calc. Creatinine Clearance 0 mL/min (70-130); Calcium 8.9 mg/dL (7.8-10.44); Carbon Dioxide 25 mmol/L (22-29); Chloride 97 mmol/L (98-107); Estimated GFR 6; Globulin 3.1 g/dL (2.4-3.5); Potassium 4.4 mmol/L (3.5-5.1); Protein, Total 6.7 g/dL (6.0-8.3); Sodium 133 mmol/L (136-145)
[2023-07-04 16:57] LABS: Glucose 594 mg/dL (70-105)
[2023-07-04] MEDS ORDERED: Ondansetron PF 4 MG/2 ML Vial IVP PRN (18:31)
[2023-07-04] MEDS ORDERED: Insulin Regular 300 UNITS/3 ML VIAL SC PRN (18:31)
[2023-07-04] MEDS ORDERED: Dextrose 50% Abboject 50 ML SYRINGE SLOW IVP PRN (18:31)
[2023-07-04] MEDS ORDERED: HumaLOG 300 UNITS/3 ML VIAL SC PRN (18:31)
[2023-07-04] MEDS ORDERED: Glucagon 1 MG/ML KIT IM PRN (18:31)
[2023-07-04] MEDS ORDERED: Dextrose 5% in Water 1,000 ML IV PRN (18:31)
[2023-07-04] MEDS ORDERED: Nicotine 14 MG PATCH TD PRN (18:31)
[2023-07-04] MEDS ORDERED: Ondansetron ODT 4 MG TAB PO PRN (18:31)
[2023-07-04] MEDS ORDERED: hydrALAZINE 20 MG/ML VIAL SLOW IVP PRN (18:31)
[2023-07-04] MEDS ORDERED: Ipratropium/Albuterol 3 ML NEB NEB PRN (18:39)
[2023-07-04] MEDS ORDERED: Cyclobenzaprine 10 MG TAB PO PRN (22:03)
[2023-07-04] MEDS ORDERED: Melatonin 3 MG TAB PO PRN (22:04)
[2023-07-04] MEDS: cloNIDine 0.1 MG TAB PO SCH (22:08)
[2023-07-04] MEDS: Acetaminophen 325 MG TAB PO PRN (22:10)
[2023-07-04] MEDS ORDERED: DULoxetine 30 MG CAP PO SCH ×2 (22:15→23:00)
[2023-07-04] MEDS ORDERED: Cyclobenzaprine 10 MG TAB PO SCH (23:00)
[2023-07-04] MEDS ORDERED: DULoxetine 20 MG CAP PO SCH (23:00)
[2023-07-05] MEDS ORDERED: hydrALAZINE 20 MG/ML VIAL SLOW IVP SCH (01:00)
[2023-07-05 02:31] VITALS: BMI 29.5
[2023-07-05] MEDS: Acetaminophen 325 MG TAB PO PRN ×2 (04:01→12:43)
[2023-07-05] MEDS ORDERED: CEFAZOLIN 2 GM in Sodium Chloride 0.9% 100 ML IVPB SCH (06:00)
[2023-07-05 06:14] LABS: #Basophils 0.1 thou/uL (0.0-0.2); #Eosinphils 0.7 thou/uL (0.0-0.7); #Monocytes 0.6 thou/uL (0.11-0.59); #Neutrophils 6.9 thou/uL (1.40-6.50); %Basophils 0.9 % (0.0-1.0); %Lymphocytes 16.2 % (21.0-51.0); %Monocytes 5.7 % (0.0-10.0); %Neutrophils 69.9 % (42.0-75.0); Hematocrit 31.2 % (36.0-47.0); Hemoglobin 10.4 g/dL (12.0-16.0); Mean Corpuscular HGB CONC 33.3 g/dL (32.0-36.0); Mean Corpuscular Hemoglobin 31.5 pg (27.0-31.0); Mean Corpuscular Volume 94.5 fl (78.0-98.0); Mean Platelet Volume 11.6 fL (7.4-10.4); Platelet Count 167 10x3/uL (130-400); RBC Distribution Width 14.5 % (11.5-14.5); White Blood Cell (WBC) Count 9.8 10x3/uL (4.8-10.8)
[2023-07-05 06:43] LABS: Anion Gap 15 mmol/L (10-20); BUN (Urea Nitrogen) 63 mg/dL (7.0-18.7); Calc. Creatinine Clearance 11 mL/min (70-130); Calcium 8.8 mg/dL (7.8-10.44); Carbon Dioxide 21 mmol/L (22-29); Chloride 102 mmol/L (98-107); Estimated GFR 6; Glucose 291 mg/dL (70-105); Potassium 4.6 mmol/L (3.5-5.1); Sodium 133 mmol/L (136-145)
[2023-07-05] MEDS ORDERED: Epoetin (ESRD) 20,000 UNITS/ML MDV SC SCH (06:45)
[2023-07-05] MEDS ORDERED: Losartan 25 MG TAB PO SCH (09:00)
[2023-07-05] MEDS ORDERED: PROPOFOL 20 ML ONE (09:17)
[2023-07-05] MEDS ORDERED: Bupivacaine 0.25% HCL 30 ML VIAL ONE (09:17)
[2023-07-05] MEDS ORDERED: EPINEPHrine 1 MG/ML VIAL ONE (09:17)
[2023-07-05] MEDS ORDERED: fentaNYL PF 100 MCG/2 ML SYRINGE ONE (09:17)
[2023-07-05] MEDS ORDERED: Heparin 10,000 UNITS/ 10 ML VIAL ONE (09:17)
[2023-07-05] MEDS ORDERED: Lidocaine 2% PF 5 ML VIAL ONE (09:21)
[2023-07-05] MEDS ORDERED: Ondansetron PF 4 MG/2 ML Vial ONE (09:24)
[2023-07-05] MEDS ORDERED: CEFAZOLIN 2 GM VIAL ONE (09:26)
[2023-07-05] MEDS ORDERED: Sodium Chloride 0.9% 100 ML ONE (09:26)
[2023-07-05] MEDS ORDERED: ePHEDrine Sulfate 50 MG/10 ML VIAL ONE (09:52)
[2023-07-05] MEDS ORDERED: PHENYLEPHRINE-NS 100 MCG/ML 10 ML SYRINGE ONE (10:01)
[2023-07-05] MEDS ORDERED: EPOETIN ALFA-EPBX (ESRD) 10,000 UNITS/ML VIAL SC SCH (12:00)
[2023-07-05 12:03] LABS: HBSAg Index 0.17 S/CO (0-0.99); Hep B Core Total Ab Non-Reactive (NonReactive); Hep B Core Total Index 0.11 S/CO (0-0.79); Hep B Surf Ag Non-Reactive S/CO (NonReactive); Hep C IgG Ab Non-Reactive S/CO (NonReactive); Hep C Index 0.07 S/CO (0-0.79)
[2023-07-05 12:06] LABS: HBSAB Concentration 14.35 mIU/mL; Hep B Surf AB Reactive (NonReactive)
[2023-07-05] MEDS: cloNIDine 0.1 MG TAB PO SCH (14:40)
[2023-07-05 15:15] VITALS: BP 136/67; TEMP 98.9
[2023-07-05] MEDS ORDERED: Cyclobenzaprine 10 MG TAB PO PRN (20:00)
[2023-07-05] MEDS ORDERED: DULoxetine 20 MG CAP PO SCH (21:00)
[2023-07-05] MEDS ORDERED: DULoxetine 30 MG CAP PO SCH (21:00)
== END 2023-07-05 17:02 | disposition home or self-care (01) ==
LOC: ERS 13:47 → 2SW 18:12
PROVIDERS: ADMIT Internal Medicine; ATTEND Family Medicine
PROC: 05HM33Z Insertion of Infusion Device into Right Internal Jugular Vein, Percutaneous Approach (ICD-10-PCS; principal; 2023-07-05)
DX: T82.41XA Breakdown (mechanical) of vascular dialysis catheter, initial encounter (principal); I13.2 Hypertensive heart and chronic kidney disease with heart failure and with stage 5 chronic kidney disease, or end stage renal disease; E11.22 Type 2 diabetes mellitus with diabetic chronic kidney disease; N18.6 End stage renal disease; D63.1 Anemia in chronic kidney disease; E11.65 Type 2 diabetes mellitus with hyperglycemia; I50.9 Heart failure, unspecified; J45.909 Unspecified asthma, uncomplicated; F17.210 Nicotine dependence, cigarettes, uncomplicated; Z98.890 Other specified postprocedural states; Z88.8 Allergy status to other drugs, medicaments and biological substances; Z79.84 Long term (current) use of oral hypoglycemic drugs; Z79.899 Other long term (current) drug therapy; Z79.4 Long term (current) use of insulin; Y83.8 Other surgical procedures as the cause of abnormal reaction of the patient, or of later complication, without mention of misadventure at the time of the procedure
CPT/HCPCS: 36581; 71045 ×2; 72100; 80048; 80053; 81001; 82962 ×2; 83880; 85025 ×2; 86704; 96374; 99284; C1752; J0171; J0360 ×2; Q5105; 36415; 36416; 90935; 96376; G0257; G0378; J1644; J1815; J2001; J2405; J2704; J3490; S0020

== ENCOUNTER 2024-04-13 14:52 | Inpatient (IN) | payer OTHER, MEDICAID ==
[~2024-04-13 14:52] MED LIST: Iopamidol-370 76% 500 ML MDV (1 ML CHARGE) ONE
[2024-04-13 15:32] LABS: #Basophils 0.04 10x3/uL (0.0-0.2); %Basophils 0.3 % (0.0-1.0); %Eosinophils 0.3 % (0.0-10.0); %Lymphocytes 5.6 % (21.0-51.0); %Monocytes 5.7 % (0.0-10.0); %Neutrophils 86.3 % (42.0-75.0); Hematocrit 29.3 % (36.0-47.0); Hemoglobin 10.2 g/dL (12.0-16.0); Mean Corpuscular HGB CONC 34.8 g/dL (32.0-36.0); Mean Corpuscular Hemoglobin 30.7 pg (27.0-31.0); Mean Corpuscular Volume 88.3 fL (78.0-98.0); Mean Platelet Volume 12.4 fL (7.4-10.4); Platelet Count 158 10x3/uL (130-400); RBC Distribution Width 14.1 % (11.5-14.5); Red Blood Cell (RBC) Count 3.32 mill/uL (4.20-5.40)
[2024-04-13 16:12] LABS: ALT (SGPT) 9 U/L (8-55); AST (SGOT) 12 U/L (5-34); Albumin 2.6 g/dL (3.5-5.0); Alkaline Phosphatase 73 U/L (40-110); Anion Gap 20 mmol/L (10-20); BUN (Urea Nitrogen) 52 mg/dL (7.0-18.7); Bilirubin, Total 0.4 mg/dL (0.2-1.2); Calc. Creatinine Clearance 0 mL/min (70-130); Calcium 9.8 mg/dL (7.8-10.44); Carbon Dioxide 23 mmol/L (22-29); Chloride 88 mmol/L (98-107); Estimated GFR 5; Globulin 3.8 g/dL (2.4-3.5); Glucose 441 mg/dL (70-105); Potassium 4.2 mmol/L (3.5-5.1); Protein, Total 6.4 g/dL (6.0-8.3); Sodium 127 mmol/L (136-145)
[2024-04-13] MEDS ORDERED: Ondansetron PF 4 MG/2 ML Vial ONE (16:40)
[2024-04-13] MEDS ORDERED: Morphine 4 MG/ML VIAL ONE ×2 (16:40→23:28)
[2024-04-13] MEDS ORDERED: Piperacillin/Tazobactam 4.5 GM VIAL ONE (16:40)
[2024-04-13] MEDS ORDERED: Sodium Chloride 0.9% 0 ML ONE (16:41)
[2024-04-13 16:46] LABS: BHCG - Serum Negative (NEGATIVE); Pregs Control Background? CLEAR/WHITE (CLR/WHITE); Pregs Control Bar Appear? YES (CONTROL BAR)
[2024-04-13 19:41] LABS: Actual Bicarbonate (HCO3v) 24.5 mEq/L (22-28); Analyzer IN Cardio ER; Base Excess -0.7 mEq/L (-2.0 to +3.0); Calcium, Ionized (venous) 1.11 mmol/L (1.16-1.32); Chloride (VBG) 92 mmol/L (98-106); Hematocrit-VBG 30 % (36.0-47.0); Hemoglobin (Hb) 10.2 g/dL (11.7-16.0); Potassium (VBG) 4.09 mmol/L (3.70-5.30); Sodium 127 mmol/L (133-146); pH (venous) 7.378 (7.32-7.43)
[2024-04-13] MEDS ORDERED: Bupivacaine 0.25% HCL 30 ML VIAL ONE (20:59)
[2024-04-13] MEDS ORDERED: EPINEPHrine 1 MG/ML VIAL ONE (20:59)
[2024-04-13] MEDS ORDERED: Cefepime 1 GM in Sodium Chloride 0.9% 100 ML IVPB SCH (21:00)
[2024-04-13] MEDS ORDERED: Cefepime 1 GM VIAL ONE ×2 (21:03→22:20)
[2024-04-13] MEDS ORDERED: Sodium Chloride 0.9% 100 ML ONE ×2 (21:04→22:20)
[2024-04-13] MEDS ORDERED: Midazolam HCl 2 mg/2 ml Vial ONE (21:12)
[2024-04-13] MEDS ORDERED: PROPOFOL 20 ML ONE (21:12)
[2024-04-13] MEDS ORDERED: fentaNYL PF 100 MCG/2 ML SYRINGE ONE (21:13)
[2024-04-13] MEDS ORDERED: Ketamine In 0.9 % NaCl 50 MG/5 ML SYRINGE ONE (21:14)
[2024-04-13] MEDS ORDERED: Acetaminophen 325 MG TAB PO PRN (21:34)
[2024-04-13] MEDS ORDERED: Dextrose 50% Abboject 50 ML SYRINGE SLOW IVP PRN (21:36)
[2024-04-13] MEDS ORDERED: Dextrose 5% in Water 1,000 ML IV PRN (21:36)
[2024-04-13] MEDS ORDERED: Glucagon 1 MG/ML KIT IM PRN (21:36)
[2024-04-13] MEDS ORDERED: Ipratropium/Albuterol 3 ML NEB EZPAP PRN (21:53)
[2024-04-13] MEDS ORDERED: LevoFLOXacin 750 mg/D5W 150 ml Premix Bag ONE (21:56)
[2024-04-13] MEDS ORDERED: Lidocaine 1% PF 5 ML VIAL ONE (22:30)
[2024-04-13] MEDS ORDERED: Rocuronium Bromide 10 MG/ML (10ML VIAL) ONE (22:30)
[2024-04-13] MEDS ORDERED: SUGAMMADEX SODIUM 200 MG/2 ML VIAL ONE (22:42)
[2024-04-13] MEDS ORDERED: ePHEDrine Sulfate 50 MG/10 ML VIAL ONE (22:47)
[2024-04-13] MEDS ORDERED: fentaNYL 50 mcg/mL 1 mL Vial ONE (23:33)
[2024-04-13] MEDS ORDERED: Vancomycin Dose by Levels Sliding Scale (Wt 71-99) FS SCH (23:45)
[2024-04-13] MEDS ORDERED: Vancomycin Diaylsis Sliding Scale (Wt 71-99) FS SCH (23:45)
[2024-04-14] MEDS ORDERED: Morphine 4 MG/ML VIAL SLOW IVP PRN (01:41)
[2024-04-14 01:49] VITALS: BMI 31.5
[2024-04-14] MEDS: Vancomycin (BATCH) 1.5 GM in Premix 1 BAG IVPB SCH (01:49)
[2024-04-14] MEDS: HYDROcodone/Acetaminophen 5/325 mg Tablet PO PRN (02:40)
[2024-04-14] MEDS: Piperacillin/Tazobactam 3.375 GM in Sodium Chloride 0.9% 100 ML IVPB SCH ×2 (02:43→03:27)
[2024-04-14] MEDS: Ondansetron PF 4 MG/2 ML Vial IVP PRN (02:43)
[2024-04-14 06:37] LABS: #Basophils 0.03 10x3/uL (0.0-0.2); #Eosinophils Less than 0.03 10x3/uL (0.0-0.7); %Basophils 0.2 % (0.0-1.0); %Eosinophils 0.2 % (0.0-10.0); %Lymphocytes 5.9 % (21.0-51.0); %Monocytes 8.3 % (0.0-10.0); Hematocrit 25.7 % (36.0-47.0); Hemoglobin 8.5 g/dL (12.0-16.0); Mean Corpuscular HGB CONC 33.1 g/dL (32.0-36.0); Mean Corpuscular Hemoglobin 30.5 pg (27.0-31.0); Mean Corpuscular Volume 92.1 fL (78.0-98.0); Mean Platelet Volume 12.2 fL (7.4-10.4); Platelet Count 127 10x3/uL (130-400); RBC Distribution Width 14.4 % (11.5-14.5); Red Blood Cell (RBC) Count 2.79 mill/uL (4.20-5.40)
[2024-04-14 07:06] LABS: Anion Gap 19 mmol/L (10-20); BUN (Urea Nitrogen) 56 mg/dL (7.0-18.7); Calc. Creatinine Clearance 10 mL/min (70-130); Calcium 8.7 mg/dL (7.8-10.44); Carbon Dioxide 19 mmol/L (22-29); Chloride 97 mmol/L (98-107); Estimated GFR 5; Glucose 358 mg/dL (70-105); Potassium 4.7 mmol/L (3.5-5.1); Sodium 130 mmol/L (136-145)
[2024-04-14] MEDS ORDERED: EPOETIN ALFA-EPBX (ESRD) 10,000 UNITS/ML VIAL SC SCH (09:00)
[2024-04-14] MEDS ORDERED: Iopamidol-370 76% 500 ML MDV (1 ML CHARGE) ONE (10:27)
[2024-04-14] MEDS ORDERED: Heparin 10,000 UNITS/ 10 ML VIAL ONE (10:37)
[2024-04-14 12:03] VITALS: BMI 31.5
[2024-04-14] MEDS ORDERED: Insulin Regular, Human 100 UNIT/ML 10 ML VIAL ONE (12:20)
[2024-04-14] MEDS ORDERED: Midazolam HCl 2 mg/2 ml Vial ONE (13:30)
[2024-04-14] MEDS ORDERED: PROPOFOL 20 ML ONE (13:30)
[2024-04-14] MEDS ORDERED: Ketamine In 0.9 % NaCl 50 MG/5 ML SYRINGE ONE (13:30)
[2024-04-14] MEDS ORDERED: fentaNYL PF 100 MCG/2 ML SYRINGE ONE (13:30)
[2024-04-14] MEDS ORDERED: Dexamethasone 4 mg/ml Vial ONE (14:05)
[2024-04-14] MEDS ORDERED: Ondansetron PF 4 MG/2 ML Vial ONE (14:05)
[2024-04-14] MEDS ORDERED: SUGAMMADEX SODIUM 200 MG/2 ML VIAL ONE (14:29)
[2024-04-14] MEDS: Insulin Glargine 30 UNITS/0.3 ML VIAL SC SCH (20:57)
[2024-04-14] MEDS: Insulin Lispro 100 UNIT/ML 10 ML VIAL SC PRN (20:57)
[2024-04-14] MEDS: Cyclobenzaprine 10 MG TAB PO SCH (22:13)
[2024-04-14] MEDS: cloNIDine 0.1 MG TAB PO SCH (22:13)
[2024-04-14] MEDS: DULoxetine 60 MG CAP PO SCH (22:13)
[2024-04-14] MEDS: Carvedilol 25 MG TAB PO SCH (22:13)
[2024-04-14] MEDS: Gabapentin 300 MG CAP PO SCH (22:13)
[2024-04-14] MEDS: EPOETIN ALFA-EPBX (ESRD) 10,000 UNITS/ML VIAL SC SCH (22:14)
[2024-04-15 01:17] LABS: Vancomycin, Trough 14.9 ug/mL
[2024-04-15] MEDS: Vancomycin 1 GM in Premix 1 BAG IVPB SCH (02:43)
[2024-04-15] MEDS: Insulin Lispro 100 UNIT/ML 10 ML VIAL SC PRN (04:36)
[2024-04-15 06:00] LABS: #Basophils Less than 0.03 10x3/uL (0.0-0.2); #Eosinophils Less than 0.03 10x3/uL (0.0-0.7); %Basophils 0.2 % (0.0-1.0); %Lymphocytes 5.7 % (21.0-51.0); %Monocytes 6.9 % (0.0-10.0); %Neutrophils 86.6 % (42.0-75.0); Hematocrit 26.3 % (36.0-47.0); Hemoglobin 8.7 g/dL (12.0-16.0); Mean Corpuscular HGB CONC 33.1 g/dL (32.0-36.0); Mean Corpuscular Hemoglobin 30.1 pg (27.0-31.0); Mean Platelet Volume 12.4 fL (7.4-10.4); Platelet Count 154 10x3/uL (130-400); RBC Distribution Width 14.4 % (11.5-14.5); Red Blood Cell (RBC) Count 2.89 mill/uL (4.20-5.40)
[2024-04-15 06:02] LABS: Glucose 701 mg/dL (70-105)
[2024-04-15 06:15] LABS: Anion Gap 16 mmol/L (10-20); BUN (Urea Nitrogen) 37 mg/dL (7.0-18.7); Calc. Creatinine Clearance 15 mL/min (70-130); Calcium 8.2 mg/dL (7.8-10.44); Carbon Dioxide 22 mmol/L (22-29); Chloride 92 mmol/L (98-107); Estimated GFR 8; Glucose 701 mg/dL (70-105); Potassium 3.9 mmol/L (3.5-5.1); Sodium 126 mmol/L (136-145)
[2024-04-15] MEDS: FLU (Fluarix Triv) TS24-25(6MOS UP)/PF 45 MCG/0.5 ML Syringe IM ONE (06:46)
[2024-04-15] MEDS: Insulin Lispro 100 UNIT/ML 10 ML VIAL SC SCH (07:00)
[2024-04-15] MEDS: Morphine 4 MG/ML VIAL SLOW IVP SCH (09:56)
[2024-04-15 10:26] LABS: Anion Gap 18 mmol/L (10-20); BUN (Urea Nitrogen) 40 mg/dL (7.0-18.7); Calc. Creatinine Clearance 15 mL/min (70-130); Calcium 9.1 mg/dL (7.8-10.44); Carbon Dioxide 22 mmol/L (22-29); Chloride 99 mmol/L (98-107); Estimated GFR 8; Glucose 228 mg/dL (70-105); Potassium 3.7 mmol/L (3.5-5.1); Sodium 135 mmol/L (136-145)
[2024-04-15] MEDS: HumuLIN 70/30 100 Unit/ml 10 ml Vial SC SCH (12:26)
[2024-04-15] MEDS: Gabapentin 100 MG CAP PO SCH (15:04)
[2024-04-15] MEDS: Carvedilol 25 MG TAB PO SCH (20:39)
[2024-04-15] MEDS: DULoxetine 60 MG CAP PO SCH (20:39)
[2024-04-16] MEDS: Cyclobenzaprine 10 MG TAB PO PRN (05:53)
[2024-04-16 06:01] LABS: #Basophils 0.05 10x3/uL (0.0-0.2); %Basophils 0.5 % (0.0-1.0); %Eosinophils 1.8 % (0.0-10.0); %Lymphocytes 22.1 % (21.0-51.0); %Monocytes 9.5 % (0.0-10.0); %Neutrophils 64.9 % (42.0-75.0); Hematocrit 27.7 % (36.0-47.0); Mean Corpuscular HGB CONC 32.5 g/dL (32.0-36.0); Mean Corpuscular Volume 92.3 fL (78.0-98.0); Mean Platelet Volume 11.7 fL (7.4-10.4); Platelet Count 181 10x3/uL (130-400); RBC Distribution Width 14.6 % (11.5-14.5)
[2024-04-16 06:55] LABS: Anion Gap 16 mmol/L (10-20); BUN (Urea Nitrogen) 52 mg/dL (7.0-18.7); Calc. Creatinine Clearance 13 mL/min (70-130); Calcium 8.6 mg/dL (7.8-10.44); Carbon Dioxide 26 mmol/L (22-29); Chloride 97 mmol/L (98-107); Estimated GFR 6; Glucose 295 mg/dL (70-105); Sodium 135 mmol/L (136-145)
[2024-04-16 06:55] LABS: Phosphorus 6.3 mg/dL (2.3-4.7)
[2024-04-16 07:38] LABS: Vancomycin, Trough 29.9 ug/mL
[2024-04-16] MEDS: Sevelamer Carbonate 800 MG TAB PO SCH (09:08)
[2024-04-16] MEDS: Insulin Glargine 30 UNITS/0.3 ML VIAL SC SCH (09:09)
[2024-04-16] MEDS: Losartan 25 MG TAB PO SCH (09:09)
[2024-04-16] MEDS ORDERED: Heparin 10,000 UNITS/ 10 ML VIAL ONE (10:13)
[2024-04-16] MEDS: cloNIDine 0.1 MG TAB PO SCH (13:45)
[2024-04-16] MEDS: hydrALAZINE 25 MG TAB PO PRN (17:17)
[2024-04-16] MEDS: Morphine 4 MG/ML VIAL SLOW IVP PRN (19:08)
[2024-04-17] MEDS: Calcium Carbonate 500 MG ChewTAB PO SCH (22:11)
[2024-04-18 06:00] LABS: #Basophils 0.09 10x3/uL (0.0-0.2); %Basophils 0.6 % (0.0-1.0); %Eosinophils 6.1 % (0.0-10.0); %Lymphocytes 18.4 % (21.0-51.0); %Monocytes 8.8 % (0.0-10.0); Hematocrit 30.6 % (36.0-47.0); Hemoglobin 9.9 g/dL (12.0-16.0); Mean Corpuscular HGB CONC 32.4 g/dL (32.0-36.0); Mean Corpuscular Hemoglobin 30.5 pg (27.0-31.0); Mean Corpuscular Volume 94.2 fL (78.0-98.0); Platelet Count 209 10x3/uL (130-400); RBC Distribution Width 14.5 % (11.5-14.5); Red Blood Cell (RBC) Count 3.25 mill/uL (4.20-5.40)
[2024-04-18 06:13] LABS: Anion Gap 16 mmol/L (10-20); BUN (Urea Nitrogen) 44 mg/dL (7.0-18.7); Calc. Creatinine Clearance 13 mL/min (70-130); Calcium 8.7 mg/dL (7.8-10.44); Carbon Dioxide 24 mmol/L (22-29); Chloride 96 mmol/L (98-107); Estimated GFR 7; Glucose 203 mg/dL (70-105); Potassium 4.6 mmol/L (3.5-5.1); Sodium 131 mmol/L (136-145)
[2024-04-18] MEDS ORDERED: Heparin 10,000 UNITS/ 10 ML VIAL ONE (10:16)
[2024-04-18] MEDS: Calcium Carbonate 500 MG ChewTAB PO PRN (14:25)
[2024-04-18] MEDS: cefTRIAXone\\ROCEPHIN 2 GM in Sodium Chloride 0.9% 100 ML IVPB SCH (14:26)
[2024-04-18] MEDS: cefTRIAXone Sodium 2,000 MG in Syringe 0 ML IVPB SCH (14:37)
[2024-04-18] MEDS: metroNIDAZOLE 500 MG in Premix 1 BAG IVPB SCH (17:24)
[2024-04-18] MEDS: Heparin 5,000 UNITS/ML VIAL SC SCH (19:38)
[2024-04-19 06:09] LABS: #Basophils 0.07 10x3/uL (0.0-0.2); %Basophils 0.5 % (0.0-1.0); %Eosinophils 6.8 % (0.0-10.0); %Lymphocytes 15.5 % (21.0-51.0); %Monocytes 7.9 % (0.0-10.0); %Neutrophils 65.1 % (42.0-75.0); Hemoglobin 9.6 g/dL (12.0-16.0); Mean Corpuscular Hemoglobin 30.3 pg (27.0-31.0); Mean Corpuscular Volume 97.8 fL (78.0-98.0); Mean Platelet Volume 10.2 fL (7.4-10.4); Platelet Count 210 10x3/uL (130-400); RBC Distribution Width 14.6 % (11.5-14.5); Red Blood Cell (RBC) Count 3.17 mill/uL (4.20-5.40)
[2024-04-19 06:35] LABS: Anion Gap 14 mmol/L (10-20); BUN (Urea Nitrogen) 27 mg/dL (7.0-18.7); Calc. Creatinine Clearance 18 mL/min (70-130); Calcium 8.8 mg/dL (7.8-10.44); Carbon Dioxide 27 mmol/L (22-29); Chloride 97 mmol/L (98-107); Estimated GFR 10; Glucose 306 mg/dL (70-105); Magnesium 2.4 mg/dL (1.6-2.6); Potassium 4.9 mmol/L (3.5-5.1); Sodium 133 mmol/L (136-145)
[2024-04-19] MEDS: Insulin Glargine 30 UNITS/0.3 ML VIAL SC SCH (08:03)
[2024-04-19 08:34] VITALS: TEMP 98.3
[2024-04-19] MEDS ORDERED: Enoxaparin 40 MG (0.4 mL) SYRINGE SC SCH (09:00)
[2024-04-19] MEDS: Senokot S 8.6-50 MG TAB PO SCH (11:44)
[2024-04-19] MEDS: Polyethylene Glycol 3350 17 GM Packet PO SCH (11:46)
[2024-04-19] MEDS: Losartan 25 MG TAB PO SCH (13:31)
[2024-04-19] MEDS ORDERED: Glucagon 1 MG/ML KIT IM PRN (14:44)
[2024-04-19] MEDS ORDERED: Dextrose 50% Abboject 50 ML SYRINGE SLOW IVP PRN (14:44)
[2024-04-19] MEDS ORDERED: Insulin Lispro 100 UNIT/ML 10 ML VIAL SC PRN ×2 (14:44)
[2024-04-19] MEDS ORDERED: Dextrose 5% in Water 1,000 ML IV PRN (14:44)
[2024-04-19 15:05] LABS: Hemoglobin A1c 9.9 % (4.0-6.0)
[2024-04-19 16:09] VITALS: BP 150/70
[2024-04-19] MEDS: Clindamycin 150 MG CAP PO SCH (16:46)
[2024-04-19] MEDS ORDERED: Insulin Glargine 30 UNITS/0.3 ML VIAL SC SCH (21:00)
[2024-04-20] MEDS ORDERED: Polyethylene Glycol 3350 17 GM Packet PO SCH (09:00)
[2024-04-20] MEDS ORDERED: Losartan 25 MG TAB PO SCH (09:00)
[2024-04-20] MEDS ORDERED: Insulin Glargine 30 UNITS/0.3 ML VIAL SC SCH (09:00)
== END 2024-04-19 17:30 | disposition home or self-care (01) | DRG 749 ==
LOC: ERS 14:52 → T4-B 21:26 → UNDOADMIN 21:26 → SURG A 22:21 → T4-B 22:21 → SURG A 23:18 → CCU 04-14 00:31 → SURG A 04-14 00:37 → T4-B 04-14 01:17
PROVIDERS: ADMIT Internal Medicine; ATTEND Family Medicine
PROC: 0HB9XZZ Excision of Perineum Skin, External Approach (ICD-10-PCS; principal; 2024-04-13)
PROC: 0J9B0ZZ Drainage of Perineum Subcutaneous Tissue and Fascia, Open Approach (ICD-10-PCS; 2024-04-13)
PROC: 0JBB0ZZ Excision of Perineum Subcutaneous Tissue and Fascia, Open Approach (ICD-10-PCS; 2024-04-14)
PROC: 5A1D70Z Performance of Urinary Filtration, Intermittent, Less than 6 Hours Per Day (ICD-10-PCS; 2024-04-14)
PROC: 5A1D70Z Performance of Urinary Filtration, Intermittent, Less than 6 Hours Per Day (ICD-10-PCS; 2024-04-16)
DX: N76.82 Fournier disease of vagina and vulva (principal); N18.6 End stage renal disease; L02.215 Cutaneous abscess of perineum; I13.2 Hypertensive heart and chronic kidney disease with heart failure and with stage 5 chronic kidney disease, or end stage renal disease; I50.32 Chronic diastolic (congestive) heart failure; E87.1 Hypo-osmolality and hyponatremia; J44.9 Chronic obstructive pulmonary disease, unspecified; F31.9 Bipolar disorder, unspecified; E78.5 Hyperlipidemia, unspecified; F17.210 Nicotine dependence, cigarettes, uncomplicated; E11.65 Type 2 diabetes mellitus with hyperglycemia; E11.22 Type 2 diabetes mellitus with diabetic chronic kidney disease; D63.1 Anemia in chronic kidney disease; E83.39 Other disorders of phosphorus metabolism; Z79.899 Other long term (current) drug therapy; Z98.890 Other specified postprocedural states; Z88.8 Allergy status to other drugs, medicaments and biological substances; Z99.2 Dependence on renal dialysis; Z82.49 Family history of ischemic heart disease and other diseases of the circulatory system
CPT/HCPCS: 36415; 36416; 70470; 74176; 80048; 80053; 80202; 82010; 82805; 83036; 83605; 83735; 83970; 84100; 84703; 85025; 87040; 87070; 87076; 87077; 87186; 87205; 90935; 93306; 96361; 96365; 96366; 96367; 96375; 97139; G0257; J0171; J0665; J0692; J0696; J1100; J1644; J1815; J1956; J2250; J2272; J2405; J2543; J2704; J3010; J3370; J3370-JW; J3490; Q5105; Q9967

== ENCOUNTER 2024-06-10 05:40 | Day surgery (SDC) | payer OTHER, MEDICAID ==
[2024-05-15 11:46] VITALS: BMI 30.4
[2024-06-10] MEDS ORDERED: Nitroglycerin 50 MG/250 ML BOT 250 ML ONE (06:01)
[2024-06-10] MEDS ORDERED: Heparin 10,000 UNITS/ 10 ML VIAL ONE (06:01)
[2024-06-10] MEDS ORDERED: Adenosine 6 mg (2 mL) VIAL ONE (06:01)
[2024-06-10] MEDS ORDERED: fentaNYL 50 mcg/mL 1 mL Vial ONE (06:01)
[2024-06-10] MEDS ORDERED: Verapamil 5 MG/2 ML VIAL ONE (06:01)
[2024-06-10] MEDS ORDERED: Midazolam HCl 2 mg/2 ml Vial ONE (06:01)
[2024-06-10] MEDS ORDERED: Diazepam 5 MG TAB ONE (06:58)
[2024-06-10 06:59] LABS: #Basophils 0.09 10x3/uL (0.0-0.2); %Basophils 1.1 % (0.0-1.0); %Eosinophils 6.4 % (0.0-10.0); %Lymphocytes 18.7 % (21.0-51.0); %Monocytes 7.5 % (0.0-10.0); %Neutrophils 66.1 % (42.0-75.0); Hematocrit 32.2 % (36.0-47.0); Hemoglobin 10.3 g/dL (12.0-16.0); Mean Corpuscular Hemoglobin 30.8 pg (27.0-31.0); Mean Corpuscular Volume 96.4 fL (78.0-98.0); Mean Platelet Volume 11.1 fL (7.4-10.4); Platelet Count 198 10x3/uL (130-400); RBC Distribution Width 14.9 % (11.5-14.5); Red Blood Cell (RBC) Count 3.34 mill/uL (4.20-5.40)
[2024-06-10] MEDS ORDERED: cloNIDine 0.1 MG TAB ONE (06:59)
[2024-06-10 07:13] LABS: Anion Gap 18 mmol/L (10-20); BUN (Urea Nitrogen) 36 mg/dL (7.0-18.7); Calc. Creatinine Clearance 13 mL/min (70-130); Calcium 8.8 mg/dL (7.8-10.44); Carbon Dioxide 24 mmol/L (22-29); Chloride 98 mmol/L (98-107); Estimated GFR 7; Glucose 251 mg/dL (70-105); Potassium 3.8 mmol/L (3.5-5.1); Sodium 136 mmol/L (136-145)
[2024-06-10] MEDS ORDERED: hydrALAZINE 20 MG/ML VIAL ONE ×2 (07:29→08:07)
[2024-06-10] MEDS ORDERED: Clopidogrel Bisulfate 300 MG TAB ONE (08:40)
[2024-06-10] MEDS ORDERED: Ondansetron PF 4 MG/2 ML Vial ONE (08:53)
[2024-06-10] MEDS ORDERED: Cyclobenzaprine 10 MG TAB ONE (09:11)
== END 2024-06-10 17:55 | disposition home or self-care (01) ==
LOC: CCL 05:40
PROVIDERS: ATTEND Internal Medicine Cardiovascular Disease
PROC: B200YZZ Plain Radiography of Single Coronary Artery using Other Contrast (ICD-10-PCS; principal; 2024-06-10)
DX: I25.10 Atherosclerotic heart disease of native coronary artery without angina pectoris (principal); I73.9 Peripheral vascular disease, unspecified; I12.0 Hypertensive chronic kidney disease with stage 5 chronic kidney disease or end stage renal disease; N18.6 End stage renal disease; E11.22 Type 2 diabetes mellitus with diabetic chronic kidney disease; E11.40 Type 2 diabetes mellitus with diabetic neuropathy, unspecified; J44.9 Chronic obstructive pulmonary disease, unspecified; F17.210 Nicotine dependence, cigarettes, uncomplicated; Z99.2 Dependence on renal dialysis; Z88.8 Allergy status to other drugs, medicaments and biological substances; Z79.51 Long term (current) use of inhaled steroids; Z79.4 Long term (current) use of insulin; Z79.899 Other long term (current) drug therapy
CPT/HCPCS: 80048; 85025; 85347; 93454; C1725; C1760; C1769 ×5; C1874; C1887 ×2; C1894 ×2; C9600; J0360; J1644; J2250; J2405; J3010; 92928; 99152; 99153; J0153

== ENCOUNTER 2025-02-10 13:30 | Inpatient (IN) | payer OTHER, MEDICAID ==
[2025-02-10 14:30] LABS: #Basophils 0.04 10x3/uL (0.0-0.2); #Eosinophils 0.15 10x3/uL (0.0-0.7); #Monocytes 0.44 10x3/uL (0.11-0.59); #Neutrophils 4.45 10x3/uL (1.40-6.50); %Basophils 0.6 % (0.0-1.0); %Eosinophils 2.4 % (0.0-10.0); %Lymphocytes 18.8 % (21.0-51.0); %Monocytes 7.0 % (0.0-10.0); %Neutrophils 70.9 % (42.0-75.0); Hematocrit 33.3 % (36.0-47.0); Hemoglobin 11.4 g/dL (12.0-16.0); Mean Corpuscular Hemoglobin 32.6 pg (27.0-31.0); Mean Corpuscular Volume 95.1 fL (78.0-98.0); Platelet Count 189 10x3/uL (130-400); Red Blood Cell (RBC) Count 3.50 mill/uL (4.20-5.40); White Blood Cell (WBC) Count 6.28 10x3/uL (4.8-10.8)
[2025-02-10] MEDS ORDERED: Ondansetron PF 4 MG/2 ML Vial ONE (14:42)
[2025-02-10 14:43] LABS: BHCG - Serum POSITIVE (NEGATIVE); Pregs Control Background? CLEAR/WHITE (CLR/WHITE); Pregs Control Bar Appear? YES (CONTROL BAR)
[2025-02-10 14:50] LABS: ALT (SGPT) 12 U/L (Less than 34); AST (SGOT) 16 U/L (11-34); Albumin 3.3 g/dL (3.1-4.5); Alkaline Phosphatase 85 U/L (40-110); Anion Gap 14 mmol/L (10-20); BUN (Urea Nitrogen) 16 mg/dL (7.0-18.7); Bilirubin, Total 0.6 mg/dL (0.3-1.2); Calc. Creatinine Clearance 0 mL/min (70-130); Calcium 9.3 mg/dL (7.8-10.44); Carbon Dioxide 29 mmol/L (22-29); Chloride 92 mmol/L (98-107); Globulin 3.6 g/dL (2.4-3.5); Glucose 354 mg/dL (70-105); Lipase 53 U/L (8-78); Potassium 3.6 mmol/L (3.5-5.1); Sodium 131 mmol/L (136-145)
[2025-02-10 14:55] LABS: Troponin I 0.280 ng/mL (< 0.028)
[2025-02-10 15:03] LABS: Pregnancy Test - Urine (BHCG) Negative (Negative); Pregu Control Background? CLEAR/WHITE (CLR/WHITE); Pregu Control Bar Appear? YES (CONTROL BAR)
[2025-02-10] MEDS ORDERED: Cyclobenzaprine 10 MG TAB ONE (16:47)
[2025-02-10] MEDS ORDERED: hydrALAZINE 20 MG/ML VIAL ONE (16:48)
[2025-02-10] MEDS ORDERED: Aspirin Chewable 81 MG TAB ONE (17:19)
[2025-02-10] MEDS ORDERED: niCARdipine 25 MG/10 ML SDV ONE (17:31)
[2025-02-10 17:35] LABS: Troponin I 0.245 ng/mL (< 0.028)
[2025-02-10] MEDS ORDERED: Gabapentin 300 MG CAP ONE (18:35)
[2025-02-10 18:53] LABS: Troponin I 0.256 ng/mL (< 0.028)
[2025-02-10] MEDS ORDERED: Calcium Carbonate 500 MG ChewTAB PO PRN (19:45)
[2025-02-10] MEDS ORDERED: Albuterol 200 PUFF (6.7GM INHALER) INH PRN (19:48)
[2025-02-10] MEDS ORDERED: Glucagon 1 MG/ML KIT IM PRN (19:54)
[2025-02-10] MEDS ORDERED: Dextrose 50% Abboject 50 ML SYRINGE SLOW IVP PRN (19:54)
[2025-02-10] MEDS: DULoxetine 20 MG CAP PO SCH (20:43)
[2025-02-10] MEDS: Gabapentin 300 MG CAP PO SCH (20:43)
[2025-02-10] MEDS: Cyclobenzaprine 10 MG TAB PO SCH (20:44)
[2025-02-10] MEDS: niCARdipine 25 MG in Sodium Chloride 0.9% 250 ML 250 ML IVPB SCH (20:53)
[2025-02-10] MEDS: Insulin Glargine 30 UNITS/0.3 ML VIAL SC SCH (20:56)
[2025-02-11 04:01] LABS: #Basophils 0.05 10x3/uL (0.0-0.2); #Eosinophils 0.30 10x3/uL (0.0-0.7); #Monocytes 0.62 10x3/uL (0.11-0.59); #Neutrophils 4.20 10x3/uL (1.40-6.50); %Basophils 0.8 % (0.0-1.0); %Eosinophils 4.5 % (0.0-10.0); %Lymphocytes 21.4 % (21.0-51.0); %Monocytes 9.4 % (0.0-10.0); %Neutrophils 63.6 % (42.0-75.0); Hematocrit 34.0 % (36.0-47.0); Hemoglobin 11.5 g/dL (12.0-16.0); Mean Corpuscular Hemoglobin 32.2 pg (27.0-31.0); Mean Corpuscular Volume 95.2 fL (78.0-98.0); Platelet Count 176 10x3/uL (130-400); Red Blood Cell (RBC) Count 3.57 mill/uL (4.20-5.40); White Blood Cell (WBC) Count 6.60 10x3/uL (4.8-10.8)
[2025-02-11 04:21] LABS: ALT (SGPT) 11 U/L (Less than 34); AST (SGOT) 18 U/L (11-34); Albumin 2.8 g/dL (3.1-4.5); Alkaline Phosphatase 70 U/L (40-110); Anion Gap 16 mmol/L (10-20); BUN (Urea Nitrogen) 23 mg/dL (7.0-18.7); Bilirubin, Total 0.4 mg/dL (0.3-1.2); Calc. Creatinine Clearance 14 mL/min (70-130); Calcium 8.7 mg/dL (7.8-10.44); Carbon Dioxide 25 mmol/L (22-29); Chloride 96 mmol/L (98-107); Globulin 3.3 g/dL (2.4-3.5); Glucose 169 mg/dL (70-105); Potassium 3.8 mmol/L (3.5-5.1); Sodium 133 mmol/L (136-145)
[2025-02-11] MEDS ORDERED: Sucroferric Oxyhydroxide [Velphoro] 500 MG Tab.Chew PO SCH (08:00)
[2025-02-11] MEDS: Aspirin 81 mg Enteric Coated Tablet PO SCH (09:05)
[2025-02-11] MEDS: Losartan 25 MG TAB PO SCH (09:05)
[2025-02-11] MEDS: Pantoprazole 40 MG DR.TAB PO SCH (09:08)
[2025-02-11] MEDS: hydrALAZINE 20 MG/ML VIAL SLOW IVP PRN (09:49)
[2025-02-11] MEDS ORDERED: NIFEdipine 10 MG CAP PO SCH (12:00)
[2025-02-11] MEDS: Ondansetron PF 4 MG/2 ML Vial IVP PRN (12:04)
[2025-02-11] MEDS: cloNIDine 0.1 MG TAB PO SCH ×2 (12:37→20:01)
[2025-02-11 13:20] VITALS: BMI 27.4
[2025-02-11] MEDS: NIFEdipine XL 60 MG ER.TAB PO SCH (16:59)
[2025-02-11] MEDS: Acetaminophen 325 MG TAB PO PRN (19:27)
[2025-02-11] MEDS: Carvedilol 25 MG TAB PO SCH (20:00)
[2025-02-11] MEDS: Famotidine 20 MG TAB PO SCH (20:00)
[2025-02-11] MEDS ORDERED: NIFEdipine XL 60 MG ER.TAB PO SCH (21:00)
[2025-02-11] MEDS: Cyclobenzaprine 10 MG TAB PO SCH (21:41)
[2025-02-12 04:54] VITALS: BMI 27.5
[2025-02-12 05:15] LABS: #Basophils 0.05 10x3/uL (0.0-0.2); #Eosinophils 0.28 10x3/uL (0.0-0.7); #Monocytes 0.60 10x3/uL (0.11-0.59); #Neutrophils 4.68 10x3/uL (1.40-6.50); %Basophils 0.7 % (0.0-1.0); %Eosinophils 3.9 % (0.0-10.0); %Lymphocytes 22.2 % (21.0-51.0); %Monocytes 8.3 % (0.0-10.0); %Neutrophils 64.3 % (42.0-75.0); Hematocrit 33.2 % (36.0-47.0); Hemoglobin 11.2 g/dL (12.0-16.0); Mean Corpuscular Hemoglobin 32.2 pg (27.0-31.0); Mean Corpuscular Volume 95.4 fL (78.0-98.0); Platelet Count 159 10x3/uL (130-400); Red Blood Cell (RBC) Count 3.48 mill/uL (4.20-5.40); White Blood Cell (WBC) Count 7.26 10x3/uL (4.8-10.8)
[2025-02-12 05:41] LABS: Anion Gap 16 mmol/L (10-20); BUN (Urea Nitrogen) 57 mg/dL (7.0-18.7); Calc. Creatinine Clearance 12 mL/min (70-130); Calcium 8.8 mg/dL (7.8-10.44); Carbon Dioxide 23 mmol/L (22-29); Chloride 91 mmol/L (98-107); Glucose 397 mg/dL (70-105); Potassium 5.0 mmol/L (3.5-5.1); Sodium 125 mmol/L (136-145)
[2025-02-12] MEDS ORDERED: Pantoprazole 40 MG DR.TAB PO SCH (09:00)
[2025-02-12] MEDS ORDERED: Heparin 10,000 UNITS/ 10 ML VIAL ONE (10:07)
[2025-02-12] MEDS: Heparin 5,000 UNITS/ML VIAL SC SCH (14:58)
[2025-02-12] MEDS: NIFEdipine XL 60 MG ER.TAB PO SCH (21:10)
[2025-02-12] MEDS ORDERED: DULoxetine 30 MG CAP PO SCH (21:29)
[2025-02-12] MEDS: Fioricet 325/50/40 mg Tablet PO PRN (21:36)
[2025-02-12] MEDS: DULoxetine 30 MG CAP PO SCH (21:36)
[2025-02-12] MEDS: hydrALAZINE 20 MG/ML VIAL SLOW IVP SCH (23:36)
[2025-02-13 08:22] LABS: Anion Gap 15 mmol/L (10-20); BUN (Urea Nitrogen) 36 mg/dL (7.0-18.7); Calc. Creatinine Clearance 16 mL/min (70-130); Calcium 8.5 mg/dL (7.8-10.44); Carbon Dioxide 23 mmol/L (22-29); Chloride 97 mmol/L (98-107); Glucose 106 mg/dL (70-105); Potassium 4.2 mmol/L (3.5-5.1); Sodium 131 mmol/L (136-145)
[2025-02-13 16:01] VITALS: TEMP 97
[2025-02-13] MEDS ORDERED: Albuterol 2.5 MG (3 mL) NEB NEB PRN (16:52)
[2025-02-13 17:35] VITALS: BP 166/90
[2025-02-13] MEDS ORDERED: DULoxetine 30 MG CAP PO SCH (21:00)
== END 2025-02-13 17:41 | disposition home or self-care (01) | DRG 304 ==
LOC: ERS 13:30 → CCU 17:56 → T4-A 02-12 13:02
PROVIDERS: ADMIT Family Medicine; ATTEND Internal Medicine
DX: I16.1 Hypertensive emergency (principal); N18.6 End stage renal disease; E87.1 Hypo-osmolality and hyponatremia; I5A Non-ischemic myocardial injury (non-traumatic); E11.22 Type 2 diabetes mellitus with diabetic chronic kidney disease; Z99.2 Dependence on renal dialysis; D63.1 Anemia in chronic kidney disease; J44.9 Chronic obstructive pulmonary disease, unspecified; Z79.899 Other long term (current) drug therapy; Z79.4 Long term (current) use of insulin; E78.00 Pure hypercholesterolemia, unspecified; F17.210 Nicotine dependence, cigarettes, uncomplicated; I12.0 Hypertensive chronic kidney disease with stage 5 chronic kidney disease or end stage renal disease; E11.65 Type 2 diabetes mellitus with hyperglycemia; Z33.1 Pregnant state, incidental
CPT/HCPCS: 36415; 36416; 74176; 76856; 80048; 80053; 81025; 82105; 83036; 83690; 84443; 84484; 84702; 84703; 85025; 86304; 87324; 87449; 93005; 96365; 96366; 96375; J0360; J1644; J1815; J2405; J7050

== ENCOUNTER 2025-04-07 09:43 | Emergency (ER) | payer OTHER ==
[2025-04-07] MEDS ORDERED: Dexamethasone 10 MG/ML VIAL ONE (13:19)
[2025-04-07 14:02] LABS: #Basophils 0.07 10x3/uL (0.0-0.2); #Eosinophils 0.09 10x3/uL (0.0-0.7); #Monocytes 0.71 10x3/uL (0.11-0.59); #Neutrophils 6.30 10x3/uL (1.40-6.50); %Basophils 0.8 % (0.0-1.0); %Eosinophils 1.0 % (0.0-10.0); %Lymphocytes 18.5 % (21.0-51.0); %Monocytes 8.0 % (0.0-10.0); %Neutrophils 71.4 % (42.0-75.0); Hematocrit 30.9 % (36.0-47.0); Hemoglobin 10.2 g/dL (12.0-16.0); Mean Corpuscular Hemoglobin 30.3 pg (27.0-31.0); Mean Corpuscular Volume 91.7 fL (78.0-98.0); Platelet Count 179 10x3/uL (130-400); Red Blood Cell (RBC) Count 3.37 mill/uL (4.20-5.40); White Blood Cell (WBC) Count 8.83 10x3/uL (4.8-10.8)
[2025-04-07 14:20] LABS: ALT (SGPT) 8 U/L (Less than 34); AST (SGOT) 14 U/L (11-34); Albumin 3.1 g/dL (3.1-4.5); Alkaline Phosphatase 73 U/L (40-110); Anion Gap 22 mmol/L (10-20); BUN (Urea Nitrogen) 38 mg/dL (7.0-18.7); Bilirubin, Total 0.4 mg/dL (0.3-1.2); Calc. Creatinine Clearance 0 mL/min (70-130); Calcium 9.3 mg/dL (7.8-10.44); Carbon Dioxide 22 mmol/L (22-29); Chloride 96 mmol/L (98-107); Globulin 3.3 g/dL (2.4-3.5); Glucose 271 mg/dL (70-105); Potassium 4.3 mmol/L (3.5-5.1); Sodium 136 mmol/L (136-145)
[2025-04-07] MEDS ORDERED: hydrALAZINE 20 MG/ML VIAL ONE (15:36)
[2025-04-07] MEDS ORDERED: Nitroglycerin 2% Ointment 1 INCH/1 GM Packet ONE (15:37)
== END 2025-04-07 17:05 | disposition home or self-care (01) ==
LOC: ERS 09:43
DX: M54.9 Dorsalgia, unspecified (principal); I13.2 Hypertensive heart and chronic kidney disease with heart failure and with stage 5 chronic kidney disease, or end stage renal disease; E11.22 Type 2 diabetes mellitus with diabetic chronic kidney disease; N18.6 End stage renal disease; I50.9 Heart failure, unspecified; F17.210 Nicotine dependence, cigarettes, uncomplicated; J45.909 Unspecified asthma, uncomplicated; Z79.4 Long term (current) use of insulin; Z99.2 Dependence on renal dialysis; Z79.899 Other long term (current) drug therapy
CPT/HCPCS: 72128; 72131; 80053; 85025; 93005; J0360; J1100; 96374; 96375; J2270

== ENCOUNTER 2025-04-19 12:23 | Emergency (ER) | payer MEDICAID, MEDICARE, OTHER ==
[2025-04-19] MEDS ORDERED: HYDROcodone/Acetaminophen 5/325 mg Tablet ONE (13:33)
[2025-04-19 14:04] LABS: #Basophils 0.05 10x3/uL (0.0-0.2); #Eosinophils 0.19 10x3/uL (0.0-0.7); #Monocytes 0.55 10x3/uL (0.11-0.59); #Neutrophils 5.85 10x3/uL (1.40-6.50); %Basophils 0.6 % (0.0-1.0); %Eosinophils 2.4 % (0.0-10.0); %Lymphocytes 14.2 % (21.0-51.0); %Monocytes 7.1 % (0.0-10.0); %Neutrophils 75.3 % (42.0-75.0); Hematocrit 31.0 % (36.0-47.0); Hemoglobin 10.3 g/dL (12.0-16.0); Mean Corpuscular Hemoglobin 29.9 pg (27.0-31.0); Mean Corpuscular Volume 90.1 fL (78.0-98.0); Platelet Count 168 10x3/uL (130-400); Red Blood Cell (RBC) Count 3.44 mill/uL (4.20-5.40); White Blood Cell (WBC) Count 7.77 10x3/uL (4.8-10.8)
[2025-04-19 14:16] LABS: ALT (SGPT) 8 U/L (Less than 34); AST (SGOT) 15 U/L (11-34); Albumin 3.0 g/dL (3.1-4.5); Alkaline Phosphatase 72 U/L (40-110); Anion Gap 12 mmol/L (10-20); BUN (Urea Nitrogen) 19 mg/dL (7.0-18.7); Bilirubin, Total 0.4 mg/dL (0.3-1.2); Calc. Creatinine Clearance 0 mL/min (70-130); Calcium 9.2 mg/dL (7.8-10.44); Carbon Dioxide 29 mmol/L (22-29); Chloride 93 mmol/L (98-107); Globulin 3.7 g/dL (2.4-3.5); Glucose 318 mg/dL (70-105); Potassium 2.9 mmol/L (3.5-5.1); Sodium 131 mmol/L (136-145)
== END 2025-04-19 14:40 | disposition home or self-care (01) ==
LOC: ERS 12:23
DX: M54.50 Low back pain, unspecified (principal); G89.29 Other chronic pain; I13.2 Hypertensive heart and chronic kidney disease with heart failure and with stage 5 chronic kidney disease, or end stage renal disease; I50.9 Heart failure, unspecified; N18.6 End stage renal disease; E11.22 Type 2 diabetes mellitus with diabetic chronic kidney disease; Z99.2 Dependence on renal dialysis; Z79.4 Long term (current) use of insulin; Z79.899 Other long term (current) drug therapy
CPT/HCPCS: 36415; 71045; 72131; 80053; 84484; 85025; 86141; 93005

== ENCOUNTER 2025-07-02 09:31 | Emergency (ER) | payer OTHER, MEDICAID ==
[2025-07-02] MEDS ORDERED: HYDROcodone/Acetaminophen 5/325 mg Tablet ONE (12:51)
[2025-07-02 13:46] LABS: Pregs Control Background? CLEAR/WHITE (CLR/WHITE); Pregs Control Bar Appear? YES (CONTROL BAR)
[2025-07-02 13:47] LABS: BHCG - Serum POSITIVE (NEGATIVE)
[2025-07-02] MEDS ORDERED: predniSONE 20 MG TAB ONE (14:48)
== END 2025-07-02 16:08 | disposition home or self-care (01) ==
LOC: ERS 09:31
DX: M70.71 Other bursitis of hip, right hip (principal); E11.22 Type 2 diabetes mellitus with diabetic chronic kidney disease; N18.6 End stage renal disease; I13.2 Hypertensive heart and chronic kidney disease with heart failure and with stage 5 chronic kidney disease, or end stage renal disease; I50.9 Heart failure, unspecified; E78.00 Pure hypercholesterolemia, unspecified; J45.909 Unspecified asthma, uncomplicated; F17.210 Nicotine dependence, cigarettes, uncomplicated; Z79.899 Other long term (current) drug therapy; Z99.2 Dependence on renal dialysis; Z79.4 Long term (current) use of insulin; Z79.51 Long term (current) use of inhaled steroids
CPT/HCPCS: 84702; 84703; 99284; J7512